=== PATIENT | female | born 1940 | race Caucasian/White ===

== ENCOUNTER → 2016-09-16 | Outpatient (CLI) | payer OTHER ==
[~2016-09-16] MED LIST: ASPCH81X PO; B-COTAB18 PO; CALC-478 PO; CHOL1TAB42 PO; FLUT0.15 NAE; MULT-506 PO; OMEGCAP2 PO; PRLSR20 PO; SIMV20TA2 PO
--- NOTE | 2016-10-20 08:59 | CODING QUERY NO DIAGNOSIS ---
TREATMENT RENDERED WITHOUT A DIAGNOSIS 40 To promote full compliance with coding requirements relating to patient care, physician participation is requested in all cases of milk sampler uncertainty. Please assist us with providing a diagnosis/symptom for the test(s) below: A diagnosis/symptom was not documented on your Order. A valid diagnosis/symptom is required to bill all insurances. Please remember that we are unable to code a diagnosis of rule out, probable, possible, questionable, or suspected. DOS 09/16/16 Tests that require a diagnosis: * LAB DIAGNOSIS: Provider Signature: Date: Thank you Daisy Hadley [employer] Information Management Once completed, please kindly fax back to [phone] For questions please call [phone]
== END | disposition home or self-care (01) ==
LOC: C.LAB 09:07
PROVIDERS: ATTEND Nutritionist
DX: R53.83 Other fatigue (principal)

== ENCOUNTER → 2016-09-19 | Outpatient (CLI) | payer OTHER | END | disposition home or self-care (01) | LOC: C.LAB1850 12:15 | PROVIDERS: ATTEND Internal Medicine Rheumatology | DX: R70.0 Elevated erythrocyte sedimentation rate (principal); M35.3 Polymyalgia rheumatica ==

== ENCOUNTER → 2016-10-18 | Outpatient (CLI) | payer OTHER ==
[2016-10-19 06:30] LABS: ESTIMATED AVERAGE GLUCOSE 111 mg/dl; HA1C FLAG Normal (Normal)
== END | disposition home or self-care (01) ==
LOC: C.LAB1850 16:25
PROVIDERS: ATTEND Internal Medicine Rheumatology
DX: R73.01 Impaired fasting glucose (principal); R70.0 Elevated erythrocyte sedimentation rate; M35.3 Polymyalgia rheumatica

== ENCOUNTER → 2016-10-28 | Outpatient (CLI) | payer OTHER | END | disposition home or self-care (01) | LOC: C.MAMM 08:17 | PROVIDERS: ATTEND Internal Medicine | DX: M35.3 Polymyalgia rheumatica (principal); R29.890 Loss of height; Z78.0 Asymptomatic menopausal state; Z79.52 Long term (current) use of systemic steroids ==

== ENCOUNTER → 2016-12-10 | Outpatient (CLI) | payer OTHER | END | disposition home or self-care (01) | LOC: C.LAB1850 12:18 | PROVIDERS: ATTEND Internal Medicine Rheumatology | DX: M35.3 Polymyalgia rheumatica (principal) ==

== ENCOUNTER → 2017-01-13 | Outpatient (CLI) | payer OTHER ==
[2017-01-13 13:08] LABS: BASO % 0.1 %; BASO ABS # 0.01 K/uL (0-0.2); COMPLETE YES; HEMATOCRIT 36.5 % (37-47); IG% 0.1 %; LYMPH % 10.3 %; LYMPH ABS # 0.98 K/uL (1.2-3.4); MEAN CELL VOLUME 91.3 fL (80-100); MEAN CORPUSCULAR HEMOGLOBIN 30.8 pg (25-34); MEAN CORPUSCULAR HGB CONC 33.7 g/dl (32-36); MEAN PLATELET VOLUME 9.3 fL (7.4-10.4); NEUT % 83.5 %; PLATELET COUNT 279 K/uL (130-400); WHITE BLOOD COUNT 9.52 K/uL (4.8-10.8)
[2017-01-13 14:17] LABS: ALB/GLOB RATIO 0.8 (0.9-2); ALKALINE PHOSPHATASE 65 U/L (45-117); ALT/SGPT 40 U/L (12-78); AST/SGOT 15 U/L (15-37); BLOOD UREA NITROGEN 11 mg/dl (7-18); BUN/CREATININE RATIO 17.3 (10-20); CALCIUM 8.8 mg/dl (8.5-10.1); CARBON DIOXIDE 28 mmol/L (21-32); CHLORIDE 100 mmol/L (98-107); CREATININE 0.66 mg/dl (0.60-1.20); GLUCOSE 115 mg/dl (70-99); HDL CHOLESTEROL 61 mg/dl; SODIUM 138 mmol/L (136-145)
[2017-01-13 14:25] LABS: CHOLESTEROL 125 mg/dl (0-200); LDL CHOLESTEROL CALCULATED 43 mg/dl; THYROID STIMULATING HORMONE 0.285 uIu/ml (0.300-4.500); TRIGLYCERIDES 106 mg/dl (0-150); VERY LOW DENSITY LIPOPROT CALC 21 mg/dl
== END | disposition home or self-care (01) ==
LOC: C.LAB1850 11:38
PROVIDERS: ATTEND Nurse Practitioner Adult Health
DX: M35.3 Polymyalgia rheumatica (principal); E78.00 Pure hypercholesterolemia, unspecified; R00.0 Tachycardia, unspecified

== ENCOUNTER → 2017-01-16 | Outpatient (CLI) | payer OTHER ==
[~2017-01-16] MED LIST changes: +OPTIRAY 320 IV PRN
--- NOTE | 2017-01-16 14:23 | DIAGNOSTIC IMAGING REPORT ---
CT ABD/PELVIS IV AND ORAL CONT CLINICAL HISTORY: Tachycardia, nausea, vomiting, diarrhea. COMPARISON STUDY: None. TECHNIQUE: Following the IV administration of 92 mL of Optiray-320, CT scan of the abdomen and pelvis was performed from the lung bases to the proximal femurs. Images are reviewed in the axial, sagittal, and coronal planes. IV contrast was administered without complication. CT DOSE: 729.33 mGy.cm FINDINGS: Lower chest: The heart is normal in size and configuration, without pericardial effusion. The lung bases and pleural spaces are clear. Liver: There is mild hepatic steatosis. There is a 16 mm left lobe hypodensity, likely representing a cyst. Gallbladder: Surgically absent Spleen: Normal in size and attenuation. Pancreas: No pancreatic masses are visualized. There is infiltration of the central mesenteric fat. There is a 24 mm hypodense lesion abutting the undersurface of the pancreas, Hospital representing a peripancreatic collection. Correlation with appropriate biochemical markers are recommended to help confirm or exclude the presence of pancreatitis. Adrenal glands: Unremarkable. Kidneys: There is symmetric renal cortical enhancement. The kidneys are normal in size without hydronephrosis. Bowel: There are no transition zones indicate bowel obstruction. There is no acute diverticulitis. By history the appendix is surgically absent. Peritoneum: There is no intraperitoneal free air or abdominal ascites. Vasculature: The abdominal aorta is normal in course and caliber. Adenopathy: None. Pelvic viscera: There is a calcified uterine fibroid. There is also a 9 mm exophytic left uterine fibroid. Skeletal structures: No destructive osseous lesions are seen. IMPRESSION: 1. Infiltration of the central mesenteric fat. Peripancreatic fluid collection along the undersurface of the pancreas and abutting the transverse duodenum. Although significant pancreatic edema is not currently visible, the findings are likely the sequela of pancreatitis with a peripancreatic fluid collection. Please correlate clinically as well as with appropriate biochemical markers. 2. No evidence of bowel obstruction. No evidence of free air 3. No evidence of acute diverticulitis 4. Uterine fibroids 5. 16 mm left lobe hepatic hypodensity likely representing a cyst Electronically signed by: Wojciech Estevez M.D. 01/16/2017 2:22 PM Dictated Date/Time: 01/16/2017 2:10 PM
== END | disposition home or self-care (01) ==
LOC: C.CTS 13:13
PROVIDERS: ATTEND Nurse Practitioner Adult Health
DX: R10.814 Left lower quadrant abdominal tenderness (principal); R10.12 Left upper quadrant pain; R19.7 Diarrhea, unspecified; R11.2 Nausea with vomiting, unspecified; R00.0 Tachycardia, unspecified; D25.9 Leiomyoma of uterus, unspecified; K76.9 Liver disease, unspecified

== ENCOUNTER → 2017-01-16 | Outpatient (CLI) | payer OTHER ==
[~2017-01-16] MED LIST changes: -OPTIRAY 320 IV PRN
--- NOTE | 2017-01-16 16:35 | ECHOCARDIOGRAM REPORT ---
*NOTICE TO RECEIVING DEMOCRAT AGENCY This information is strictly Confidential and protected under [place] law. [place] law prohibits you from making any further disclosure of this information unless further disclosure is expressly permitted by the written consent of the person to whom it pertains or is authorized by law. A general authorization for the release of medical or other information is not sufficient for this purpose. Hospital accepts no responsibility if the information is made available to any other person, INCLUDING THE PATIENT. Interpretation Summary * Name: NINFA DURAN Study Date: 01/16/2017 02:02 PM BP: 168/70 mmHg * Patient Location: [facility], [place] HR: 95 * : 1940 (M/d/yyyy) Gender: Female Height: 62 in * Age: 76 yrs Ethnicity: [place] Weight: 180 lb * Ordering Physician: Rose Zelaya * Referring Physician: Abdi Jeffrey * Performed By: Mansi Ryan RCS * * Reason For Study: RIGHT BUNDLE BRANCH BLOCK, TACHYCARDIA * BSA: 1.8 m2 * -- Conclusions -- * The study was technically limited. * There is mild concentric left ventricular hypertrophy. * Left ventricular systolic function is normal. * Grade I diastolic dysfunction, (abnormal relaxation pattern). * Injection of contrast documented no interatrial shunt. Procedure Details * The study was technically limited. Left Ventricle * The left ventricle is normal in size. * There is mild concentric left ventricular hypertrophy. * Left ventricular systolic function is normal. * Ejection Fraction = 60-65%. * Grade I diastolic dysfunction, (abnormal relaxation pattern). Right Ventricle * The right ventricle is normal in size and function. Atria * The left atrial size is normal. * Right atrial size is normal. * Injection of contrast documented no interatrial shunt. Mitral Valve * The mitral valve anatomy is normal. * Significant mitral regurgitation is absent. Tricuspid Valve * The tricuspid valve is not well visualized, but is grossly normal. * Significant tricuspid regurgitation is absent. Aortic Valve * The aortic valve is not well visualized. * No hemodynamically significant valvular aortic stenosis. * Trace aortic regurgitation. Great Vessels * The aortic root is normal size. Pericardium/Pleural * There is no pericardial effusion. Great Vessels * Normal inferior vena cava diameter and respiratory variation suggests normal central venous pressure. MMode 2D Measurements and Calculations IVSd 1.5 cm IVSs 1.6 cm LVIDd 3.3 cm LVIDs 2.2 cm LVPWd 1.3 cm LVPWs 1.8 cm IVS/LVPW 1.1 FS 33.8 % EDV(Teich) 44.5 ml ESV(Teich) 16.1 ml EF(Teich) 63.9 % EDV(cubed) 36.3 ml ESV(cubed) 10.5 ml EF(cubed) 71.0 % % IVS thick 7.8 % % LVPW thick 35.9 % LV mass(C)d 154.8 grams LV mass(C)dI 84.7 grams/m\S\2 LV mass(C)s 130.9 grams LV mass(C)sI 71.6 grams/m\S\2 CO(Teich) 2.7 l/min CI(Teich) 1.5 l/min/m\S\2 SV(Teich) 28.4 ml SI(Teich) 15.6 ml/m\S\2 CO(cubed) 2.4 l/min CI(cubed) 1.3 l/min/m\S\2 SV(cubed) 25.8 ml SI(cubed) 14.1 ml/m\S\2 Ao root diam 3.3 cm Ao root area 8.3 cm\S\2 ACS 1.3 cm LA dimension 3.8 cm asc Aorta Diam 1.9 cm LA/Ao 1.2 LVAd ap4 19.6 cm\S\2 LVLd ap4 7.2 cm EDV(MOD-sp4) 44.0 ml LVAs ap4 10.2 cm\S\2 LVLs ap4 5.8 cm ESV(MOD-sp4) 16.0 ml EF(MOD-sp4) 63.6 % LVAd ap2 18.6 cm\S\2 LVLd ap2 7.3 cm EDV(MOD-sp2) 40.0 ml LVAs ap2 10.0 cm\S\2 LVLs ap2 5.6 cm ESV(MOD-sp2) 15.0 ml EF(MOD-sp2) 62.5 % CO(MOD-sp4) 2.7 l/min CI(MOD-sp4) 1.5 l/min/m\S\2 SV(MOD-sp4) 28.0 ml SI(MOD-sp4) 15.3 ml/m\S\2 CO(MOD-sp2) 2.4 l/min CI(MOD-sp2) 1.3 l/min/m\S\2 SV(MOD-sp2) 25.0 ml SI(MOD-sp2) 13.7 ml/m\S\2 Doppler Measurements and Calculations MV E max kendall 65.9 cm/sec MV A max kendall 107.6 cm/sec MV E/A 0.61 MV P1/2t max kendall 69.5 cm/sec MV P1/2t 129.3 msec MVA(P1/2t) 1.7 cm\S\2 MV dec slope 157.5 cm/sec\S\2 MV dec time 0.18 sec Ao V2 max 138.8 cm/sec Ao max PG 7.7 mmHg Ao max PG (full) 2.3 mmHg AI max kendall 310.2 cm/sec AI max PG 38.7 mmHg AI dec slope 178.0 cm/sec\S\2 AI P1/2t 510.4 msec LV V1 max PG 5.4 mmHg LV V1 max 116.0 cm/sec PA V2 max 109.4 cm/sec PA max PG 4.8 mmHg
== END | disposition home or self-care (01) ==
LOC: C.CPL 13:12
PROVIDERS: ATTEND Nurse Practitioner Adult Health
DX: I45.10 Unspecified right bundle-branch block (principal); R00.0 Tachycardia, unspecified; R10.814 Left lower quadrant abdominal tenderness; R10.12 Left upper quadrant pain; R19.7 Diarrhea, unspecified; R11.2 Nausea with vomiting, unspecified; D25.9 Leiomyoma of uterus, unspecified; K76.9 Liver disease, unspecified

== ENCOUNTER → 2017-02-24 | Outpatient (CLI) | payer OTHER | END | disposition home or self-care (01) | LOC: C.LAB 10:09 | PROVIDERS: ATTEND Internal Medicine Rheumatology | DX: H57.10 Ocular pain, unspecified eye (principal); M35.3 Polymyalgia rheumatica ==

== ENCOUNTER → 2017-05-15 | Outpatient (CLI) | payer OTHER | END | disposition home or self-care (01) | LOC: C.LAB1850 14:02 | PROVIDERS: ATTEND Internal Medicine Rheumatology | DX: M35.3 Polymyalgia rheumatica (principal) ==

== ENCOUNTER → 2017-06-03 | Outpatient (CLI) | payer OTHER ==
--- NOTE | 2017-06-04 07:58 | MAMMOGRAPHY REPORT ---
BILATERAL DIGITAL SCREENING MAMMOGRAM TOMOSYNTHESIS WITH CAD: 06/03/2017 CLINICAL HISTORY: Routine screening. Patient has no complaints. TECHNIQUE: Breast tomosynthesis in addition to standard 2D mammography was performed. Current study was also evaluated with a Computer Aided Detection (CAD) system. COMPARISON: Comparison is made to exams dated: 05/31/2016 mammogram, 05/30/2015 mammogram, 04/14/2014 ma mmogram, 04/13/2013 mammogram, 04/02/2012 mammogram, and 06/12/2016 mammogram - [facility]. BREAST COMPOSITION: There are scattered areas of fibroglandular density in both breasts. FINDINGS: There is a stable ribbon-shaped biopsy marker clip in the lower inner quadrant of the right breast. Scattered and grouped punctate microcalcifications bilaterally. The breast parenchymal pat tern is similar to prior exams including stable asymmetry in the left breast. No new suspicious mass , architectural distortion or cluster of microcalcifications is seen. IMPRESSION: ACR BI-RADS CATEGORY 1: NEGATIVE There is no mammographic evidence of malignancy. A 1 year screening mammogram is recommended. The pa tient will receive written notification of the results. Approximately 10% of breast cancers are not detected with mammography. A negative mammographic report should not delay biopsy if a clinically suggestive mass is present. Melissa Felix M.D. ay/:06/03/2017 21:55:06 Process Excellence Manager: Dayanna CARRERA)(Leanne), [facility] letter sent: Normal 1/2 BI-RADS Code: ACR BI-RADS Category 1: Negative
== END | disposition home or self-care (01) ==
LOC: C.MAMM 14:17
PROVIDERS: ATTEND Internal Medicine
DX: Z12.31 Encounter for screening mammogram for malignant neoplasm of breast (principal)

== ENCOUNTER → 2017-07-07 | Outpatient (CLI) | payer OTHER | END | disposition home or self-care (01) | LOC: C.LAB 10:29 | PROVIDERS: ATTEND Internal Medicine Rheumatology | DX: M54.2 Cervicalgia (principal); M35.3 Polymyalgia rheumatica ==

== ENCOUNTER → 2017-07-14 | Outpatient (CLI) | payer OTHER ==
[2017-07-14 10:16] LABS: BLOOD UREA NITROGEN 17 mg/dl (7-18); BUN/CREATININE RATIO 22.4 (10-20); CALCIUM 9.7 mg/dl (8.5-10.1); CARBON DIOXIDE 31 mmol/L (21-32); CHLORIDE 103 mmol/L (98-107); CHOLESTEROL 180 mg/dl (0-200); CREATININE 0.74 mg/dl (0.60-1.20); GLUCOSE 94 mg/dl (70-99); POTASSIUM 4.1 mmol/L (3.5-5.1); SODIUM 139 mmol/L (136-145)
[2017-07-14 10:19] LABS: CHOLESTEROL/HDL RATIO 2.1; HDL CHOLESTEROL 85 mg/dl; LDL CHOLESTEROL CALCULATED 64 mg/dl; TRIGLYCERIDES 157 mg/dl (0-150); VERY LOW DENSITY LIPOPROT CALC 31 mg/dl
== END | disposition home or self-care (01) ==
LOC: C.LAB 08:31
PROVIDERS: ATTEND Nurse Practitioner Adult Health
DX: E78.00 Pure hypercholesterolemia, unspecified (principal); R73.01 Impaired fasting glucose

== ENCOUNTER → 2017-08-05 | Outpatient (CLI) | payer OTHER | END | disposition home or self-care (01) | LOC: C.LAB 13:51 | PROVIDERS: ATTEND Internal Medicine Rheumatology | DX: M54.2 Cervicalgia (principal); M35.3 Polymyalgia rheumatica ==

== ENCOUNTER → 2017-09-29 | Outpatient (CLI) | payer OTHER | END | disposition home or self-care (01) | LOC: C.LAB1850 11:16 | PROVIDERS: ATTEND Internal Medicine | DX: M35.3 Polymyalgia rheumatica (principal); M46.92 Unspecified inflammatory spondylopathy, cervical region ==

== ENCOUNTER → 2017-11-16 | Outpatient (CLI) | payer OTHER | END | disposition home or self-care (01) | LOC: C.LAB 13:56 | PROVIDERS: ATTEND Internal Medicine Rheumatology | DX: M35.3 Polymyalgia rheumatica (principal) ==

== ENCOUNTER → 2018-01-19 | Outpatient (CLI) | payer OTHER | END | disposition home or self-care (01) | LOC: C.LAB 11:08 | PROVIDERS: ATTEND Internal Medicine Rheumatology | DX: M35.3 Polymyalgia rheumatica (principal); Z79.899 Other long term (current) drug therapy; M25.511 Pain in right shoulder; M25.512 Pain in left shoulder ==

== ENCOUNTER 2023-04-21 05:59 | Inpatient (IN) ==
--- NOTE | 2023-04-17 13:44 | Anesthesiology Consultation ---
Date of Service April 17, 2023 Assessment & Plan (1) Encounter for pre-operative examination: Plan - echocardiogram 04/18/23. - will request most recent [facility] cardiology office note. - discharge summary 04/10/23 [facility]: "...resented with transient left vision loss concerning for TIA. MRI did not show any evidence of acute stroke. CT angiogram showed left internal carotid stenosis. She was started on Plavix and atorvastatin for possible TIA. Patient declined overnight observation and preferred discharge home. She has had a past echo this was not with a dedicated bubble study so PFO could not be definitively ruled out, patient was aware of this and would like to follow-up as outpatient. Her blood pressure was transiently high prior to her home and he is hypertensives being administered, was less than 180 following these administration. 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 Further blood pressure titration to be performed as outpatient. Cannot be ruled out that patient had a transient LRBAO leading to her symptoms, and she has an ipsilateral carotid stenosis. Due to this a follow-up appointment was made with vascular surgery. Case was briefly discussed with vascular during inpatient, and is okay for outpatient follow-up. Plavix has been continued as noted. She was not placed on DAPT as no CVA was appreciated on MRI. 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 Chart Review Chart Review: Pending: Refer to Additional Notes / Consult section and Patient NOT seen in Pre Admission Testing History Surgery Operation Date: 04/21/23 08:00 Proposed Procedures p Left Transcarotid Artery Revascularization - Twan Caldwell MD Height/Weight Height: 5 ft 2 in Weight: 79.379 kg Allergies Allergy/AdvReac Type Severity Reaction Status Date / Time Sulfa (Sulfonamide Allergy Intermediate RASH Verified 04/17/23 08:16 Antibiotics) Cantaloupe AdvReac Mild nauseated Uncoded 04/17/23 08:16 Medications Home Medications Medication Instructions Recorded Confirmed Last Taken vitamin B complex 1 tab PO QAM 08/29/18 04/17/23 04/10/23 fluticasone propionate 50 1 spray intranasal QAM PRN 10/18/22 04/17/23 11/17/22 22:00 mcg/actuation nasal Congestion spray,suspension carvedilol 3.125 mg tablet 3.125 mg PO BID 11/12/22 04/17/23 04/10/23 08:00 cholecalciferol (vitamin D3) 125 125 mcg PO QAM 11/12/22 04/17/23 04/10/23 mcg (5,000 unit) tablet (Vitamin D3) bimatoprost 0.01 % eye drops 1 drp ophthalmic (eye) DAILY 12/25/22 04/17/23 04/10/23 (Lumigan) brimonidine 0.2 %-timolol 0.5 % 1 drp ophthalmic (eye) DIRECTED 12/25/22 04/17/23 Unknown eye drops (Combigan) docusate sodium 100 mg capsule 100 mg PO HS PRN Constipation 12/25/22 04/17/23 Unknown (Colace) amlodipine 2.5 mg tablet 5 mg PO HS 30 days #60 tabs 04/10/23 04/17/23 04/09/23 coenzyme Q10 100 mg capsule 100 mg PO QAM 04/10/23 04/17/23 04/10/23 (CoQ-10) losartan 25 mg tablet 25 mg PO HS 04/10/23 04/17/23 04/09/23 omeprazole 40 mg capsule,delayed 40 mg PO QAM 04/10/23 04/17/23 04/09/23 release turmeric root extract 500 mg tablet 1,000 mg PO QAM 04/10/23 04/17/23 04/10/23 aspirin 81 mg tablet,delayed 81 mg PO QAM 04/17/23 04/17/23 Unknown release atorvastatin 40 mg tablet 40 mg PO HS 04/17/23 04/17/23 Unknown clopidogrel 75 mg tablet 75 mg PO QAM 04/17/23 04/17/23 Unknown Past Medical History Medical History Bifascicular block pt evaluated by anesthesia prior to breast biopsy 10/22/22 with documentation of bifascicular block, preserved EF on recent echo, procedure tolerated by pt per records. Ductal carcinoma in situ (DCIS) of right breast GERD (gastroesophageal reflux disease) History of COVID-26 March 2021 > not hospitalized History of polymyalgia rheumatica was on prednisone for this, per pt cleared it up Hx of breast cancer only surgery Hyperlipidemia Lichen sclerosus et atrophicus Right bundle branch block Sleep apnea mild>no device TIA (transient ischemic attack) hospitalized last at [place] [facility]>blurred vision/dizziness>all resolved (s tarted on plavix and aspirin) Past Family History Family History Mother , Age 60 Stroke Sister Cancer of kidney Pulmonary embolism Father , Lived to be 102; Pacemaker Brother Coronary heart disease S/P CABG x 5 Skin cancer (melanoma) Other Family history non-contributory No family history of adverse response to anesthesia Denies family history of Ovarian cancer Breast cancer Colorectal cancer Past Surgical History Surgical History H/O right breast biopsy (11/05/22) Right Breast Biopsy with Wire Localization(Right) - Adam Mcnamara MD, FACS LMA#4. History of appendectomy History of benign breast biopsy History of bilateral cataract extraction History of cholecystectomy History of colonoscopy with polypectomy History of esophagogastroduodenoscopy (EGD) History of hand surgery left hand History of tonsillectomy History of wisdom tooth extraction Nausea and vomiting after administration of anesthetic agent S/P lumpectomy, right breast Re-excision of margins 11/18/22 Social History Smoking Status: Former smoker tobacco type: cigarettes Do You Dip or Chew Tobacco: No Smoking End Date: 1999 Hx Alcohol Use: Yes Alcohol type: wine alcohol intake frequency: a few times a week substance use type: does not use Lab Results Anesthesia Preop Results Results Anesthesia Widget: WBC 6.26 K/ul (4.8-10.8) 04/10/23 Hgb 12.5 g/dl (12.0-16.0) 04/10/23 Hct 36.3 % (37.0-47.0) L 04/10/23 Plt 238 K/uL (130-400) 04/10/23 Na 137 mmol/L (136-145) 04/10/23 K 4.3 mmol/L (3.5-5.1) 04/10/23 Cl 102 mmol/L (98-107) 04/10/23 CO2 28 mmol/L (21-32) 04/10/23 BUN 26 mg/dl (6-23) H 04/10/23 Creat 0.93 mg/dl (0.6-1.2) 04/10/23 Glucose Level 123 mg/dl (70-99(Fasting)) H 04/10/23 POC Glucose 123 mg/dl (70-99) H 04/10/23 PT 10.3 Seconds (9.0-12.0) 04/10/23 PTT 25.3 Seconds (21.0-31.0) 04/10/23 INR 0.9 (0.9-1.1) 04/10/23 Testing Electrocardiogram Date: 04/10/23 NSR, rate 95 bpm Possible LA enlargement RBBB Left anterior fascicular block bifascicular block Minimal voltage criteria for LVH, may be normal variant Chest X-Ray Date: 04/10/23 *1view* No acute cardiopulmonary findings Echocardiogram Date: 10/24/22 EF 60% No regional wall motion abnormalities Grade I diastolic dysfunction Mild mitral regurgitation Mild tricuspid regurgitation Other Testing Brain MRI 04/10/23 No acute intracranial abnormality. Neck CTA 04/10/23 The examination was reviewed with Dr. Caldwell on 04/16/2023. There is greater than 50% focal stenosis of the proximal left internal carotid artery seen on axial image #[id number]. Head CTA 04/10/23 No central vessel occlusion. No intracranial aneurysm. Head CT 04/10/23 No acute intracranial abnormality identified.
[2023-04-21] MEDS ORDERED: CEFAZOLIN 2,000 MG/15 ML SYR IV SCH (06:00)
[2023-04-21] MEDS ORDERED: SODIUM CHLORIDE 0.9% 1000ML 1,000 ML IV SCH (06:00)
[2023-04-21 06:51] LABS: BUN Creatinine Ratio 16.7 (10-20); Calcium 9.7 mg/dl (8.6-10.3); Creatinine Clr Calc Pharmacy 54.7 ml/min; Est GFR (African American) 82.1 ml/min; Est GFR (Non-African American) 70.8 ml/min; Potassium 3.7 mmol/L (3.5-5.1)
[2023-04-21] MEDS ORDERED: fentaNYL citrate PF 100 MCG/2 ML VIAL IV PRN (07:03)
[2023-04-21] MEDS ORDERED: LIDOCAINE 2% 2 ML VIAL/AMP(20MG/ML) INFIL ONE (07:03)
[2023-04-21] MEDS ORDERED: PROPOFOL IV EMULSION 10 MG/ML 20 ML VIAL IV ONE (07:03)
[2023-04-21] MEDS ORDERED: ATROPINE SULFATE 0.1 MG/ML 10ML SYR IV PRN (07:03)
[2023-04-21] MEDS ORDERED: ePHEDrine sulfate 50 MG/ML AMP IV PRN (07:03)
[2023-04-21] MEDS ORDERED: HYDROmorphone INJ 2 MG/ML SYR/VIAL IV PRN (07:03)
[2023-04-21] MEDS ORDERED: GLYCOPYRROLATE 0.2 MG/ML VIAL ONE ×2 (07:03→08:43)
[2023-04-21] MEDS ORDERED: PHENYLEPHRINE HCL 10 MG/ML VIAL ONE (07:03)
[2023-04-21] MEDS ORDERED: ROCURONIUM BROMIDE 10 MG/ML 5 ML VIAL IV ONE (07:03)
[2023-04-21] MEDS ORDERED: ONDANSETRON INJ 2 MG/ML 2 ML VIAL ONE (07:03)
[2023-04-21] MEDS ORDERED: fentaNYL citrate PF 100 MCG/2 ML VIAL ONE (07:03)
[2023-04-21] MEDS ORDERED: ONDANSETRON INJ 2 MG/ML 2 ML VIAL IV PRN ×2 (07:03→12:18)
[2023-04-21] MEDS ORDERED: HEPARIN SOD (PORCINE) 1000 UNIT/ML ONE ×2 (07:03→09:02)
[2023-04-21] MEDS ORDERED: ceFAZolin 330 MG/ML 1 GM VIAL ONE (07:14)
[2023-04-21] MEDS ORDERED: GELATIN SPONGE SZ 100 ONE (07:14)
[2023-04-21] MEDS ORDERED: THROMBIN FOR SOLN 20000 UNIT KIT ONE (07:14)
[2023-04-21] MEDS ORDERED: BUPIVACAINE/EPINEPHRINE 0.5% MPF 1:200,000 30 ML VIAL ONE (07:14)
[2023-04-21] MEDS ORDERED: MIDAZOLAM HCL 1 MG/ML 2ML VIAL ONE (07:28)
--- NOTE | 2023-04-21 07:46 | History & Physical Report ---
Date of Service April 21, 2023 History of Present Illness Primary Care Provider: MICAELA Cordoba Name: NINFA DURAN Patient Number: [id number] : 1940 Date of Service: 04/16/2023 Chief Complaint: _New patient consultation for symptomatic left ICA stenosis HPI: _Ms. Duran is an elderly female who presents to Dr. Caldwell vascular surgery clinic today as a new patient in consultation for symptomatic left ICA stenosis. She states that she was driving through town last week, and had an episode of dizziness and fuzziness in her head, as well as a loss of a significant portion of her left eye vision. Patient states that she pulled over into a parking lot until it resolved, but is unsure of how long it lasted, ranging anywhere from 10 to 30 minutes. She states she has not had similar episodes since then, but did have a similar episode about a year ago. She did go to the emergency department, and she was kept for overnight and sent home. CTA done at the hospital demonstrated 80% stenosis of her left ICA. She was started on Plavix in addition to her chronic atorvastatin. She has no history of CVA in the past. She denies any palpitations, difficulty speaking or swallowing, facial droop, sudden onset confusion, difficulty moving her arms or legs. Patient denies headache, fever, chest pain, shortness of breath, Sarkis pain, nausea, vomiting, rest pain, claudication, nonhealing wounds or ulcers, other complaints. Review of systems: Total 14 systems were reviewed and are negative aside from what is related in her HPI. Imaging: CTA of her neck demonstrated a left ICA stenosis of over 80%. Current Home Meds: (Last Updated 04/16 11:01) amLODIPine (amLODIPine 5 mg oral tablet) 5 mg PO Daily aspirin (aspirin 81 mg oral delayed release tablet) 81 mg PO Daily atorvastatin (atorvastatin 40 mg oral tablet) 40 mg PO Daily TAKE 1 TABLET BY MOUTH EVERY DAY bimatoprost ophthalmic (Lumigan 0.01% ophthalmic solution) brimonidine-timolol ophthalmic (Combigan 0.2%-0.5% ophthalmic solution) 1 drop both eyes Daily carvedilol (carvedilol 3.125 mg oral tablet) TAKE 1 TABLET BY MOUTH TWO TIMES DAILY cholecalciferol (Vitamin D3 5000 intl units oral capsule) 1 cap PO Daily clobetasol topical (clobetasol 0.05% topical ointment) APPLY A THIN FILM TO VULVA TWO TIMES DAILY FOR 14 DAYS clopidogrel (clopidogrel 75 mg oral tablet) 75 mg PO Daily cyanocobalamin (Vitamin B12) docusate (Colace 100 mg oral capsule) 100 mg PO Daily fluticasone nasal (fluticasone 50 mcg/inh nasal spray) USE 1 SPRAY IN EACH NOSTRIL DAILY losartan (losartan 25 mg oral tablet) 25 mg PO Daily multivitamin with minerals (PreserVision AREDS) omeprazole (omeprazole 40 mg oral delayed release capsule) TAKE 1 CAPSULE DAILY unlisted medication (Tumeric) 1 cap PO Daily Allergies and Sensitivities: lisinopril(cough) Augmentin(abdominal pain) Allergy Not found in Search(Nausea) sulfa drugs(Itching) sulfa drugs(Rash) Past Medical History: Problems: Symptomatic stenosis of left carotid artery Hypertension Essential tremor Acute upper respiratory infection Blackhead Milia Thumb pain History of basal cell carcinoma (BCC) Seborrheic keratoses Labial melanotic macule Gingival hypertrophy Actinic keratoses Female stress incontinence Chronic rhinitis Meade's cyst of knee Osteoarthritis, generalized GERD (gastroesophageal reflux disease) Lichen sclerosus Epidermal cyst Family history of melanoma BCC (basal cell carcinoma) Skin cyst Skin lesion SK (seborrheic keratosis) Knee pain PERSONAL HISTORY OF OTHER MALIGNANT NEOPLASM OF SKIN FAMILY HISTORY OF OTHER SPECIFIED MALIGNANT NEOPLASM Elevated cholesterol Seasonal allergies Reflux Surgical history: Positive for tonsillectomy, cholecystectomy, appendectomy, breast biopsy Family history: Positive for cancer, and stroke in her mother. Social history: Patient has a past history of tobacco use, having smoked 1 pack a day for 40 years and quit in the year 1999. She has 2-3 alcoholic beverages per week. OBJECTIVE Vitals: Last Updated 04/16/23 10:29 Date Temp BP Location Pulse RR SpO2 Pain 04/16/23 0 04/16/23 130/62 Right Arm 04/16/23 134/70 Left Arm 95 98 Vital Signs are the last 3 documented. No Orthostatic Data Available Height and Weight: Last Updated 04/15/23 10:48 Date BMI Wt(kg) Wt(lb) Method Ht(cm) (ft-in) Method 04/15/23 32.54 80.2 176 Standing Scale 157.0 5-2 Standing 02/21/23 79 174 Standing Scale 01/22/23 81.8 180 Standing Scale Heights and Weights are the last 3 documented. Physical Exam Constitutional: In general patient is an overweight but healthy-appearing well- nourished well-developed elderly female in no distress. She is alert and oriented without any focal deficits. Her head is normocephalic and atraumatic. Her carotids are nontender to bruit. Her heart is regular, her lungs are decreased but clear. Her abdomen is soft nontender with normoactive bowel sounds in all 4 quadrants. Brachial and radial pulses are +3. Femoral pulses are +3. Lower extremity distal pulses are +2. She has brisk capillary fill and no sign of distal ischemia. There is no edema. ASSESSMENT: _ PLAN: _ 1 ) _symptomatic left ICA stenosis Patient symptoms are consistent with a left hemispheric TIA in the form of amaurosis. Her CTA demonstrates a severe stenosis of her left ICA, which is a likely source of embolism. Patient was also seen by Dr. Caldwell today. He recommends the patient consider undergoing surgical intervention. The options of carotid endarterectomy versus transfemoral stenting versus transcarotid artery revascularization procedure were discussed at length with the patient. She elects to proceed with TCAR. In addition to her Plavix and atorvastatin, we have added aspirin. She will need to remain on all 3 medications for minimum of 1 year postoperatively. She is aware of this and agreeable. We would like to schedule her procedure next week due to her being symptomatic. Procedure risks benefits and alternatives were discussed with the patient by Dr. Caldwell. Patient expresses understanding and agreement to proceed. She was advised to call with any other questions. Thank you for letting us participate in the care of this patient. Signature Line Electronic Signature on File CC: MICAELA Guadalupe [address] [facility] [address] [place] [address] CC: MICAELA Lira [address] [facility] [address] [place] [address] Electronically Reviewed/Signed by: Svetlana Smith PA-C Author Signature Dt/Tm:04/16/2023 12:23 PM [facility] [address], [facility] [address] [id number] LM Result Type: HVI Outpt Note Date of Service: April 16, 2023 12:13 EDT Authorization Status: Final Author or Import Date: GABRIELLE Smith Lynn on April 16, 2023 12:23 EDT Verified By: GABRIELLE Smith Lynn on April 16, 2023 12:23 EDT Encounter info: [id number], [facility], Clinic, 04/16/2023 - 04/16/2023 Allergies Allergy/AdvReac Type Severity Reaction Status Date / Time Sulfa (Sulfonamide Allergy Intermediate RASH Verified 04/17/23 08:16 Antibiotics) Cantaloupe AdvReac Mild nauseated Uncoded 04/17/23 08:16 Home Medications Medication Instructions Recorded Confirmed Type vitamin B complex 1 tab PO QAM 08/29/18 04/21/23 History fluticasone propionate 50 1 spray intranasal QAM PRN 10/18/22 04/21/23 History mcg/actuation nasal Congestion spray,suspension carvedilol 3.125 mg tablet 3.125 mg PO BID 11/12/22 04/21/23 History cholecalciferol (vitamin D3) 125 125 mcg PO QAM 11/12/22 04/21/23 History mcg (5,000 unit) tablet (Vitamin D3) bimatoprost 0.01 % eye drops 1 drp ophthalmic (eye) DAILY 12/25/22 04/21/23 History (Lumigan) brimonidine 0.2 %-timolol 0.5 % 1 drp ophthalmic (eye) DIRECTED 12/25/22 04/21/23 History eye drops (Combigan) docusate sodium 100 mg capsule 100 mg PO HS PRN Constipation 12/25/22 04/21/23 History (Colace) amlodipine 2.5 mg tablet 5 mg PO HS 30 days #60 tabs 04/10/23 04/21/23 Rx coenzyme Q10 100 mg capsule 100 mg PO QAM 04/10/23 04/21/23 History (CoQ-10) losartan 25 mg tablet 25 mg PO HS 04/10/23 04/21/23 History omeprazole 40 mg capsule,delayed 40 mg PO QAM 04/10/23 04/21/23 History release turmeric root extract 500 mg tablet 1,000 mg PO QAM 04/10/23 04/21/23 History aspirin 81 mg tablet,delayed 81 mg PO QAM 04/17/23 04/21/23 History release atorvastatin 40 mg tablet 40 mg PO HS 04/17/23 04/21/23 History clopidogrel 75 mg tablet 75 mg PO QAM 04/17/23 04/21/23 History Past Med/Surg History Medical History Bifascicular block pt evaluated by anesthesia prior to breast biopsy 10/22/22 with documentation of bifascicular block, preserved EF on recent echo, procedure tolerated by pt per records. Ductal carcinoma in situ (DCIS) of right breast GERD (gastroesophageal reflux disease) History of COVID-26 March 2021 > not hospitalized History of polymyalgia rheumatica was on prednisone for this, per pt cleared it up Hx of breast cancer only surgery Hyperlipidemia Lichen sclerosus et atrophicus Right bundle branch block Sleep apnea mild>no device TIA (transient ischemic attack) hospitalized last at [facility]>blurred vision/dizziness>all resolved (started on plavix and aspirin) Surgical History H/O right breast biopsy (11/05/22) Right Breast Biopsy with Wire Localization(Right) - Adam Mcnamara MD, FACS LMA#4. History of appendectomy History of benign breast biopsy History of bilateral cataract extraction History of cholecystectomy History of colonoscopy with polypectomy History of esophagogastroduodenoscopy (EGD) History of hand surgery left hand History of tonsillectomy History of wisdom tooth extraction Nausea and vomiting after administration of anesthetic agent S/P lumpectomy, right breast Re-excision of margins 11/18/22 Family History Mother , Age 60 Stroke Sister Cancer of kidney Pulmonary embolism Father , Lived to be 102; Pacemaker Brother Coronary heart disease S/P CABG x 5 Skin cancer (melanoma) Other Family history non-contributory No family history of adverse response to anesthesia Denies family history of Ovarian cancer Breast cancer Colorectal cancer Social History Smoking Status: Former smoker Tobacco Type: Cigarettes Age Started Using Tobacco: 19; Age Quit Using Tobacco: 60; packs per day: 1; Smoking End Date: 1999; Second Hand Exposure: No; Do You Dip or Chew Tobacco: No; Hx Alcohol Use: Yes Alcohol type: wine Alcohol Intake Frequency: 2-3 x/Week Preferred Language: Telugu Communication Ability: Effective Supervisor Clam Bed Required: No Beliefs That Will Affect Care: None marital status: Current Living Situation: Spouse current occupational status: retired Feels Safe at Home: Yes Safety Concerns: Feels Safe At This Time Assistive Devices: Glasses Results & Data Vital Signs (Past 12 Hours) Vital Signs Temp Pulse Resp BP Pulse Ox O2 Del Method 04/21/23 06:21 36.7 C 96 H 18 169/94 H 100 Room Air
--- NOTE | 2023-04-21 07:46 | History & Physical Bridge Note ---
Date of Service April 21, 2023 History & Physical Bridge Note I have examined the patient, reviewed the History & Physical and in the interval since the performance of the History & Physical I have noted the following changes of clinical significance: no changes noted
[2023-04-21] MEDS ORDERED: ePHEDrine sulfate 50 MG/ML SYR ONE (08:36)
[2023-04-21] MEDS ORDERED: SUGAMMADEX SODIUM 200 MG/2 ML VIAL IV ONE (08:56)
[2023-04-21] MEDS ORDERED: SURGICEL ABSORB HEMOSTAT 2IN X 14IN TOP ONE (09:01)
[2023-04-21] MEDS ORDERED: VISIPAQUE IV PRN (09:01)
[2023-04-21] MEDS ORDERED: ePHEDrine sulfate 50 MG/ML AMP ONE (09:16)
[2023-04-21] MEDS ORDERED: PROTAMINE SULFATE 10 MG/ML 5 ML VIAL IV ONE (09:19)
--- NOTE | 2023-04-21 09:40 | Anesthesia Procedure Note ---
Anesthesia Procedure Note Arterial Line Note Patient medical history, medications, allergies and vitals reviewed. Date of procedure: 04/21/23 Consent: Risk / Benefits Reviewed With: PT / POA / Parent / Guardian, Accepts Plan, Informed Consent Obtained and All Questions Answered Monitors attached: Blood Pressure, CO2, EKG and Pulse Oximetry Oxygen delivery method: Mask Time out completed: Yes Premedication: Midazolam (mg) Laterality: Left Location: Radial Hand hygeine: Soap and water and Alcohol based hand rub Equipment/Supplies: Cap, Mask and Sterile gloves Skin prep: 70% alcohol Local medication: 1% Lidocaine (ml) Ultrasound used: Yes US equipment and supplies: Sterile Gel and Sterile Probe Cover Attempts: 1 Procedure Summary: 20 gauge angiocath advanced until return of bright red blood. Catheter threaded using seldinger technique with return of pulsatile, bright red blood. Catheter secured with tape and covered with occlusive dressing. Waveform consistent with correct arterial placement. After placement, normal perfusion was observed distal to the site of catheter placement. Post-Procedure: Pt hemodynamically stable, Pt tolerates well and No complication Anesthesia Charges Arterial Line A Line Charges: 87943 Insert Art line Samp/Mon/Daigle
--- NOTE | 2023-04-21 09:44 | Procedure Note ---
Angiogram Post Procedure Fluoroscopy Time (minutes): 3.2 Radiation (mGy): 36 Contrast: 15 Post Operative Report Pre & Post Diagnosis Operation Date: 04/21/23 08:00 Pre-Op Diagnosis: Left Internal Carotid Artery Stenosis Post-Op Diagnosis: Left Internal Carotid Artery Stenosis I identified the patient and participated in the time-out.: Yes Procedure Operation Date: 04/21/23 08:00 Actual Procedures p Left Transcarotid Artery Revascularization(Left), Ultrasound localization of right common femoral vein - Twan Caldwell MD Surgeon Twan Caldwell MD Threat Analyst John,PAC Estimated Blood Loss 10 Findings Consistent with Post-Op Diagnosis Specimens none Anesthesia Type General Complications none Disposition Accompanied Patient To Recovery: No Disposition: Recovery Room Indications This is an 82-year-old female who was found to have amaurosis fugax of the left eye. CT angio showed a 80% narrowing of her left internal carotid artery on axial views. Endarterectomy versus TCAR were discussed with the patient. She elected to go ahead with a TCAR. She was a TCAR candidate. I have discussed the risks options and benefits of the procedure with the patient. The patient understands the risks options and benefits and agrees to the procedure. Description of Procedure The patient was taken to the operating room and placed in supine position. After general anesthesia was accomplished the groins and left side of the neck and chest were prepped and draped in a sterile manner. Timeout was performed and the patient was identified. A transverse incision was made just above the clavicle between the heads of the sternocleidomastoid. This is carried down to where the common carotid artery was identified. It was isolated. It was slung with umbilical tape and Tasha tourniquet. Next the U stitch was placed in the common carotid artery with a 5-0 Prolene suture. Patient was given 8000 heparin at that time. Ultrasound was then used to localize the left common femoral vein. The vein was patent and compressed easily. Under ultrasound guidance the right common femoral vein was punctured and the venous sheath was inserted. This was aspirated and flushed with heparinized saline. ACT at that time was 269. Using micropuncture technique the common carotid artery was punctured. The micro sheath was inserted to 2.5 cm. Injection was then done showing the bifurcation. There was a significant lesion seen at the origin of the internal carotid artery on the left side. We then inserted the J-wire left and short of the lesion. The micro sheath was removed and the TCAR sheath was inserted. Once it was in place and held against the artery it was sutured to the chest wall and the incision edge. We then flushed the tubing appropriately. The venous return to was clamped onto the TCAR sheath. It was flushed through and then attached to the venous inflow sheath in the left groin. Sheath was checked for flow. The saline cleared nicely. The common carotid artery was then clamped using a Tasha tourniquet. Flow reversal was instituted. We inserted a 4.5 x 35 balloon backloaded on the wire. The wire was passed through the lesion into the petrous portion of the internal carotid. The 4.5 balloon was then advanced to the lesion. Lesion was then predilated with a 4.5 mm balloon. Balloon was removed. We then inserted the 8 x 40 stent. This was deployed across the lesion without difficulty. The catheter was removed. The carotid was allowed to go 2 minutes with flow reversal. Completion angiogram was done at that time which showed a waist still present in the carotid stent. We then inserted a 5 x 35 balloon and postdilated this area. This was dilated to 14 dain of pressure and 5.3 mm in size. It was allowed to undergo flow reversal for the 2 minutes. After this time we did another angiogram which showed the stent to be widely patent with good flow and minimal residual narrowing of the lesion. At that point the common carotid artery was unclamped. The venous return tubing was clamped and removed from the TCAR sheath. The blood was allowed to flow back into the venous system. Once this was completed the sheath was pulled from the groin and pressure was applied. The TCAR sheath was then removed and the 5- 0 Prolene suture securely tied. Hemostasis was noted of the puncture site. Wound was irrigated with Ancef solution. Adequate hemostasis was obtained of the wound. Once this was noted the wound was closed in usual fashion using a 3- 0 Vicryl suture for the subcutaneous layer and a 4-0 subcuticular Vicryl suture for the skin edges. Dermabond was used for dressing.The patient left the operation room in satisfactory condition and tolerated the procedure well. All needle and sponge counts were correct at the end of the procedure. Svetlana Smith Pac assisted due to lack of resident availability and was necessary for positioning, draping, retraction, wound closure deep layers, subcutaneous tissue, and skin closure and was necessary for assisting with the case. I attest to the content of the Intraoperative Record and any orders documented therein. Any exceptions are noted below.
[2023-04-21] MEDS ORDERED: LABETALOL HCL IV 5 MG/ML 20ML IV ONE (09:45)
--- NOTE | 2023-04-21 12:08 | Anesthesiology Progress Note ---
Date of Service April 21, 2023 Anesthesia Post Procedure Vital Signs Vital Signs: Temp Pulse Pulse Resp BP BP Pulse Ox 04/21/23 11:45 85 15 108/54 L 116/60 95 04/21/23 11:30 79 12 115/50 L 123/59 L 95 04/21/23 11:15 80 17 115/51 L 123/59 L 95 04/21/23 11:00 85 17 115/54 L 123/60 95 04/21/23 10:45 82 18 116/50 L 126/62 96 04/21/23 10:35 36.4 C L 85 22 113/58 L 116/58 L 95 04/21/23 10:25 82 17 127/53 L 129/66 95 04/21/23 10:10 84 17 111/61 134/67 98 04/21/23 10:15 82 16 93/52 L 137/67 98 04/21/23 10:05 83 19 149/69 H 99 04/21/23 09:58 35.9 C L 86 12 149/79 H 98 04/21/23 06:21 36.7 C 96 H 18 169/94 H 100 O2 Del Method O2 Flow Rate 04/21/23 11:45 Nasal Cannula 2 04/21/23 11:30 Nasal Cannula 2 04/21/23 11:15 Nasal Cannula 2 04/21/23 11:00 Nasal Cannula 2 04/21/23 10:45 Nasal Cannula 2 04/21/23 10:35 Nasal Cannula 2 04/21/23 10:25 Nasal Cannula 2 04/21/23 10:10 Oxymask 8 04/21/23 10:15 Oxymask 8 04/21/23 10:05 Oxymask 8 04/21/23 09:58 Oxymask 8 04/21/23 06:21 Room Air Pain Intensity Right Groin: Pain Intensity: 2 Transfer of Care Handoff Completed per policy Notes Mental Status: alert / awake / arousable and participated in evaluation Patient Amnestic to Procedure: Yes Nausea / Vomiting: adequately controlled Pain: adequately controlled Airway Patency, RR, SpO2: stable & adequate BP & HR: stable & adequate Hydration State: stable & adequate Anesthetic Complications: no major complications apparent and Pt Satisfied with anesthetic care
[2023-04-21] MEDS ORDERED: FLUTICASONE PROPIONATE NA SPR 16 GM BTL PRN (12:18)
[2023-04-21] MEDS ORDERED: DOCUSATE SODIUM 100 MG CAP PO PRN (12:18)
[2023-04-21] MEDS: LACTATED RINGER'S 1,000 ML IV SCH ×2 (12:58→20:36)
--- NOTE | 2023-04-21 14:54 | Critical Care Consultation ---
Date of Consultation April 21, 2023 Assessment & Plan (1) Carotid artery stenosis: Patient is an 82-year-old female postop day 0 from a left transcarotid artery revascularization. - Continue Norvasc 5 mg for hypertension -Continue Lipitor 40 mg, aspirin 81 mg, Coreg 3.125 mg, Plavix 75 mg Analgesia per vascular surgery. (2) Hypercholesterolemia: History of Present Illness Reason for Consultation: Postop TCAR Attending Physician: Twan Caldwell MD Allergies Allergy/AdvReac Type Severity Reaction Status Date / Time Sulfa (Sulfonamide Allergy Intermediate RASH Verified 04/17/23 08:16 Antibiotics) melon AdvReac Mild Nausea Verified 04/21/23 13:27 cantaloupe AdvReac Nausea Verified 04/21/23 13:26 Cantaloupe Allergy Mild nauseated Uncoded 04/21/23 13:27 Home Medications Medication Instructions Recorded Confirmed Type vitamin B complex 1 tab PO QAM 08/29/18 04/21/23 History fluticasone propionate 50 1 spray intranasal QAM PRN 10/18/22 04/21/23 History mcg/actuation nasal Congestion spray,suspension carvedilol 3.125 mg tablet 3.125 mg PO BID 11/12/22 04/21/23 History cholecalciferol (vitamin D3) 125 125 mcg PO QAM 11/12/22 04/21/23 History mcg (5,000 unit) tablet (Vitamin D3) bimatoprost 0.01 % eye drops 1 drp ophthalmic (eye) DAILY 12/25/22 04/21/23 History (Lumigan) brimonidine 0.2 %-timolol 0.5 % 1 drp ophthalmic (eye) DIRECTED 12/25/22 04/21/23 History eye drops (Combigan) docusate sodium 100 mg capsule 100 mg PO HS PRN Constipation 12/25/22 04/21/23 History (Colace) amlodipine 2.5 mg tablet 5 mg PO HS 30 days #60 tabs 04/10/23 04/21/23 Rx coenzyme Q10 100 mg capsule 100 mg PO QAM 04/10/23 04/21/23 History (CoQ-10) losartan 25 mg tablet 25 mg PO HS 04/10/23 04/21/23 History omeprazole 40 mg capsule,delayed 40 mg PO QAM 04/10/23 04/21/23 History release turmeric root extract 500 mg tablet 1,000 mg PO QAM 04/10/23 04/21/23 History aspirin 81 mg tablet,delayed 81 mg PO QAM 04/17/23 04/21/23 History release atorvastatin 40 mg tablet 40 mg PO HS 04/17/23 04/21/23 History clopidogrel 75 mg tablet 75 mg PO QAM 04/17/23 04/21/23 History Patient History Medical History Bifascicular block pt evaluated by anesthesia prior to breast biopsy 10/22/22 with documentation of bifascicular block, preserved EF on recent echo, procedure tolerated by pt per records. Ductal carcinoma in situ (DCIS) of right breast GERD (gastroesophageal reflux disease) History of COVID-26 March 2021 > not hospitalized History of polymyalgia rheumatica was on prednisone for this, per pt cleared it up Hx of breast cancer only surgery Hyperlipidemia Lichen sclerosus et atrophicus Right bundle branch block Sleep apnea mild>no device TIA (transient ischemic attack) hospitalized last at [facility]>blurred vision/dizziness>all resolved (started on plavix and aspirin) Surgical History H/O right breast biopsy (11/05/22) Right Breast Biopsy with Wire Localization(Right) - Adam Mcnamara MD, FACS LMA#4. History of appendectomy History of benign breast biopsy History of bilateral cataract extraction History of cholecystectomy History of colonoscopy with polypectomy History of esophagogastroduodenoscopy (EGD) History of hand surgery left hand History of tonsillectomy History of wisdom tooth extraction Nausea and vomiting after administration of anesthetic agent S/P lumpectomy, right breast Re-excision of margins 11/18/22 Family History Mother , Age 60 Stroke Sister Cancer of kidney Pulmonary embolism Father , Lived to be 102; Pacemaker Brother Coronary heart disease S/P CABG x 5 Skin cancer (melanoma) Other Family history non-contributory No family history of adverse response to anesthesia Denies family history of Ovarian cancer Breast cancer Colorectal cancer Social History Smoking Status: Former smoker Tobacco Type: Cigarettes Age Started Using Tobacco: 19; Age Quit Using Tobacco: 60; packs per day: 1; Smoking End Date: 1999; Second Hand Exposure: No; Do You Dip or Chew Tobacco: No; Hx Alcohol Use: Yes Alcohol type: wine Alcohol Intake Frequency: 2-3 x/Week Preferred Language: Slovak Communication Ability: Effective Scrap Preparer Required: No Beliefs That Will Affect Care: None marital status: Current Living Situation: Spouse current occupational status: retired Feels Safe at Home: Yes Safety Concerns: Feels Safe At This Time Assistive Devices: Glasses Review of Systems Review of Systems: Mild irritation with moving head to the left. No headache no shortness of breath. Physical Exam Physical Exam: General: Alert. nontoxic. Skin: Warm, dry, Head: Bilateral ecchymoses over eyelids, reports this was from surgical tape Neck: Incision clean dry and intact mild swelling around the supraclavicular incision site Ears, nose, mouth and throat: airway patent Cardiovascular: Normal peripheral perfusion Respiratory: no respiratory distress Gastrointestinal: Non distended Musculoskeletal: No deformity Results & Data Results & Data Vital Signs (Past 12 Hours) Vital Signs Temp Pulse Pulse Pulse Resp BP BP 04/21/23 14:15 91 H 20 04/21/23 14:15 115/65 04/21/23 14:00 97 H 27 H 121/69 04/21/23 13:45 89 18 114/61 04/21/23 13:30 88 19 118/61 04/21/23 13:15 124/64 04/21/23 13:15 85 18 04/21/23 13:00 90 23 04/21/23 13:00 123/67 04/21/23 13:18 87 20 04/21/23 12:45 86 25 H 116/58 L 04/21/23 12:30 82 16 111/57 L 04/21/23 12:00 04/21/23 12:15 87 22 110/58 L 04/21/23 12:06 88 18 103/73 04/21/23 12:06 36.5 C 04/21/23 11:45 85 15 108/54 L 04/21/23 11:30 79 12 115/50 L 04/21/23 11:15 80 17 115/51 L 04/21/23 11:00 85 17 115/54 L 04/21/23 10:45 82 18 116/50 L 04/21/23 10:35 36.4 C L 85 22 113/58 L 04/21/23 10:25 82 17 127/53 L 04/21/23 10:10 84 17 111/61 04/21/23 10:15 82 16 93/52 L 04/21/23 10:05 83 19 04/21/23 09:58 35.9 C L 86 12 04/21/23 06:21 36.7 C 96 H 18 BP Pulse Ox O2 Del Method O2 Flow Rate 04/21/23 14:15 93 04/21/23 14:15 04/21/23 14:00 94 Room Air 04/21/23 13:45 94 Room Air 04/21/23 13:30 93 Room Air 04/21/23 13:15 04/21/23 13:15 98 Nasal Cannula 2 04/21/23 13:00 97 04/21/23 13:00 04/21/23 13:18 118/61 93 Nasal Cannula 2 04/21/23 12:45 98 Nasal Cannula 2 04/21/23 12:30 99 Nasal Cannula 2 04/21/23 12:00 Nasal Cannula 4 04/21/23 12:15 96 Nasal Cannula 4 04/21/23 12:06 94 Nasal Cannula 4 04/21/23 12:06 04/21/23 11:45 116/60 95 Nasal Cannula 2 04/21/23 11:30 123/59 L 95 Nasal Cannula 2 04/21/23 11:15 123/59 L 95 Nasal Cannula 2 04/21/23 11:00 123/60 95 Nasal Cannula 2 04/21/23 10:45 126/62 96 Nasal Cannula 2 04/21/23 10:35 116/58 L 95 Nasal Cannula 2 04/21/23 10:25 129/66 95 Nasal Cannula 2 04/21/23 10:10 134/67 98 Oxymask 8 04/21/23 10:15 137/67 98 Oxymask 8 04/21/23 10:05 149/69 H 99 Oxymask 8 04/21/23 09:58 149/79 H 98 Oxymask 8 04/21/23 06:21 169/94 H 100 Room Air Critical Care Results & Data Vital Signs (Past 12 Hours) Vital Signs Temp Pulse Pulse Pulse Resp BP BP 04/21/23 14:15 91 H 20 04/21/23 14:15 115/65 04/21/23 14:00 97 H 27 H 121/69 04/21/23 13:45 89 18 114/61 04/21/23 13:30 88 19 118/61 04/21/23 13:15 124/64 04/21/23 13:15 85 18 04/21/23 13:00 90 23 04/21/23 13:00 123/67 04/21/23 13:18 87 20 04/21/23 12:45 86 25 H 116/58 L 04/21/23 12:30 82 16 111/57 L 04/21/23 12:00 04/21/23 12:15 87 22 110/58 L 04/21/23 12:06 88 18 103/73 04/21/23 12:06 36.5 C 04/21/23 11:45 85 15 108/54 L 04/21/23 11:30 79 12 115/50 L 04/21/23 11:15 80 17 115/51 L 04/21/23 11:00 85 17 115/54 L 04/21/23 10:45 82 18 116/50 L 04/21/23 10:35 36.4 C L 85 22 113/58 L 04/21/23 10:25 82 17 127/53 L 04/21/23 10:10 84 17 111/61 04/21/23 10:15 82 16 93/52 L 04/21/23 10:05 83 19 04/21/23 09:58 35.9 C L 86 12 04/21/23 06:21 36.7 C 96 H 18 BP Pulse Ox O2 Del Method O2 Flow Rate 04/21/23 14:15 93 04/21/23 14:15 04/21/23 14:00 94 Room Air 04/21/23 13:45 94 Room Air 04/21/23 13:30 93 Room Air 04/21/23 13:15 04/21/23 13:15 98 Nasal Cannula 2 04/21/23 13:00 97 04/21/23 13:00 04/21/23 13:18 118/61 93 Nasal Cannula 2 04/21/23 12:45 98 Nasal Cannula 2 04/21/23 12:30 99 Nasal Cannula 2 04/21/23 12:00 Nasal Cannula 4 04/21/23 12:15 96 Nasal Cannula 4 04/21/23 12:06 94 Nasal Cannula 4 04/21/23 12:06 04/21/23 11:45 116/60 95 Nasal Cannula 2 04/21/23 11:30 123/59 L 95 Nasal Cannula 2 04/21/23 11:15 123/59 L 95 Nasal Cannula 2 04/21/23 11:00 123/60 95 Nasal Cannula 2 04/21/23 10:45 126/62 96 Nasal Cannula 2 04/21/23 10:35 116/58 L 95 Nasal Cannula 2 04/21/23 10:25 129/66 95 Nasal Cannula 2 04/21/23 10:10 134/67 98 Oxymask 8 04/21/23 10:15 137/67 98 Oxymask 8 04/21/23 10:05 149/69 H 99 Oxymask 8 04/21/23 09:58 149/79 H 98 Oxymask 8 04/21/23 06:21 169/94 H 100 Room Air Lab & Micro Results (Past 24 Hours) No Data to Display Na 138 mmol/L (136-145) 04/21/23 K 3.7 mmol/L (3.5-5.1) 04/21/23 Cl 101 mmol/L (98-107) 04/21/23 CO2 31 mmol/L (21-32) 04/21/23 Anion Gap 6 (3-11) 04/21/23 BUN 13 mg/dl (6-23) 04/21/23 Creatinine 0.78 mg/dl (0.6-1.2) 04/21/23 Estimated GFR ( Amer) 82.1 ml/min 04/21/23 Estimated GFR (Non-Af Amer) 70.8 ml/min 04/21/23 BUN/Creatinine Ratio 16.7 (10-20) 04/21/23 Glu 98 mg/dl (70-99(Fasting)) 04/21/23 Ca 9.7 mg/dl (8.6-10.3) 04/21/23 Calcium Level 9.7 mg/dl (8.6-10.3) 04/21/23 06:13 I & O Totals 24 Hours 04/20/23 04/21/23 04/22/23 06:59 06:59 06:59 Intake Total 1100 / 1100 Output Total 10 10 Balance 1090 / 1090 Cumulative 04/16/23 11:44 thru 04/21/23 12:00 Intake Total 1100 Output Total 10 Balance 1090 RT Ventilator Mngmt (Last Documented) Ventilator Ordered Settings Respiratory Rate 20 04/21/23 14:15 Ventilator - PT Measurements Respiratory Rate 20 Coding Level of Care Code 44972 IN/OBS CONSULT LVL 2,35M Diagnoses Carotid artery stenosis I65.29 Hypercholesterolemia E78.00
[2023-04-21] MEDS: ceFAZolin 2000MG 2,000 MG/15 ML SYR IV SCH ×2 (16:23→23:42)
[2023-04-21] MEDS: carvediloL 3.125 MG TAB PO SCH (20:36)
[2023-04-21] MEDS ORDERED: ATORVASTATIN 40 MG TAB PO SCH (21:00)
[2023-04-21] MEDS ORDERED: LOSARTAN POTASSIUM 25 MG TAB PO SCH (21:00)
[2023-04-21] MEDS ORDERED: amLODIPine BESYLATE 5 MG TAB PO SCH (21:00)
[2023-04-21] MEDS: oxyCODONE/ACETAMINOPHEN 5mg/325mg TAB PO PRN (22:08)
[2023-04-22] MEDS: LACTATED RINGER'S 1,000 ML IV SCH (06:37)
[2023-04-22] MEDS: oxyCODONE/ACETAMINOPHEN 5mg/325mg TAB PO PRN (07:26)
[2023-04-22] MEDS: carvediloL 3.125 MG TAB PO SCH ×2 (08:32→08:44)
[2023-04-22] MEDS ORDERED: BIMATOPROST 0.01% OP SOLN 2.5 ML BTL OP SCH (09:00)
[2023-04-22] MEDS ORDERED: VITAMIN B COMPLEX TAB PO SCH (09:00)
[2023-04-22] MEDS ORDERED: CHOLECALCIFEROL 5,000 UNITS 125 MCG TAB PO SCH (09:00)
[2023-04-22] MEDS ORDERED: CLOPIDOGREL BISULFATE 75 MG TAB PO SCH (09:00)
[2023-04-22] MEDS ORDERED: NON-FORMULARY MEDICATION (Turmeric Root Extract 500 mg Tablet) PO SCH (09:00)
[2023-04-22] MEDS ORDERED: NON-FORMULARY MEDICATION (Coenzyme Q10 [Coq-10] 100 mg Capsule) PO SCH (09:00)
[2023-04-22] MEDS ORDERED: ASPIRIN 81 MG ECTAB PO SCH (09:00)
[2023-04-22] MEDS ORDERED: PANTOprazole 40 MG TAB PO SCH (09:00)
--- NOTE | 2023-04-22 13:35 | Surgery Progress Note ---
Date of Service April 22, 2023 Assessment & Plan (1) Internal carotid artery stent present: Plan: Pt now POD #1 after uncomplicated L TCAR. Doing well post op. Did have some mild hypotension earlier this morning, but this is resolved. Discussed with Dr Caldwell, eusebia d/c home today. Admission and Anticipated Discharge Date Admission Date: April 21, 2023 Subjective 82 yo f POD #1 after L TCAR procedure, seen in f/u today. Pt admits some pain in L neck incision, and some fatigue and hoarseness. States she felt a little "fuzzy" or dizzy earlier, but not presently. Denies any other new complaints. Review of Systems Review of Systems: All systems reviewed & are unremarkable except as noted in HPI & below Physical Exam Constitutional: WD/WN, vitals as above cooperative; not in distress Neck: trachea midline Respiratory: normal respiratory effort, lungs clear to auscultation Auscultation: + diminished lung sounds Cardiovascular: Rate/Rhythm: regular rate and regular rhythm Vessels: femoral pulses present, posterior tibial pulses present, dorsalis pedis pulses present and radial pulses present Extremities: normal capillary refill Gastrointestinal (Abdomen): Inspection/Auscultation: abdomen normal to inspection and normal bowel sounds Percussion/Palpation: abdomen soft; abdomen nontender Musculoskeletal: no cyanosis or clubbing, extremities motor strength 5/5 Skin: no rashes, warm and dry + incision (L supraclavicular C/D/I, local ecchymosis/tenderness/mild swelling) Neurologic: moves all extremities and awake; no focal motor deficits and not confused Psychiatric: A+Ox3, euthymic affect Results & Data Vital Signs (Past 12 Hours) Vital Signs Temp Pulse Pulse Resp BP BP Pulse Ox 04/22/23 12:14 94 H 19 133/64 96 04/22/23 12:15 36.4 C L 04/22/23 13:00 36.4 C L 106 H 20 133/64 95 04/22/23 10:59 89 13 112/59 L 92 04/22/23 10:00 93 H 17 113/56 L 90 04/22/23 07:00 36.6 C 04/22/23 09:05 99 H 23 118/72 91 04/22/23 08:09 102 H 18 112/61 93 04/22/23 08:00 102 H 15 95/58 L 92 04/22/23 07:00 95 H 18 120/63 91 04/22/23 06:52 95 H 20 131/81 93 04/22/23 06:30 93 H 22 91 04/22/23 06:00 91 H 21 92 04/22/23 05:30 102 H 16 93 04/22/23 05:00 82 13 92 04/22/23 05:00 112/78 04/22/23 04:30 92 H 16 92 04/22/23 04:00 96 H 15 91 04/22/23 04:00 126/75 04/22/23 03:30 91 H 9 L 89 L 04/22/23 03:00 93 H 13 92 04/22/23 03:00 93/64 L 04/22/23 02:30 90 10 L 89 L 04/22/23 02:00 95 H 17 93 04/22/23 02:00 117/59 L O2 Del Method 04/22/23 12:14 Room Air 04/22/23 12:15 04/22/23 13:00 04/22/23 10:59 Room Air 04/22/23 10:00 Room Air 04/22/23 07:00 04/22/23 09:05 Room Air 04/22/23 08:09 Room Air 04/22/23 08:00 Room Air 04/22/23 07:00 Room Air 04/22/23 06:52 Room Air 04/22/23 06:30 04/22/23 06:00 04/22/23 05:30 04/22/23 05:00 04/22/23 05:00 04/22/23 04:30 04/22/23 04:00 04/22/23 04:00 04/22/23 03:30 04/22/23 03:00 04/22/23 03:00 04/22/23 02:30 04/22/23 02:00 04/22/23 02:00
--- NOTE | 2023-04-22 13:36 | Discharge Summary ---
Date of Service April 22, 2023 Admission HPI Per Admitting Provider Name: NINFA DURAN Patient Number: [id number] : 1940 Date of Service: 04/16/2023 Chief Complaint: _New patient consultation for symptomatic left ICA stenosis HPI: _Ms. Duran is an elderly female who presents to Dr. Jones vascular surgery clinic today as a new patient in consultation for symptomatic left ICA stenosis. She states that she was driving through town last week, and had an episode of dizziness and fuzziness in her head, as well as a loss of a significant portion of her left eye vision. Patient states that she pulled over into a parking lot until it resolved, but is unsure of how long it lasted, ranging anywhere from 10 to 30 minutes. She states she has not had similar episodes since then, but did have a similar episode about a year ago. She did go to the emergency department, and she was kept for overnight and sent home. CTA done at the hospital demonstrated 80% stenosis of her left ICA. She was started on Plavix in addition to her chronic atorvastatin. She has no history of CVA in the past. She denies any palpitations, difficulty speaking or swallowing, facial droop, sudden onset confusion, difficulty moving her arms or legs. Patient denies headache, fever, chest pain, shortness of breath, Sarkis pain, nausea, vomiting, rest pain, claudication, nonhealing wounds or ulcers, other complaints. Review of systems: Total 14 systems were reviewed and are negative aside from what is related in her HPI. Imaging: CTA of her neck demonstrated a left ICA stenosis of over 80%. Current Home Meds: (Last Updated 04/16 11:01) amLODIPine (amLODIPine 5 mg oral tablet) 5 mg PO Daily aspirin (aspirin 81 mg oral delayed release tablet) 81 mg PO Daily atorvastatin (atorvastatin 40 mg oral tablet) 40 mg PO Daily TAKE 1 TABLET BY MOUTH EVERY DAY bimatoprost ophthalmic (Lumigan 0.01% ophthalmic solution) brimonidine-timolol ophthalmic (Combigan 0.2%-0.5% ophthalmic solution) 1 drop both eyes Daily carvedilol (carvedilol 3.125 mg oral tablet) TAKE 1 TABLET BY MOUTH TWO TIMES DAILY cholecalciferol (Vitamin D3 5000 intl units oral capsule) 1 cap PO Daily clobetasol topical (clobetasol 0.05% topical ointment) APPLY A THIN FILM TO VULVA TWO TIMES DAILY FOR 14 DAYS clopidogrel (clopidogrel 75 mg oral tablet) 75 mg PO Daily cyanocobalamin (Vitamin B12) docusate (Colace 100 mg oral capsule) 100 mg PO Daily fluticasone nasal (fluticasone 50 mcg/inh nasal spray) USE 1 SPRAY IN EACH NOSTRIL DAILY losartan (losartan 25 mg oral tablet) 25 mg PO Daily multivitamin with minerals (PreserVision AREDS) omeprazole (omeprazole 40 mg oral delayed release capsule) TAKE 1 CAPSULE DAILY unlisted medication (Tumeric) 1 cap PO Daily Allergies and Sensitivities: lisinopril(cough) Augmentin(abdominal pain) Allergy Not found in Search(Nausea) sulfa drugs(Itching) sulfa drugs(Rash) Past Medical History: Problems: Symptomatic stenosis of left carotid artery Hypertension Essential tremor Acute upper respiratory infection Blackhead Milia Thumb pain History of basal cell carcinoma (BCC) Seborrheic keratoses Labial melanotic macule Gingival hypertrophy Actinic keratoses Female stress incontinence Chronic rhinitis Meade's cyst of knee Osteoarthritis, generalized GERD (gastroesophageal reflux disease) Lichen sclerosus Epidermal cyst Family history of melanoma BCC (basal cell carcinoma) Skin cyst Skin lesion SK (seborrheic keratosis) Knee pain PERSONAL HISTORY OF OTHER MALIGNANT NEOPLASM OF SKIN FAMILY HISTORY OF OTHER SPECIFIED MALIGNANT NEOPLASM Elevated cholesterol Seasonal allergies Reflux Surgical history: Positive for tonsillectomy, cholecystectomy, appendectomy, breast biopsy Family history: Positive for cancer, and stroke in her mother. Social history: Patient has a past history of tobacco use, having smoked 1 pack a day for 40 years and quit in the year 1999. She has 2-3 alcoholic beverages per week. OBJECTIVE Vitals: Last Updated 04/16/23 10:29 Date Temp BP Location Pulse RR SpO2 Pain 04/16/23 0 04/16/23 130/62 Right Arm 04/16/23 134/70 Left Arm 95 98 Vital Signs are the last 3 documented. No Orthostatic Data Available Height and Weight: Last Updated 04/15/23 10:48 Date BMI Wt(kg) Wt(lb) Method Ht(cm) (ft-in) Method 04/15/23 32.54 80.2 176 Standing Scale 157.0 5-2 Standing 02/21/23 79 174 Standing Scale 05/17/23 81.8 180 Standing Scale Heights and Weights are the last 3 documented. Physical Exam Constitutional: In general patient is an overweight but healthy-appearing well- nourished well-developed elderly female in no distress. She is alert and oriented without any focal deficits. Her head is normocephalic and atraumatic. Her carotids are nontender to bruit. Her heart is regular, her lungs are decreased but clear. Her abdomen is soft nontender with normoactive bowel sounds in all 4 quadrants. Brachial and radial pulses are +3. Femoral pulses are +3. Lower extremity distal pulses are +2. She has brisk capillary fill and no sign of distal ischemia. There is no edema. ASSESSMENT: _ PLAN: _ 1 ) _symptomatic left ICA stenosis Patient symptoms are consistent with a left hemispheric TIA in the form of amaurosis. Her CTA demonstrates a severe stenosis of her left ICA, which is a likely source of embolism. Patient was also seen by Dr. Jones today. He recommends the patient consider undergoing surgical intervention. The options of carotid endarterectomy versus transfemoral stenting versus transcarotid artery revascularization procedure were discussed at length with the patient. She elects to proceed with TCAR. In addition to her Plavix and atorvastatin, we have added aspirin. She will need to remain on all 3 medications for minimum of 1 year postoperatively. She is aware of this and agreeable. We would like to schedule her procedure next week due to her being symptomatic. Procedure risks benefits and alternatives were discussed with the patient by Dr. Jones. Patient expresses understanding and agreement to proceed. She was advised to call with any other questions. Thank you for letting us participate in the care of this patient. Signature Line Electronic Signature on File CC: MICAELA Guadalpue [address] [address] CC: MICAELA Lira [address] [facility] [address] [facility] [id number] Electronically Reviewed/Signed by: Svetlana Smith PA-C Author Signature Dt/Tm:04/16/2023 12:23 PM [facility] [address] [place], [place]. [id number] LM Result Type: HVI Outpt Note Date of Service: April 16, 2023 12:13 EDT Authorization Status: Final Author or Import Date: GABRIELLE SmithRandeen on April 16, 2023 12:23 EDT Verified By: GABRIELLE SmithRandeen on April 16, 2023 12:23 EDT Encounter info: [id number], PATIENCE [facility]BLE, Clinic, 04/16/2023 - 04/16/2023 Admission Exam Per Admitting Provider Constitutional: In general patient is an overweight but healthy-appearing well- nourished well-developed elderly female in no distress. She is alert and oriented without any focal deficits. Her head is normocephalic and atraumatic. Her carotids are nontender to bruit. Her heart is regular, her lungs are decreased but clear. Her abdomen is soft nontender with normoactive bowel sounds in all 4 quadrants. Brachial and radial pulses are +3. Femoral pulses are +3. Lower extremity distal pulses are +2. She has brisk capillary fill and no sign of distal ischemia. There is no edema. Principal Diagnosis 1. s/p L TCAR 2. Symptomatic L ICA stenosis Discharge Exam Constitutional WD/WN, vitals as above cooperative; not in distress Neck trachea midline Respiratory normal respiratory effort, lungs clear to auscultation Auscultation: + diminished lung sounds Cardiovascular Rate/Rhythm: regular rate and regular rhythm Vessels: femoral pulses present, posterior tibial pulses present, dorsalis pedis pulses present and radial pulses present Extremities: normal capillary refill Gastrointestinal (Abdomen) Inspection/Auscultation: abdomen normal to inspection and normal bowel sounds Percussion/Palpation: abdomen soft; abdomen nontender Musculoskeletal no cyanosis or clubbing, extremities motor strength 5/5 Skin no rashes, warm and dry + incision (L supraclavicular C/D/I, local ecchymosis/tenderness/mild swelling) Neurologic moves all extremities and awake; no focal motor deficits and not confused Psychiatric A+Ox3, euthymic affect Discharge Data Allergies Allergy/AdvReac Type Severity Reaction Status Date / Time Sulfa (Sulfonamide Allergy Intermediate RASH Verified 04/17/23 08:16 Antibiotics) melon AdvReac Mild Nausea Verified 04/21/23 13:27 cantaloupe AdvReac Nausea Verified 04/21/23 13:26 Cantaloupe Allergy Mild nauseated Uncoded 04/21/23 13:27 Consultations 04/21/23 12:18 Consult Sorting Machine Operator Routine Procedures Performed Operation Date: 04/21/23 08:00 Actual Procedures p Left Transcarotid Artery Revascularization, Ultrasound localization of femoral Artery(Left) - Twan Jones MD Ordered Studies 04/21/23 07:13 EV angio carotid cerv LT Routine US EV guide vascular access Routine Hospital Course (1) Internal carotid artery stent present: Pt now POD #1 after uncomplicated L TCAR. Doing well post op. Did have some mild hypotension earlier this morning, but this is resolved. Discussed with Dr Jones, eusebia d/c home today. Total Time Total Time Spent Total Time Spent (In Minutes): 0 Discharge Plan Discharge Items Patient Disposition: Home - Self-Care Reason For Visit: Left Internal Carotid Artery Stenosis Discharge Diagnosis: 1. s/p L TCAR 2. LICAS Activity: Per Instructions section Non-emergency contact: Primary Care Provider and Surgeon Call non-emergency contact if: you have any medication questions, your symptoms worsen, your pain is not controlled, your pain is concerning for you, you have a fever, your wound has increased redness and your wound has increased drainage Follow-up/Referrals: Starr Salazar CRNP [Primary Care Provider] - 05/09/23 2:05 pm (Keep appointment that is already scheduled on 05/09/23 @ 2:05pm.) Twan Jones MD [Physician] - 05/08/23 1:15 pm (Follow up scheduled on 05/08/23 @ 1:15pm ) Diet: Heart Healthy Addtl Attending Provider Instructions: SPECIAL CARE INSTRUCTIONS: Medications: * Continue to take Aspirin, Clopidogrel, and Atorvastatin as directed. DO NOT STOP THESE MEDICATIONS WITHOUT SPEAKING TO DR JONES'S OFFICE. Incision Care: * You may shower, but do not rub incision. You may let the warm soapy water run over it. Be sure to dry the incision well after bathing. * Do not shave directly over the incision until it is healed. * DO NOT IMMERSE THE INCISION IN A TUB/POOL/etc. UNTIL HEALED. Restrictions: * Do not drive for at least one week or if you are still taking any narcotic pain medication. * Do not lift anything heavier than a gallon of milk for one week after going home. Possible Complications: * Numbness - It is normal to have some numbness around the incision. Numbness can extend beyond the incision to areas of the neck, ear and face. The numbness is due to bruising of nerves during the surgery and will gradually improve over a period of months. * Hoarseness/Difficulty Speaking and Swallowing - The bruising of nerves in the neck can also cause a hoarse voice, difficulty speaking or swallowing. This may improve over time, HOWEVER, if it continues for more than a few days please contact our office ([phone]). * Excessive Swelling - There will be some swelling immediately after surgery which usually resolves within one week. If you notice that the swelling is getting worse, notify your surgeon ([phone]). * Drainage/Bleeding - If there is any drainage or bleeding, it should be a very small amount (less than a teaspoon per day). If you have excessive bleeding or drainage from the incision, call your surgeon ([phone]) right away. ACTIVATION OF EMERGENCY MEDICAL SYSTEM: Call 911, immediately, if you experience any of the following: Warning Signs and Symptoms of Stroke: * Sudden numbness or weakness of the face, arm or leg, especially on one side of the body * Sudden confusion, trouble speaking or understanding * Sudden trouble seeing in one or both eyes * Sudden trouble walking, dizziness, loss of balance or coordination * Sudden severe headache with no cause Do not delay calling 911 if you experience any warning signs or symptoms of a stroke. Delay in seeking medical attention may affect what treatments can be given to you. Risk Factors for Stroke: You can reduce your chances of stroke by working with your medical provider to adopt a healthy lifestyle. Some specific ways to lower your chance of stroke are: * If you are a smoker, now is the time to stop smoking cigarettes * If you are diabetic, improve the control of your blood sugars * Avoid excessive amounts of alcohol * Control high blood pressure * Lose weight if you are overweight * Be sure to lead an active lifestyle * Eat a healthy diet low in salt, cholesterol and fat You should know about other risk factors for stroke that you are unable to control. These include: * Age 55 years or older * Male gender * Certain racial groups: , or / * Family History of Stroke, Mini stroke or Heart Attack * Sickle Cell Disease You will be receiving a call from the Vascular Surgery Nurse after you are discharged. FOLLOW UP VISIT: It is important for you to keep your follow up appointments with your medical provider. Keep any scheduled doctor appointments. Pending Studies at Discharge: No Stand-Alone Forms: [facility], Smoking Cessation Medications and DC Order Prescriptions: New oxycodone-acetaminophen [Percocet] 5-325 mg Tablet 1 - 2 tab PO Q6H PRN (Reason: pain) Qty: 20 0RF Continued Lumigan 0.01 % drops 1 drp ophthalmic (eye) DAILY brimonidine-timolol [Combigan] 0.2-0.5 % drops 1 drp ophthalmic (eye) DIRECTED Rx Instructions: PER PT "NOT EVERY DAY". vitamin B complex Tablet 1 tab PO QAM docusate sodium [Colace] 100 mg capsule 100 mg PO HS PRN (Reason: Constipation) carvedilol 3.125 mg tablet 3.125 mg PO BID cholecalciferol (vitamin D3) [Vitamin D3] 125 mcg (5,000 unit) Tablet 125 mcg PO QAM fluticasone propionate 50 mcg/actuation spray,suspension 1 spray Intranasal QAM PRN (Reason: Congestion) omeprazole 40 mg capsule,delayed release(DR/EC) 40 mg PO QAM losartan 25 mg tablet 25 mg PO HS coenzyme Q10 [CoQ-10] 100 mg Capsule 100 mg PO QAM turmeric root extract 500 mg Tablet 1,000 mg PO QAM amlodipine 2.5 mg tablet 5 mg PO HS 30 Days Qty: 60 0RF atorvastatin 40 mg tablet 40 mg PO HS clopidogrel 75 mg tablet 75 mg PO QAM aspirin 81 mg Tablet,Delayed Release (Dr/Ec) 81 mg PO QAM Discharge Orders: Discharge Order (Routine); Ordered 04/22/23 Ordered By: Svetlana Smith Admission Data Admit Date/Time: 04/21/23 07:46 Attending Provider: Twan Jones Admit Provider: Twan Jones Primary Care Provider: Starr Salazar Other Providers: Hans Gonzales ; Justice Wu ; Mason Gonzalez ; Tommy Pierre ; Jose Weinberg ; Go Lakhani ; Maribell Chavez ; Russ Alex ; Kaylie Thorpe ; Katarina Corley ; Deng Curry Other Interventions: Discharge Summary Assessment (RN) Last Done: 04/22/23 13:00
[2023-04-23] MEDS ORDERED: TIMOLOL MALEATE 0.5% OP SOLN 5 ML BTL OPB SCH (09:00)
[2023-04-23] MEDS ORDERED: BRIMONIDINE TARTRATE 0.2% 5ML OPB SCH (09:00)
== END 2023-04-22 14:03 | disposition home or self-care (01) | DRG 36 ==
LOC: ASU 05:59 → 1E 07:46
PROC: EV.TCAR (2023-04-21 08:00)

== ENCOUNTER 2024-04-09 09:50 | Observation (INO) ==
--- NOTE | 2024-02-25 11:13 | PAT Medication Instructions ---
Medication Instructions Date of Service February 25, 2024 Home Medications Medication Instructions Recorded amlodipine 2.5 mg tablet 5 mg (2 x 2.5 mg) PO HS 30 days 04/10/23 #60 tabs vitamin B complex 1 tab PO QAM fluticasone propionate 50 mcg/actuation nasal spray,suspension 1 spray intranasal QAM PRN carvedilol 3.125 mg tablet 3.125 mg PO BID cholecalciferol (vitamin D3) 125 mcg (5,000 unit) tablet (Vitamin D3) 125 mcg PO QAM bimatoprost 0.01 % eye drops (Lumigan) 1 drp ophthalmic (eye) DAILY docusate sodium 100 mg capsule (Colace) 100 mg PO HS PRN amlodipine 2.5 mg tablet 5 mg (2 x 2.5 mg) PO HS coenzyme Q10 100 mg capsule (CoQ-10) 100 mg PO QAM losartan 25 mg tablet 50 mg PO HS omeprazole 40 mg capsule,delayed release 40 mg PO QAM turmeric root extract 500 mg tablet 1,000 mg PO QAM aspirin 81 mg tablet,delayed release 81 mg PO QAM atorvastatin 40 mg tablet 40 mg PO HS clopidogrel 75 mg tablet 75 mg PO QAM aspirin,buffered(calcium tqih-eubmhcahg-ouxwpbfv hydrx) 325 mg tablet 650 tab PO BID PRN melatonin 3 mg tablet 3 mg PO HS PRN vitamins A,C,J-rpro-fcaycc 2,148 mcg-113 mg-45 mg-17.4 mg tablet (PreserVision AREDS) 2 tab PO BID Continue as directed fluticasone propionate 50 mcg/actuation nasal spray,suspension 1 spray intranasal QAM PRN(if needed) bimatoprost 0.01 % eye drops (Lumigan) 1 drp ophthalmic (eye) DAILY ASK your prescriber and surgeon aspirin 81 mg tablet,delayed release 81 mg PO QAM aspirin,buffered(calcium tthf-wgqmrxpca-prulijug hydrx) 325 mg tablet 650 tab PO BID PRN clopidogrel 75 mg tablet 75 mg PO QAM(in order for spinal or epidural anesthesia, clopidogrel needs to be stopped 7 days before surgery. Please check if okay with doctor that prescribes this to you) STOP taking 2 weeks before surgery (or as soon as possible if surgery is within 2 weeks) coenzyme Q10 100 mg capsule (CoQ-10) 100 mg PO QAM turmeric root extract 500 mg tablet 1,000 mg PO QAM vitamins A,C,P-pger-kyjgug 2,148 mcg-113 mg-45 mg-17.4 mg tablet (PreserVision AREDS) 2 tab PO BID DO NOT take the morning of surgery vitamin B complex 1 tab PO QAM cholecalciferol (vitamin D3) 125 mcg (5,000 unit) tablet (Vitamin D3) 125 mcg PO QAM Take morning of surgery With a small sip of water, OTHERWISE NOTHING TO EAT OR DRINK AFTER MIDNIGHT: carvedilol 3.125 mg tablet 3.125 mg PO BID omeprazole 40 mg capsule,delayed release 40 mg PO QAM Take evening before surgery carvedilol 3.125 mg tablet 3.125 mg PO BID docusate sodium 100 mg capsule (Colace) 100 mg PO HS PRN(if needed) amlodipine 2.5 mg tablet 5 mg (2 x 2.5 mg) PO HS losartan 25 mg tablet 50 mg PO HS atorvastatin 40 mg tablet 40 mg PO HS melatonin 3 mg tablet 3 mg PO HS PRN(if needed) Other Notes If you have any questions please call us at [phone] or [phone] or [phone] or [phone]
--- NOTE | 2024-03-02 10:48 | Anesthesiology Consultation ---
Date of Service March 02, 2024 Assessment & Plan (1) Encounter for pre-operative examination: - Infectious disease screening: Per assessment on 03/02/24: No known recent infectious disease contacts or current infectious disease symptoms. - Outpatient joint assessment: Pt currently scheduled for inpatient pathway. If surgeon requests review for outpatient joint pathway, patient is not recommended candidate for outpatient joint program from anesthesia standpoint based on available information. - Left TCAR (04/21/23): Grade 2 view, MAC#3, ETT 7.0 at [facility] - ASA/plavix instructions: patient made aware that for neuraxial anesthesia, Plavix needs to be held 7 days prior to surgery- okay to hold per vascular. - Vascular visit (01/12/24): "Her carotid ultrasound performed prior to today's appointment demonstrates a widely patent left carotid stent without evidence of restenosis, less than 50% stenosis of the right ICA.. Patient is overall doing well since being seen here 6 months ago. She is now about 8 months status post TCAR. She has been continuing to take her aspirin Plavix and statin medications as directed. We would like her to return here in 6 more months for reevaluation with a new carotid ultrasound prior to that office visit. She would like to schedule her total knee arthroplasty for sometime in April if possible, and she was reassured that stopping her Plavix for that procedure should be okay at that point, as long as she restarts it postprocedure." - Cardiology visit (12/23/23): "Her ankles have been a little swollen since coming back from a recent trip to [place] but is getting better.. Ms. Garrison's blood pressure was a little elevated at home over the last few weeks but is controlled today in the office. She will send me a list of her blood pressures in a couple of weeks and we can decide if she needs adjustments to her antihypertensive regimen.. She is planning on knee surgery in April. She is about a year out from her stress echo which did not show ischemia. Unless she has a change in symptoms ie chest pain, sob or significant edema, she will not need further cardiac testing prior to her surgery and would be a moderate risk for cardiac complication." - PCP visit (02/13/24): "Stopped her Lasix, she was not feeling well on it. Making her too dizzy and queasy.. Taking her BP at home. She restarted her amlodipine, though she was taken off it D/T leg swelling which had resolved her swelling. No CP.. Has been getting SOB and PHAN for some time, she notes Lasix was not helping for this. Having knee pain which she reports seeing Dr. Hong and surgery on 04/09/24.. BP 120/82.. Hypertension.. Problem is chronic- clinically stable though not at goal.. improved, though home readings are still elevated.. discussed possibility of increasing losartan or amlodipine.. That is weird though given Hx of swelling would hesitate to adjust amlodipine dosing. Best for her to reach out to cardiology who monitors her BP. Pt agreeable. If she is unable to see them then We will let us know for dose adjustment. Cannot use HCTZ D/T allergies.. Knee pain.. Plans for potential surgery in April." - Patient seen at [facility] 03/02/24. She states that since recent PCP visit, she spoke with cardiology office via phone and was told to not adjust BP meds at this time based on recent readings and to continue to monitor. Patient tells me that her home readings have been in the 110s-140s/70s typically. BP at PAT visit today 146/83. Euvolemic and no LE edema at visit. PHAN stable from most recent cardiology visit 12/2023- patient remains at baseline from last visit. Chart Review Chart Review: Acceptable Risk for Surgery (pending evaluation DOS) and Patient seen in Pre Admission Testing Teaching & Discussion Pre-Anesthesia Teaching/Discussion Notes: Instructed NPO after midnight before surgery,except medications with 15 cc of water. Medication instructions provided according to the [facility] guidelines. History Surgery Operation Date: 04/09/24 08:00 Proposed Procedures p Right Total Knee Arthroplasty - Justice Hong DO Height/Weight Height: 5 ft 1 in Weight: 79.379 kg Allergies Allergy/AdvReac Type Severity Reaction Status Date / Time Sulfa (Sulfonamide Allergy Intermediate Rash Verified 02/26/24 15:31 Antibiotics) melon AdvReac Mild Nausea Verified 02/19/24 13:07 lisinopril AdvReac Unknown Cough Verified 02/19/24 13:07 cantaloupe AdvReac Nausea Verified 02/19/24 13:07 Medications Home Medications Medication Instructions Recorded Confirmed Last Taken vitamin B complex 1 tab PO QAM 08/29/18 02/19/24 04/20/23 08:00 fluticasone propionate 50 1 spray intranasal QAM PRN 10/18/22 02/19/24 04/21/23 05:30 mcg/actuation nasal Congestion spray,suspension carvedilol 3.125 mg tablet 3.125 mg PO BID 11/12/22 02/19/24 04/21/23 05:30 cholecalciferol (vitamin D3) 125 125 mcg PO QAM 11/12/22 02/19/24 04/20/23 mcg (5,000 unit) tablet (Vitamin D3) bimatoprost 0.01 % eye drops 1 drp ophthalmic (eye) DAILY 12/25/22 02/19/24 04/19/23 (Lumigan) docusate sodium 100 mg capsule 100 mg PO HS PRN Constipation 12/25/22 02/19/24 Unknown (Colace) coenzyme Q10 100 mg capsule 100 mg PO QAM 04/10/23 02/19/24 04/20/23 (CoQ-10) losartan 25 mg tablet 50 mg PO DAILY 04/10/23 03/02/24 04/21/23 05:30 omeprazole 40 mg capsule,delayed 40 mg PO QAM 04/10/23 02/19/24 04/20/23 08:00 release turmeric root extract 500 mg tablet 1,000 mg PO QAM 04/10/23 02/19/24 04/20/23 08:00 aspirin 81 mg tablet,delayed 81 mg PO QAM 04/17/23 02/19/24 04/21/23 05:30 release atorvastatin 40 mg tablet 40 mg PO HS 04/17/23 02/19/24 04/21/23 05:30 clopidogrel 75 mg tablet 75 mg PO QAM 04/17/23 02/19/24 04/21/23 05:30 melatonin 3 mg tablet 3 mg PO HS PRN Sleep 02/18/24 02/19/24 Unknown vitamins A,C,Q-qlbm-fvefwa 2,148 2 tab PO BID 02/18/24 02/19/24 Unknown mcg-113 mg-45 mg-17.4 mg tablet (PreserVision AREDS) amlodipine 2.5 mg tablet 5 mg PO DAILY 06/25/24 06/25/24 Unknown diclofenac sodium 1 % topical gel topical DAILY PRN Pain 03/02/24 Unknown Past Medical History Medical History Bifascicular block Dating back to at least 10/17/22 ECG, Echo 10/24/22 Degenerative arthritis 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) GERD (gastroesophageal reflux disease) History of colon polyps Per records History of COVID-19 03/2021, symptoms resolved History of polymyalgia rheumatica HTN (hypertension) Hyperlipidemia Internal carotid artery stent present (04/2023) Left TCAR Sleep apnea "Mild" No device TIA (transient ischemic attack) (04/2023) 04/2023 > Left TCAR 04/21/23 Tremor of both hands "Mild" Exercise / Class Metabolic Activity III < 4 Walking/Shop/Light housework (one FS: No CP, stable SOB) Past Family History Family History Mother , Age 60 Stroke Sister Cancer of kidney Pulmonary embolism Father , Lived to be 102; Pacemaker Brother Coronary heart disease S/P CABG x 5 Skin cancer (melanoma) Other Family history non-contributory No family history of adverse response to anesthesia Denies family history of Ovarian cancer Breast cancer Colorectal cancer Past Surgical History Surgical History H/O right breast biopsy (11/05/22) Right Breast Biopsy with Wire Localization, LMA#4 History of appendectomy History of benign breast biopsy History of bilateral cataract extraction History of cholecystectomy History of colonoscopy with polypectomy History of esophagogastroduodenoscopy (EGD) History of hand surgery left hand History of tonsillectomy History of transcarotid artery revascularization (TCAR) (04/21/23) Left TCAR: Grade 2 view, MAC#3, ETT 7.0 at [facility] History of wisdom tooth extraction Nausea and vomiting after administration of anesthetic agent S/P lumpectomy, right breast Re-excision of margins 11/18/22 Past Anesthesia History No Hx of Anesthesia Complications and No Family Hx of Anesthesia Complications History of PONV History of PONV (with Remote surgeries) and Hx of Motion Sickness (Remote) Social History Smoking Status: Former smoker tobacco type: cigarettes Do You Dip or Chew Tobacco: No Smoking End Date: Quit 25 years ago Hx Alcohol Use: Yes Alcohol type: wine alcohol intake frequency: a few times a week Hx Substance Use: No substance use type: does not use Review of Systems Patient denies chest pain, shortness of breath, dyspnea on exertion, fever, chills, cough, wheezing. Physical Exam Vital Signs BP 146/83 P 86 TEMP 97.9 SP02 98%RA RESP 16 Physical Full cervical extension range of motion. Full TMJ range of motion. TMD 3 finger breaths Mallampati Score 1 Dentition: intact, + several caps Lungs: clear throughout to auscultation Cardiac: regular rate and rhythm, I/ systolic murmur Spine: normal Carotid arteries: negative bruit Extremities: no LE edema Lab Results Anesthesia Preop Results Results Anesthesia Widget: WBC 7.95 K/ul (4.8-10.8) 03/02/24 Hgb 12.6 g/dl (12.0-16.0) 03/02/24 Hct 38.1 % (37.0-47.0) 03/02/24 Plt 239 K/uL (130-400) 03/02/24 Na 138 mmol/L (136-145) 03/02/24 K 4.5 mmol/L (3.5-5.1) 03/02/24 Cl 102 mmol/L (98-107) 03/02/24 CO2 29 mmol/L (21-32) 03/02/24 BUN 17 mg/dl (6-23) 03/02/24 Creat 0.74 mg/dl (0.6-1.2) 03/02/24 Glucose Level 99 mg/dl (70-99(Fasting)) 03/02/24 PT 10.3 Seconds (9.0-12.0) 03/02/24 PTT 24 Seconds (21-31) 03/02/24 INR 0.9 (0.9-1.1) 03/02/24 Blood Type A Negative 03/02/24 Antibody Screen NEGATIVE 03/02/24 Testing Electrocardiogram Date: 09/03/23 Normal sinus rhythm at 91 bpm. Minimal voltage criteria for LVH, may be normal variant. RBBB. LAFB. *Bifascicular block* No significant change compared to 04/10/2023. Bifascicular block dating back to at least 10/17/2022 ECG scanned into chart. Echo performed 10/24/2022. Chest X-Ray Date: 04/10/23 No acute cardiopulmonary findings Echocardiogram Date: 10/24/22 EF 60% No regional wall motion abnormalities Grade I diastolic dysfunction Mild mitral regurgitation Mild tricuspid regurgitation Stress Test Date: 10/30/22 Negative exercise stress echo and EKG for ischemia at 105% MPHR. While above average exercise tolerance for age and gender. 6 METS. LVEF 60%. Mild cLVH. Other Testing Brain MRI Date: 04/10/23 No acute intracranial abnormality. Head CTA Date: 04/10/23 No central vessel occlusion. No intracranial aneurysm. Head CT Date: 04/10/23 No acute intracranial abnormality identified. Carotid doppler Date: 01/12/24 No hemodynamically significant R ICA stenosis. Patent left carotid bulb/PICA stent with no evidence of restenosis. No hemodynamically significant stenosis in the bilateral external arteries. Normal, antegrade flow in the bilateral vertebral arteries.
--- NOTE | 2024-04-08 11:45 | History & Physical Report ---
Date of Service April 08, 2024 Assessment & Plan (1) Right knee DJD: We will proceed with a right total knee arthroplasty. Postoperatively she will be started on aspirin and Plavix for DVT prophylaxis and kept overnight in the hospital for postop medical management. She plans to use [facility] for therapy upon discharge. History of Present Illness Chief Complaint: Osteoarthritis of the right knee. Primary Care Provider: MICAELA Cordoba Myriam is a pleasant 83-year-old female who has been dealing with severe lateral compartmental arthritis of her right knee. She had a carotid stent placed a little over a year ago. She had to be on the Plavix for a year. It is now safe for her to come off her Plavix. After failing conservative treatment, she has elected to proceed with a right total knee arthroplasty. Allergies Allergy/AdvReac Type Severity Reaction Status Date / Time Sulfa (Sulfonamide Allergy Intermediate Rash Verified 02/26/24 15:31 Antibiotics) melon AdvReac Mild Nausea Verified 02/19/24 13:07 lisinopril AdvReac Unknown Cough Verified 02/19/24 13:07 cantaloupe AdvReac Nausea Verified 02/19/24 13:07 Home Medications Medication Instructions Recorded Confirmed Type vitamin B complex 1 tab PO QAM 08/29/18 02/19/24 History fluticasone propionate 50 1 spray intranasal QAM PRN 10/18/22 02/19/24 History mcg/actuation nasal Congestion spray,suspension carvedilol 3.125 mg tablet 3.125 mg PO BID 11/12/22 02/19/24 History cholecalciferol (vitamin D3) 125 125 mcg PO QAM 11/12/22 02/19/24 History mcg (5,000 unit) tablet (Vitamin D3) bimatoprost 0.01 % eye drops 1 drp ophthalmic (eye) DAILY 12/25/22 02/19/24 History (Lumigan) docusate sodium 100 mg capsule 100 mg PO HS PRN Constipation 12/25/22 02/19/24 History (Colace) coenzyme Q10 100 mg capsule 100 mg PO QAM 04/10/23 02/19/24 History (CoQ-10) losartan 25 mg tablet 50 mg PO DAILY 04/10/23 03/02/24 History omeprazole 40 mg capsule,delayed 40 mg PO QAM 04/10/23 02/19/24 History release turmeric root extract 500 mg tablet 1,000 mg PO QAM 04/10/23 02/19/24 History aspirin 81 mg tablet,delayed 81 mg PO QAM 04/17/23 02/19/24 History release atorvastatin 40 mg tablet 40 mg PO HS 04/17/23 02/19/24 History clopidogrel 75 mg tablet 75 mg PO QAM 04/17/23 02/19/24 History melatonin 3 mg tablet 3 mg PO HS PRN Sleep 02/18/24 02/19/24 History vitamins A,C,F-bjrt-ncbnqn 2,148 2 tab PO BID 02/18/24 02/19/24 History mcg-113 mg-45 mg-17.4 mg tablet (PreserVision AREDS) amlodipine 2.5 mg tablet 5 mg PO DAILY 03/02/24 03/02/24 History diclofenac sodium 1 % topical gel topical DAILY PRN Pain 03/02/24 History Past Med/Surg History Problem List Plantar fasciitis Acid reflux Right knee DJD Lichen sclerosus et atrophicus Medical History 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) History of colon polyps Per records Degenerative arthritis Internal carotid artery stent present (04/2023) Left TCAR Tremor of both hands "Mild" HTN (hypertension) TIA (transient ischemic attack) (04/2023) 04/2023 > Left TCAR 04/21/23 Sleep apnea "Mild" No device Bifascicular block Dating back to at least 10/17/22 ECG, Echo 10/24/22 History of COVID-19 03/2021, symptoms resolved GERD (gastroesophageal reflux disease) History of polymyalgia rheumatica Hyperlipidemia Surgical History S/P lumpectomy, right breast Re-excision of margins 11/18/22 History of transcarotid artery revascularization (TCAR) (04/21/23) Left TCAR: Grade 2 view, MAC#3, ETT 7.0 at [facility] H/O right breast biopsy (11/05/22) Right Breast Biopsy with Wire Localization, LMA#4 Nausea and vomiting after administration of anesthetic agent History of benign breast biopsy History of hand surgery left hand History of colonoscopy with polypectomy History of appendectomy History of cholecystectomy History of wisdom tooth extraction History of tonsillectomy History of esophagogastroduodenoscopy (EGD) History of bilateral cataract extraction Family History Mother , Age 60 Stroke Sister Cancer of kidney Pulmonary embolism Father , Lived to be 102; Pacemaker Brother Coronary heart disease S/P CABG x 5 Skin cancer (melanoma) Other Family history non-contributory No family history of adverse response to anesthesia Denies family history of Ovarian cancer Breast cancer Colorectal cancer Social History Smoking Status: Never smoker Tobacco Type: Cigarettes Age Started Using Tobacco: 19; Age Quit Using Tobacco: 60; packs per day: 1; Smoking End Date: Quit 25 years ago; Second Hand Exposure: No; Do You Dip or Chew Tobacco: No; Tobacco Cessation Education Requested by Patient: No Hx Alcohol Use: Yes Alcohol type: wine Alcohol Intake Frequency: 2-3 x/Week Preferred Language: Maltese Communication Ability: Effective Clinical Statistics Manager Required: No Beliefs That Will Affect Care: None marital status: Current Living Situation: Spouse current occupational status: retired Other Information That Helps Us Care for You: No Feels Safe at Home: Yes Safety Concerns: Feels Safe At This Time Assistive Devices: None Review of Systems All systems reviewed & are unremarkable except as noted in HPI & below. Physical Exam On physical examination of the right knee, she has a slight valgus deformity. She has tenderness palpation of the distal lateral femoral condyle and over the lateral joint line.. Constitutional WD/WN, vitals as above Eyes PERRL, conjunctivae normal, anicteric sclerae ENMT external ear and nose normal, oropharynx normal Neck trachea midline, no thyromegaly Respiratory normal respiratory effort Cardiovascular RRR, no murmur, no edema Gastrointestinal (Abdomen) normal bowel sounds, soft, nontender, no hepatosplenomegaly Psychiatric A+Ox3, euthymic affect Results & Data Results & Data Laboratory Results . Diagnostic Findings X-rays of the right knee show advanced osteoarthritis with joint space narrowing, osteophyte formation, and [id number] tubulation. PG Care Time/CCT Total # of Minutes Spent Total Time Spent with Patient: Total time spent is greater than 50% in coordination of care (as documented) at patient's floor/unit and/or counseling patient: Coding Level of Care Code None Diagnoses Right knee DJD M17.11
[~2024-04-09 09:50] MED LIST changes: -ASPCH81X PO; -B-COTAB18 PO; +BUPIVACAINE 0.5 % 5 MG/1 ML PF 10ML VIAL ONE; -CALC-478 PO; -CHOL1TAB42 PO; -FLUT0.15 NAE; -MULT-506 PO; -OMEGCAP2 PO; -PRLSR20 PO; +ROPIVACAINE 0.5% 5 MG/ML 30 ML VIAL ONE; -SIMV20TA2 PO; +[UNRECOGNIZED DRUG - REMARK] SCH
[2024-04-09] MEDS: LR 60ML/HR IV SCH (10:18)
[2024-04-09] MEDS: FAMOTIDINE 20 MG TAB PO SCH (10:59)
[2024-04-09] MEDS: dexAMETHasone**PF** 10 MG/ML VIAL IV SCH (10:59)
[2024-04-09] MEDS: GABAPENTIN 300 MG CAP PO SCH (10:59)
[2024-04-09] MEDS: ACETAMINOPHEN 500 MG TAB PO SCH ×2 (10:59→16:31)
[2024-04-09] MEDS ORDERED: fentaNYL citrate PF 100 MCG/2 ML VIAL ONE (11:06)
[2024-04-09] MEDS ORDERED: MIDAZOLAM HCL 1 MG/ML 2ML VIAL ONE (11:06)
[2024-04-09] MEDS ORDERED: PROPOFOL IV EMULSION 10 MG/ML 20 ML VIAL IV ONE ×2 (11:06→13:16)
--- NOTE | 2024-04-09 11:09 | History & Physical Bridge Note ---
Date of Service April 09, 2024 History & Physical Bridge Note I have examined the patient, reviewed the History & Physical and in the interval since the performance of the History & Physical I have noted the following changes of clinical significance: no changes noted
[2024-04-09] MEDS: LR 500ML BOLUS, THEN 15ML/HR IV SCH (11:16)
[2024-04-09] MEDS ORDERED: fentaNYL citrate PF 100 MCG/2 ML VIAL IV PRN (11:41)
[2024-04-09] MEDS ORDERED: ePHEDrine sulfate 50 MG/ML AMP IV PRN (11:41)
[2024-04-09] MEDS ORDERED: ATROPINE SULFATE 0.1 MG/ML 10ML SYR IV PRN (11:41)
[2024-04-09] MEDS ORDERED: ONDANSETRON INJ 2 MG/ML 2 ML VIAL IV PRN ×2 (11:41→14:46)
[2024-04-09] MEDS: TRANEXAMIC ACID 1,000 MG **IV Pre-op IV SCH (11:50)
[2024-04-09] MEDS: ceFAZolin 2000MG 2,000 MG/15 ML SYR IV SCH ×2 (12:10→21:05)
[2024-04-09] MEDS ORDERED: GLYCOPYRROLATE 0.2 MG/ML VIAL ONE (12:33)
[2024-04-09] MEDS: ORTHO JOINT ANESTHETIC ONE (12:52)
[2024-04-09] MEDS: TRANEXAMIC ACID 1,000 MG **IV Intra-op IV SCH (13:15)
[2024-04-09] MEDS: ROPIV 0.5% 246mg, Ketorolac 30mg, EPINEPHrine 0.5mg in NSS INFIL SCH (13:15)
--- NOTE | 2024-04-09 13:34 | Operative Report ---
PG Post Operative Report Pre & Post Diagnosis Operation Date: 04/09/24 12:00 Pre-Op Diagnosis: Osteoarthrisits Right Knee Post-Op Diagnosis: Osteoarthrisits Right Knee I identified the patient and participated in the time-out.: Yes Procedure Operation Date: 04/09/24 12:00 Actual Procedures p Right Total Knee Arthroplasty(Right) - Justice Hong DO Surgeon Justice Hong DO Geophysics Professor Justice Patel PA-C Estimated Blood Loss 30 Findings Consistent with Post-Op Diagnosis Specimens Right femoral and tibial bone Description of Procedure Implants used: I used a Dexter Persona total knee arthroplasty system with a size 7 narrow femur, D tibia, 28 oval patella, and a size 11 medial congruent polyethylene bearing. All components were cemented in place with Biomet cement. Myriam arrived [facility] for the above procedure. She was seen in the preoperative holding area and the operative extremity was identified and signed. She was given a preoperative antibiotic, TXA, a spinal anesthetic and an adductor nerve block. She was taken back to the operating room and laid on the table in supine position. She was given basic sedation. The operative knee was then prepped and draped in sterile fashion. A timeout was done, and the patient and the operative extremity was properly identified. A midline incision was made directly over the patella. Dissection was taken down to the extensor mechanism. A subvastus arthrotomy was used. The medial retinaculum was released and the fat pad was mostly excised. The knee was flexed and the ACL, PCL, and meniscus were removed. A drill was sent down the center of the femoral canal followed by an intramedullary hui. Off that hui a distal femoral cutting block was placed. 9 mm was resected off the distal femur at 5 of valgus. A posterior referencing AP sizing guide was then placed on the distal femur. The femur measured to be a size 7. 2 drill holes were placed in 3 of external rotation. A 4-in-1 cutting block was then impacted into place. Anterior, posterior, and chamfer cuts were then made. The proximal tibia was then exposed. An external tibial alignment guide was placed. A tibial cut guide was then anchored in place and the proximal tibia was then resected. The posterior aspect of the knee was then opened up and any additional meniscus fragments and osteophytes were removed. The tibia measured to be a size D. The tibial plate was then placed in the appropriate rotation and the tibia was drilled and punched. Trial components were then placed. I used a size 11 medial congruent polyethylene insert. The knee was brought through a full range of motion and felt to be stable. The peg holes for the femoral component were then drilled. The patella was then everted and 9 mm was resected off the posterior aspect of the patella. The patella measured to be a size 28 oval. 3 peg holes were then drilled. A trial patella was placed. The knee was once again brought through a full range of motion and felt to be stable. Trial components were then removed. The surrounding soft tissues were injected with 100 cc of an orthopedic pain control cocktail. All components were then cemented into place with Biomet cement. The final polyethylene insert was then snapped into place. Once cement was dry the tourniquet was deflated. Hemostasis was obtained. A dilute betadyne lavage was then done for 3 minutes. The joint was then irrigated with normal saline solution. The subvastus arthrotomy was then closed with #1 Vicryl suture. The skin was closed with 2-0 Vicryl, 3-0V lock suture, and shabbir. A soft compressive dressing was placed. She was then transferred to a hospital bed and taken to the postanesthesia care unit in stable condition. She tolerated the procedure well. Justice Patel PA-C, was present for the entire procedure. He was critical for patient positioning, prepping, draping, retraction exposure, wound closure and application of sterile dressing. I attest to the content of the Intraoperative Record and any orders documented therein. Any exceptions are noted below.
--- NOTE | 2024-04-09 14:03 | Anesthesiology Progress Note ---
Date of Service April 09, 2024 Anesthesia Post Procedure Vital Signs Vital Signs: Temp Pulse Pulse Resp BP Pulse Ox O2 Del Method 04/09/24 13:55 87 14 124/60 94 Room Air 04/09/24 13:45 88 20 120/57 L 98 Oxymask 04/09/24 13:35 36.5 C 90 20 118/56 L 98 Oxymask 04/09/24 10:41 Room Air 04/09/24 10:41 36.9 C 89 18 181/83 H 97 Room Air O2 Flow Rate 04/09/24 13:55 04/09/24 13:45 9 04/09/24 13:35 9 04/09/24 10:41 04/09/24 10:41 Pain Intensity Right Knee: Pain Intensity: 0 Transfer of Care Handoff Completed per policy Notes Mental Status: alert / awake / arousable and participated in evaluation Patient Amnestic to Procedure: Yes Nausea / Vomiting: adequately controlled Pain: adequately controlled Airway Patency, RR, SpO2: stable & adequate BP & HR: stable & adequate Hydration State: stable & adequate Anesthetic Complications: no major complications apparent and Pt Satisfied with anesthetic care
--- NOTE | 2024-04-09 14:12 | XRay Report ---
RIGHT KNEE 2 VIEWS History: Right total knee arthroplasty. Degenerative arthritis. Postop. FINDINGS: The patient is status post a right total knee arthroplasty. The hardware is intact. No frac ture or dislocation. Skin shabbir are in place. IMPRESSION: Right total knee arthroplasty. No evidence for hardware complication. ACT 112: Negative or not required by law. Electronically signed by: Abdirizak Delatorre M.D. 04/09/2024 2:11 PM
[2024-04-09] MEDS ORDERED: METOCLOPRAMIDE HCL INJ 5 MG/ML 2 ML VIAL IV PRN (14:46)
[2024-04-09] MEDS ORDERED: MELATONIN 3 MG TAB PO PRN (14:46)
[2024-04-09] MEDS ORDERED: HYDROmorphone INJ 0.5 MG/0.5 ML SYR IV PRN (14:46)
[2024-04-09] MEDS ORDERED: NALOXONE HCL 0.4 MG/1 ML VIAL/CARP IV PRN (14:46)
[2024-04-09] MEDS ORDERED: oxyCODONE HCL IR 5 MG TAB (IMMEDIATE RELEASE) PO PRN (14:46)
[2024-04-09] MEDS ORDERED: bisacodyL 10 MG SUPP PR PRN (14:46)
[2024-04-09] MEDS ORDERED: FLUTICASONE PROPIONATE NA SPR 16 GM BTL PRN (14:46)
[2024-04-09] MEDS ORDERED: MAGNESIUM HYDROXIDE SUSP 30 ML UDC PO PRN (14:46)
[2024-04-09] MEDS: SODIUM CHLORIDE 0.9% 1,000 ML IV SCH (15:38)
[2024-04-09] MEDS: KETOROLAC TROMETHAMINE 15 MG/ML VIAL IV SCH (16:32)
[2024-04-09] MEDS: ATORVASTATIN 40 MG TAB PO SCH (21:04)
[2024-04-09] MEDS: SENNA 8.6 MG TAB PO SCH (21:04)
[2024-04-09] MEDS: DOCUSATE SODIUM 100 MG CAP PO SCH (21:05)
[2024-04-09] MEDS: ASPIRIN 81 MG ECTAB PO SCH (21:05)
[2024-04-09] MEDS: carvediloL 3.125 MG TAB PO SCH (21:05)
[2024-04-10] MEDS: CLOPIDOGREL BISULFATE 75 MG TAB PO SCH (08:20)
[2024-04-10] MEDS: LOSARTAN POTASSIUM 50 MG TAB PO SCH (08:21)
[2024-04-10] MEDS: MULTIVITAMIN TAB PO SCH (08:22)
[2024-04-10] MEDS: dexAMETHasone 4 MG TAB PO SCH (08:23)
[2024-04-10] MEDS: amLODIPine BESYLATE 5 MG TAB PO SCH (08:23)
[2024-04-10] MEDS: BIMATOPROST 0.01% OP SOLN 2.5 ML BTL OP SCH (08:24)
--- NOTE | 2024-04-10 08:26 | Orthopedic Progress Note ---
Date of Service April 10, 2024 Assessment & Plan (1) Status post right knee replacement: Overall she is doing very well. She is not having much pain in the right knee. She will be seen by physical therapy today for ambulation and range of motion exercises. She can be discharged home later today. She is on aspirin and Plavix for DVT prophylaxis. She will follow-up with orthopedics in 2 weeks. Amie Miguel was seen and examined at bedside this morning. Overall she is doing very well. She is not having much pain in the right knee. She has been up and ambulating to the bathroom. She has no complaints.. Review of Systems All systems reviewed & are unremarkable except as noted in HPI & below. Physical Exam On physical examination of the right knee, the dressing is clean and dry. Her leg is out full extension. She has active dorsiflexion plantarflexion of her right ankle.. Results & Data Results & Data Laboratory Results . Diagnostic Findings Postoperative x-rays of the right knee show the prosthesis to be in anatomic alignment without any evidence of fracture complication, or loosening.. PG Care Time/CCT Total # of Minutes Spent Total Time Spent with Patient: Total time spent is greater than 50% in coordination of care (as documented) at patient's floor/unit and/or counseling patient: Coding Level of Care Code 35584 Post Operative Follow-Up Diagnoses Status post right knee replacement Z96.651
--- NOTE | 2024-04-10 08:27 | Discharge Summary ---
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 She had a carotid stent placed a little over a year ago. She had to be on the Plavix for a year. It is now safe for her to come off her Plavix. After failing conservative treatment, she has elected to proceed with a right total knee arthroplasty. Admission Exam (Per Admitting) On physical examination of the right knee, she has a slight valgus deformity. She has tenderness palpation of the distal lateral femoral condyle and over the lateral joint line.. Principal Diagnosis Same as "Discharge Diagnosis" noted below under Discharge Instructions. Discharge Exam On physical examination of the right knee, the dressing is clean and dry. Her leg is out full extension. She has active dorsiflexion plantarflexion of her right ankle.. Discharge Data Procedures Performed Operation Date: 04/09/24 12:00 Actual Procedures p Right Total Knee Arthroplasty(Right) - Justice Hong DO Ordered Studies 04/09/24 05:00 US - OR guided needle placemen Routine Hospital Course (1) Status post right knee replacement: April 09, 2024 Myriam arrived at [facility] and underwent a right knee replacement without complication. She had a spinal anesthetic. Postoperatively she was started on aspirin and Plavix for DVT prophylaxis and transferred to the general orthopedic floors. Her hospital course was uneventful. On postop day #1, her vital signs were stable and her pain was well-controlled. She was able to participate well with physical therapy doing ambulation and range of motion exercises. She was then discharged home. She will follow-up orthopedics in 2 weeks. PG Care Time/CCT Total # of Minutes Spent Total Time Spent with Patient: Total time spent is greater than 50% in coordination of care (as documented) at patient's floor/unit and/or counseling patient: Discharge Plan Discharge Items Patient Disposition: Home - Self-Care Reason For Visit: Degenerative Joint Disease Right Knee Discharge Diagnosis: Right knee replacement Activity: Per Instructions section Non-emergency contact: Surgeon Call non-emergency contact if: your wound has increased redness and your wound has increased drainage Follow-up/Referrals: Starr Salazar CRNP [Primary Care Provider] - Diet: Regular Addtl Attending Provider Instructions: Activity and Therapy Recommendations: * If you are using [facility] then therapy will be provided at your home until they feel you have accomplished all of your goals. * If you are using [facility] then Physical Therapy will be provided until they feel you are ready to start Outpatient Physical Therapy. * If you are not using home therapy then Outpatient Physical Therapy should start about 3-5 days from your day of surgery. Therapy will last about 6-10 weeks * It is important not to put a pillow under your knee when you are relaxing or sleeping. It is just as important to make sure you are getting your knee perfectly straight as it is to regain your knee bend. * You were shown a series of exercises in the hospital. Do these exercises three times each day including the exercises you were shown in physical therapy. * Get up and walk several times each day. For the first four weeks, try not to stand or walk for more than one hour at a time. If you do stand or walk for more than one hour, you will not hurt anything, but your leg will likely swell. * As you feel comfortable, you may change from the walker or crutches to a cane and then to independent walking. Medications: * Narcotic You will likely be sent home from the hospital with a prescription for the narcotic pain medication that worked best throughout your stay. * Cefadroxil -take the antibiotic twice a day for 10 days to help prevent infection. * Aspirin - take aspirin 81 mg twice a day for 6 weeks after surgery. You may continue taking your Plavix as previously prescribed. * Other medications may be prescribed for specific circumstances. If you have any questions, please call the office at . * Resume previous home medications unless otherwise instructed TEDs/Elastic Stockings: The white elastic stockings help limit swelling and prevent blood clots from forming in your legs.~ The more you wear them, the more they work. Wear them for six weeks. Dressing Care: The dressing can be changed after physical therapy on postop day #1. Daily dry dressing changes for a few days, especially if the incision is still draining some. If the incision is not draining then you may leave the shabbir open to air. If there is a little bit of drainage or if the shabbir are getting stuck on your clothing then cover the incision with a dry dressing. The shabbir will be removed at your 2 week follow-up appointment. Showering: You may shower 5 days from the day of surgery as long as the incision is no longer draining. You may shower with the shabbir exposed. Let soapy water run over the shabbir and pat them dry. Do not scrub or soak the incision. Things To Watch For: * Drainage from the incision site that occurs more than one week after your surgery. * Increased redness at the incision site. * Fever above 102 degrees Fahrenheit. * Unusual chest pain or shortness of breath. * Call [facility] at with any of the above problems Follow-Up Visit: Follow-up with Dr. Hong's PA (Justice Patel) 2-3 weeks after your day of surgery. He will remove your shabbir and answer any questions. If you have any additional questions or concerns, Dr Hong is usually in the office at the same time and will be available An appointment was probably scheduled when you signed-up for surgery in the office. If you have any questions call Office Instructions: More detailed instructions as well as Frequently Asked Questions were provided in a folder by our office when you signed-up for surgery. Please review these instructions when you get home. If you have any further questions or concerns, please feel free to call the office at [phone] Pending Studies at Discharge: No Stand-Alone Forms: My [facility] Medications and DC Order Prescriptions: New oxycodone 5 mg Tablet 5 mg PO Q4H PRN (Reason: pain) Qty: 30 0RF cefadroxil 500 mg capsule 500 mg PO BID 10 Days Qty: 20 0RF Continued Lumigan 0.01 % drops 1 drp ophthalmic (eye) DAILY vitamin B complex Tablet 1 tab PO QAM docusate sodium [Colace] 100 mg capsule 100 mg PO HS PRN (Reason: Constipation) carvedilol 3.125 mg tablet 3.125 mg PO BID cholecalciferol (vitamin D3) [Vitamin D3] 125 mcg (5,000 unit) Tablet 125 mcg PO QAM fluticasone propionate 50 mcg/actuation spray,suspension 1 spray Intranasal QAM PRN (Reason: Congestion) omeprazole 40 mg capsule,delayed release(DR/EC) 40 mg PO QAM losartan 25 mg tablet 50 mg PO DAILY coenzyme Q10 [CoQ-10] 100 mg Capsule 100 mg PO QAM turmeric root extract 500 mg Tablet 1,000 mg PO QAM atorvastatin 40 mg tablet 40 mg PO HS clopidogrel 75 mg tablet 75 mg PO QAM melatonin 3 mg Tablet 3 mg PO HS PRN (Reason: Sleep) PreserVision AREDS 2,148 mcg-113 mg-45 mg-17.4mg Tablet 2 tab PO BID Rx Instructions: administer with AM and PM meals amlodipine 2.5 mg tablet 5 mg PO DAILY diclofenac sodium [Voltaren] 1 % Gel TOPICAL DAILY PRN (Reason: Pain) Changed aspirin 81 mg Tablet,Delayed Release (Dr/Ec) 81 mg PO BID 42 Days Qty: 0 0RF Discharge Orders: Discharge Order (Routine); Ordered 04/10/24 Ordered By: Justice Hong Admission Data Admit Date/Time: 04/09/24 13:38 Attending Provider: Justice Hong Admit Provider: Justice Hong Primary Care Provider: Starr Salazar
[2024-04-10] MEDS ORDERED: NON-FORMULARY MEDICATION (Coenzyme Q10 [Coq-10] 100 mg Capsule) PO SCH (09:00)
== END 2024-04-10 11:45 | disposition home or self-care (01) ==
LOC: ASU 09:50 → 3E 09:50

== ENCOUNTER 2024-12-22 07:16 | Observation (INO) ==
--- NOTE | 2024-12-22 07:34 | Emergency Department Note ---
Impression & Plan TIA (transient ischemic attack), Dizziness ED Provider Note NAME: NINFA DURAN AGE: 83 SEX: F : 1940 ARRIVES VIA: Walk-In INFORMANT: Patient, ED PROVIDER(S): Rodolfo Hubbard DO CHIEF COMPLAINT: dizzy HPI: Patient is an 83-year-old female with a past medical history of a CVA who presents to the ER for dizziness and lightheadedness. Symptoms started yesterday in the morning. She notes when this occurred she saw some black dots in her visual ruano. This resolved after 5 minutes. She notes that she just feels unbalanced and feels like she is moving and lightheaded. When she lays still it is a little better. Denies any change or loss of vision currently. No chest pain or shortness of breath. No nausea, vomiting, or diarrhea. No dysuria, urgency, or frequency. No focal weakness in the arms or legs. No other exacerbating or remitting factors. ADDITIONAL HISTORY OBTAINED: Per HPI Chronic Medical/Social Conditions Affecting Care: Per HPI PAST MEDICAL HISTORY:See Below PAST SURGICAL HISTORY:See Below FAMILY HISTORY:See Below SOCIAL HISTORY:See Below HOME MEDICATIONS:See Below ALLERGIES:See Below VITALS:See Below PHYSICAL EXAMINATION: GENERAL: Sitting up in bed, alert, well appearing, well nourished, no distress, non-toxic EYE EXAM: normal conjunctiva. PERRL and EOM's intact. OROPHARYNX: no exudate, no erythema, lips, buccal mucosa, and tongue normal and mucous membranes are moist NECK: supple, no nuchal rigidity, no adenopathy, non-tender LUNGS: Clear to auscultation. Normal chest wall mechanics HEART: no murmurs, S1 normal and S2 normal ABDOMEN: abdomen soft, non-tender, normo-active bowel sounds, no masses, no rebound or guarding. UPPER EXTREMITIES: upper extremities are grossly normal. LOWER EXTREMITIES: No pitting edema. NEURO EXAM: Normal sensorium, cranial nerves II-XII intact, normal speech, no weakness of arms, no weakness of legs. No drift. Finger to nose intact. Gross sensation intact. Ambulates without difficulty MEDICAL DECISION MAKING: Patient is an 83-year-old female who presents to the ER with above-stated complaint. IV was established and blood work was obtained. Labs show no significant leukocytosis or anemia. BMP with LFTs bilirubin was unremarkable. Troponin was negative. Lipase normal. CTA of the with her she neurology who evaluated the patient. They recommended admission for complete workup. Discussed case with Dr. Lopez for further evaluation management treatment. Dr. De Leon from telestroke neurology did evaluate the patient. Patient is not a TNK candidate. Consults/Care Managements Discussions: Per [facility] Triage Nursing notes reviewed. Limited review of prior medical records performed Vital Signs: reviewed and remarkable for HTN Differential diagnosis: Differential diagnosis includes etiologies such as benign positional vertigo, dehydration, hypovolemia, anemia, tumor, infection, hypoglycemia, electrolyte abnormalities, cardiac sources, intracerebral event, toxicologic, neurological, as well as others were entertained. ER treatment provided: See below Diagnostics interpreted by me include EKG and cardiac monitoring as listed below: -Cardiac Monitoring: An order was placed for continuous cardiac monitoring. The monitor shows a rate of 90 with sinus rhythm. -ECG: Sinus rhythm rate 92 Normal axis Right bundle codey block QTc 445 -Laboratory studies:Interpreted by me as stated above in MDM and shown below. Imaging studies: Xrays: As interpreted by me: Portable AP upright 1 view of the chest shows no focal infiltrate CTs show: CT angios of the head and neck were negative Procedures:none Critical Care: None Past Med/Surg History Problem List (Updated 12/22/24 @ 13:03 by Rodolfo Hubbard DO) Dizziness (Acute) Mild dehydration HTN (hypertension) TIA (transient ischemic attack) (Acute 04/2023) 04/2023 > Left TCAR 04/21/23 Status post right knee replacement (~04/2024) Plantar fasciitis Acid reflux Right knee DJD Lichen sclerosus et atrophicus Medical History Ductal carcinoma in situ (DCIS) of right breast History of colon polyps Degenerative arthritis Internal carotid artery stent present (04/2023) Tremor of both hands HTN (hypertension) TIA (transient ischemic attack) (04/2023) Sleep apnea Bifascicular block History of COVID-19 GERD (gastroesophageal reflux disease) History of polymyalgia rheumatica Hyperlipidemia Surgical History S/P lumpectomy, right breast History of transcarotid artery revascularization (TCAR) (04/21/23) H/O right breast biopsy (11/05/22) Nausea and vomiting after administration of anesthetic agent History of benign breast biopsy History of hand surgery History of colonoscopy with polypectomy History of appendectomy History of cholecystectomy History of wisdom tooth extraction History of tonsillectomy History of esophagogastroduodenoscopy (EGD) History of bilateral cataract extraction Family History Mother Stroke Sister Cancer of kidney Pulmonary embolism Father Pacemaker Brother Coronary heart disease S/P CABG x 5 Skin cancer (melanoma) Other Family history non-contributory No family history of adverse response to anesthesia Denies family history of Ovarian cancer Breast cancer Colorectal cancer Social History Smoking Status: Former smoker Tobacco Type: Cigarettes Age Started Using Tobacco: 19; Age Quit Using Tobacco: 60; packs per day: 1; Second Hand Exposure: No; Do You Dip or Chew Tobacco: No; Hx Alcohol Use: Yes Alcohol type: wine Alcohol Intake Frequency: 2-3 x/Week Preferred Language: Divehi Communication Ability: Effective Cashier Host/Hostess Required: No Beliefs That Will Affect Care: None marital status: Current Living Situation: Spouse current occupational status: retired Feels Safe at Home: Yes Assistive Devices: Walker Allergies Allergies Allergy/AdvReac Type Severity Reaction Status Date / Time Sulfa (Sulfonamide Allergy Intermediate Rash Verified 12/22/24 08:52 Antibiotics) melon AdvReac Mild Nausea Verified 12/22/24 08:52 lisinopril AdvReac Unknown Cough Verified 12/22/24 08:52 cantaloupe AdvReac Nausea Verified 12/22/24 08:52 Home Meds Home Medications Medication Instructions Recorded Confirmed vitamin B complex 1 tab PO QAM 08/29/18 12/22/24 carvedilol 3.125 mg tablet 3.125 mg PO BID 11/12/22 12/22/24 cholecalciferol (vitamin D3) 125 125 mcg PO QAM 11/12/22 12/22/24 mcg (5,000 unit) tablet (Vitamin D3) bimatoprost 0.01 % eye drops 1 drp ophthalmic (eye) DIRECTED 12/25/22 12/22/24 (Bettie) turmeric root extract 500 mg tablet 1,000 mg PO QAM 04/10/23 12/22/24 atorvastatin 40 mg tablet 40 mg PO HS 04/17/23 12/22/24 clopidogrel 75 mg tablet 75 mg PO QAM 04/17/23 12/22/24 vitamins A,C,R-lpbp-vzftkm 2,148 2 tab PO BID 02/18/24 12/22/24 mcg-113 mg-45 mg-17.4 mg tablet (PreserVision AREDS) Eye Ointment 1 applic OPB DIRECTED 12/22/24 12/22/24 amlodipine 5 mg tablet 5 mg PO DAILY 12/22/24 12/22/24 aspirin 81 mg tablet,delayed 81 mg PO DAILY 12/22/24 12/22/24 release clobetasol 0.05 % shampoo 1 applic topical HS 12/22/24 12/22/24 fluocinonide 0.05 % topical cream 1 applic topical BID PRN Red Spots 12/22/24 12/22/24 ketoconazole 2 % shampoo 1 applic topical 3XWK 12/22/24 12/22/24 losartan 50 mg tablet 50 mg PO DAILY 12/22/24 12/22/24 magnesium 250 mg tablet 250 mg PO DAILY 12/22/24 12/22/24 omega 2-hpg-gsn-fish oil 900 1 cap PO DAILY 12/22/24 12/22/24 mg-1,400 mg capsule,delayed release omeprazole 20 mg capsule,delayed 20 mg PO DAILY 12/22/24 12/22/24 release triamcinolone acetonide 0.1 % 1 applic topical BID PRN Red Rash 12/22/24 12/22/24 topical cream Results & Data (ED) Vital Signs Vital Signs - 24 hr 12/22/24 07:18 12/22/24 07:30 12/22/24 08:00 Temperature 36.8 C Temperature Source Temporal Artery Scan Pulse Rate 90 80 Pulse Rate [Apical] Pulse Rate from SpO2 Sensor 81 Pulse Rhythm Regular Pulse Rhythm [Apical] Pulse Strength Normal Pulse Strength [Apical] Respiratory Rate 20 24 Respiratory Effort / Characteristics Non-Labored Respiratory Depth Normal Respiratory Pattern Regular Blood Pressure 169/70 H 148/50 H Blood Pressure [Right Arm] Blood Pressure Mean 103 82 Blood Pressure Mean [Right Arm] Blood Pressure Position Sitting Blood Pressure Position [Right Arm] Pulse Oximetry 98 99 Oxygen Delivery Method Room Air Room Air Sepsis Recent Fever Within 48 Hours No Sepsis New/Unexplained Change in Mental Status N/A Sepsis Action Taken by Nursing No Action Required 12/22/24 08:17 12/22/24 09:29 12/22/24 10:00 Temperature Temperature Source Pulse Rate 79 94 H Pulse Rate [Apical] Pulse Rate from SpO2 Sensor 94 H Pulse Rhythm Pulse Rhythm [Apical] Pulse Strength Pulse Strength [Apical] Respiratory Rate 21 Respiratory Effort / Characteristics Respiratory Depth Respiratory Pattern Blood Pressure 187/88 H 172/100 H Blood Pressure [Right Arm] Blood Pressure Mean 125 124 Blood Pressure Mean [Right Arm] Blood Pressure Position Blood Pressure Position [Right Arm] Pulse Oximetry 97 Oxygen Delivery Method Room Air Sepsis Recent Fever Within 48 Hours Sepsis New/Unexplained Change in Mental Status Sepsis Action Taken by Nursing 12/22/24 10:30 12/22/24 11:14 12/22/24 12:05 Temperature Temperature Source Pulse Rate 89 Pulse Rate [Apical] 99 H Pulse Rate from SpO2 Sensor Pulse Rhythm Pulse Rhythm [Apical] Regular Pulse Strength Pulse Strength [Apical] Normal Respiratory Rate 20 Respiratory Effort / Characteristics Non-Labored Respiratory Depth Normal Respiratory Pattern Regular Blood Pressure 132/77 Blood Pressure [Right Arm] 134/69 Blood Pressure Mean 86 Blood Pressure Mean [Right Arm] 90 Blood Pressure Position Blood Pressure Position [Right Arm] Lying Pulse Oximetry 98 Oxygen Delivery Method Room Air Sepsis Recent Fever Within 48 Hours Sepsis New/Unexplained Change in Mental Status Sepsis Action Taken by Nursing 12/22/24 12:30 Temperature Temperature Source Pulse Rate Pulse Rate [Apical] 97 H Pulse Rate from SpO2 Sensor Pulse Rhythm Pulse Rhythm [Apical] Pulse Strength Pulse Strength [Apical] Respiratory Rate 18 Respiratory Effort / Characteristics Non-Labored Spontaneous Respiratory Depth Normal Respiratory Pattern Blood Pressure Blood Pressure [Right Arm] 163/72 H Blood Pressure Mean Blood Pressure Mean [Right Arm] 102 Blood Pressure Position Blood Pressure Position [Right Arm] Sitting Pulse Oximetry 97 Oxygen Delivery Method Room Air Sepsis Recent Fever Within 48 Hours Sepsis New/Unexplained Change in Mental Status Sepsis Action Taken by Nursing Laboratory Data 12/22/24 07:30 12/22/24 07:30 Lab Results 12/22/24 Range/Units 07:30 WBC 5.81 (4.8-10.8) K/ul RBC 4.31 (4.20-5.40) M/uL Hgb 13.4 (12.0-16.0) g/dl Hct 39.5 (37.0-47.0) % MCV 91.6 (80.0-100.0) fL MCH 31.1 (25.0-34.0) pg MCHC 33.9 (32.0-36.0) g/dL RDW Std Deviation 41.8 (36.4-46.3) fL RDW Coeff of Izzy 12.5 (11.5-14.5) % Plt Count 246 (130-400) K/uL MPV 8.9 L (9.4-12.4) fL Immature Gran % (Auto) 0.2 % Neut % (Auto) 65.4 % Lymph % (Auto) 22.7 % Bryan % (Auto) 8.8 % Eos % (Auto) 1.9 % Baso % (Auto) 1.0 % Neut # (Auto) 3.80 (1.40-6.50) K/uL Lymph # (Auto) 1.32 (1.20-3.40) K/uL Bryan # (Auto) 0.51 (0.11-0.59) K/uL Eos # (Auto) 0.11 (0.00-0.50) K/uL Baso # (Auto) 0.06 (0.00-0.20) K/uL Immature Gran # (Auto) 0.01 (0.01-0.20) K/uL Sodium 136 (136-145) mmol/L Potassium 4.2 (3.5-5.1) mmol/L Chloride 102 (98-107) mmol/L Carbon Dioxide 30 (21-32) mmol/L Anion Gap 4 (3-11) BUN 18 (6-23) mg/dl Creatinine 0.73 (0.6-1.2) mg/dl Est Cr Clr Drug Dosing 54.0 ml/min eGFR 81.55 BUN/Creatinine Ratio 24.7 H (10-20) Glucose 105 H (70-99(Fasting)) mg/dl Calcium 9.7 (8.6-10.3) mg/dl Total Bilirubin 1.1 H (0.2-1.0) mg/dl AST 20 (13-39) U/L ALT 21 (7-52) U/L Alkaline Phosphatase 76 (34-104) U/L Troponin I High Sens 6.1 (0-14) pg/ml Total Protein 7.1 (6.0-8.3) gm/dl Albumin 4.3 (3.4-5.0) gm/dl Globulin 2.8 (2.5-4.0) gm/dl Albumin/Globulin Ratio 1.5 (0.9-2) Lipase 197 H (11-82) U/L Administered Medications Discontinued Medications Sodium Chloride (Nss) 1,000 mls @ 999 mls/hr IV .Q1H1M ONE Stop: 12/22/24 08:31 Last Infusion: 12/22/24 08:57 Dose: Infused Documented By: Admin: 12/22/24 07:45 Dose: 999 mls/hr Documented By: EKATERINA Ioversol (Optiray 320 125ml) 120 ml IV ONCE ONE Stop: 12/22/24 08:35 Last Admin: 12/22/24 08:34 Dose: 120 ml Documented By: TOMASA Meclizine HCl (Meclizine Hcl 25 Mg Tab) 25 mg PO NOW STA Stop: 12/22/24 07:32 Last Admin: 12/22/24 07:41 Dose: 25 mg Documented By: EKATERINA Imaging Data Radiologist's Impression: Chest X-Ray 12/22/24 07:30 XR chest 1V portable CLINICAL HISTORY: Chest pain, nonspecific COMPARISON STUDY: 05/07/2023 FINDINGS: There is stable mild cardiomegaly without pulmonary vascular congestion. No effusion, consolidation, or pneumothorax. IMPRESSION: No acute findings. ACT 112: Negative or not required by law. Electronically signed by: Deng Valladares M.D. 12/22/2024 8:11 AM Head CTA 12/22/24 07:30 CT angio head wo/w CLINICAL HISTORY: 83 years-old Female with dizzy feels like previous cva. Acute dizziness with stroke like symptoms COMPARISON STUDY: CTA neck of same day TECHNIQUE: Unenhanced axial CT scan of the brain is performed. Subsequently, following the IV administration of cc of Optiray, CT angiogram of the brain was performed from the skull base to the vertex. Images are reviewed in the axial, sagittal, and coronal planes. 3-D MIPS images are created and assessed. IV contrast was administered without complication. All measurements were obtained according to NASCET criteria. A dose lowering technique was utilized adhering to the principles of ALARA. FINDINGS: CT BRAIN: There is no acute intracranial hemorrhage, midline shift, hydrocephalus, intracranial mass, territorial ischemia or abnormal extra-axial collections. No abnormal intra-axial or extra-axial enhancement. Involutional changes with patchy white matter hypodensities suggestive of chronic microvascular ischemic disease. Mastoid air cells and middle ear cavities are clear. No calvarial fracture. Paranasal sinuses are clear. Numerous small cutaneous lesions of the scalp. CT ANGIOGRAM OF THE BRAIN: The imaged bilateral internal carotid arteries are patent. The bilateral anterior and middle cerebral arteries are also patent. origin of the right posterior cerebral artery. There is mild to moderate luminal narrowing noted throughout the posterior cerebral arteries. No aneurysm, dissection, high-grade stenosis or arterial occlusion identified. Dural sinuses appear patent. IMPRESSION: 1. No acute intracranial abnormality. 2. CTA of the head demonstrates no aneurysm, dissection, high-grade stenosis or arterial occlusion. ACT 112: Negative or not required by law. The above report was generated using voice recognition software. It may contain grammatical, syntax or spelling errors. Electronically signed by: Zhang Garibay M.D. 12/22/2024 8:54 AM Neck CTA 12/22/24 07:30 CT angio neck with con CLINICAL HISTORY: dizzy feels like previous cva. COMPARISON STUDY: 04/10/2023 TECHNIQUE: Following the IV administration of 120 of Optiray, CT angiogram of the neck was performed from the aortic arch to the skull base. Images are reviewed in the axial, sagittal, and coronal planes. 3-D MIPS images are created and assessed. IV contrast was administered without complication. All measurements were calculated based on NASCET criteria. A dose lowering technique was utilized adhering to the principles of ALARA. CT DOSE: 1004.05 mGy.cm FINDINGS: There are carotid bulb calcifications. The stent extending from the distal left common carotid artery to the proximal left internal carotid artery is widely patent. Bilateral common and internal carotid arteries show no significant narrowing or occlusion. The right vertebral artery is diminutive beyond PICA, anatomic variant. There is mild narrowing at the origin of the left vertebral artery. No significant narrowing or occlusion seen at the vertebral arteries bilaterally. There are a few small bilateral thyroid nodules, grossly stable. There are mild degenerative changes at the cervical spine. IMPRESSION: No significant arterial narrowing or occlusion seen at the neck. ACT 112: Negative or not required by law. The above report was generated using voice recognition software. It may contain grammatical, syntax or spelling errors. Electronically signed by: Deng Valladares M.D. 12/22/2024 8:49 AM Discharge Plan Visit Data Chief Complaint: Vertigo Stated Complaint: dizzy ED Provider: Rodolfo Hubbard Discharge Problem: TIA (transient ischemic attack), Dizziness Forms Stand Alone Forms: My [facility] Prescriptions Prescriptions: No Action Lumigan 0.01 % drops 1 drp ophthalmic (eye) DIRECTED Rx Instructions: Every other night, alternating with eye ointment. vitamin B complex Tablet 1 tab PO QAM carvedilol 3.125 mg tablet 3.125 mg PO BID cholecalciferol (vitamin D3) [Vitamin D3] 125 mcg (5,000 unit) Tablet 125 mcg PO QAM turmeric root extract 500 mg Tablet 1,000 mg PO QAM atorvastatin 40 mg tablet 40 mg PO HS clopidogrel 75 mg tablet 75 mg PO QAM PreserVision AREDS 2,148 mcg-113 mg-45 mg-17.4mg Tablet 2 tab PO BID Rx Instructions: administer with AM and PM meals losartan 50 mg tablet 50 mg PO DAILY ketoconazole 2 % shampoo 1 applic TOPICAL 3XWK amlodipine 5 mg tablet 5 mg PO DAILY triamcinolone acetonide 0.1 % cream 1 applic topical BID PRN (Reason: Red Rash) omeprazole 20 mg capsule,delayed release(DR/EC) 20 mg PO DAILY magnesium 250 mg Tablet 250 mg PO DAILY fluocinonide 0.05 % cream 1 applic topical BID PRN (Reason: Red Spots) clobetasol 0.05 % shampoo 1 applic TOPICAL HS Rx Instructions: Apply to scalp [place] 3 Fish Oil 900-1,400 mg Capsule,Delayed Release(Dr/Ec) 1 cap PO DAILY Eye Ointment 1 applic OPB DIRECTED Rx Instructions: Apply every other night alternating with Lumigan eye drops. Pt unsure of name/strength, gets it directly from flotation tender helper. aspirin 81 mg tablet,delayed release (DR/EC) 81 mg PO DAILY Referrals Referrals: PCP,NO [Physician] -
[2024-12-22] MEDS: MECLIZINE HCL 25 MG TAB PO STA (07:41)
[2024-12-22] MEDS: SODIUM CHLORIDE 0.9% 1,000 ML IV ONE (07:45)
[2024-12-22 07:50] LABS: Basophils # (auto) 0.06 K/uL (0.00-0.20); Eosinophils # (auto) 0.11 K/uL (0.00-0.50); Eosinophils % (auto) 1.9 %; Hematocrit (blood only) 39.5 % (37.0-47.0); Hemoglobin 13.4 g/dl (12.0-16.0); Immature Granulocytes # (auto) 0.01 K/uL (0.01-0.20); Immature Granulocytes % (auto) 0.2 %; Lymphocytes # (auto) 1.32 K/uL (1.20-3.40); Lymphocytes % (auto) 22.7 %; Mean Corpuscular Hemoglobin 31.1 pg (25.0-34.0); Mean Corpuscular Hgb Conc 33.9 g/dL (32.0-36.0); Mean Corpuscular Volume 91.6 fL (80.0-100.0); Mean Platelet Volume 8.9 fL (9.4-12.4); Monocytes # (auto) 0.51 K/uL (0.11-0.59); Monocytes % (auto) 8.8 %; Neutrophils % (auto) 65.4 %; Platelet Count 246 K/uL (130-400); RDW Coefficient of Variation 12.5 % (11.5-14.5); RDW Standard Deviation 41.8 fL (36.4-46.3); Red Blood Count 4.31 M/uL (4.20-5.40); White Blood Count 5.81 K/ul (4.8-10.8)
[2024-12-22 08:12] LABS: Albumin Level 4.3 gm/dl (3.4-5.0); Bilirubin,Total 1.1 mg/dl (0.2-1.0); Calcium 9.7 mg/dl (8.6-10.3); Potassium 4.2 mmol/L (3.5-5.1)
--- NOTE | 2024-12-22 08:12 | XRay Report ---
XR chest 1V portable CLINICAL HISTORY: Chest pain, nonspecific COMPARISON STUDY: 05/07/2023 FINDINGS: There is stable mild cardiomegaly without pulmonary vascular congestion. No effusion, conso lidation, or pneumothorax. IMPRESSION: No acute findings. ACT 112: Negative or not required by law. Electronically signed by: Deng Valladares M.D. 12/22/2024 8:11 AM
[2024-12-22 08:17] LABS: Troponin I High Sensitivity 6.1 pg/ml (0-14)
[2024-12-22 08:18] LABS: Albumin Globulin Ratio 1.5 (0.9-2); BUN Creatinine Ratio 24.7 (10-20); Globulin 2.8 gm/dl (2.5-4.0); Total Protein 7.1 gm/dl (6.0-8.3)
[2024-12-22] MEDS: OPTIRAY 320 125ml IV ONE (08:34)
--- NOTE | 2024-12-22 08:50 | CT Scan Report ---
CT angio neck with con CLINICAL HISTORY: dizzy feels like previous cva. COMPARISON STUDY: 04/10/2023 TECHNIQUE: Following the IV administration of 120 of Optiray, CT angiogram of the neck was performed from the aortic arch to the skull base. Images are reviewed in the axial, sagittal, and coronal plane s. 3-D MIPS images are created and assessed. IV contrast was administered without complication. All m easurements were calculated based on NASCET criteria. A dose lowering technique was utilized adherin g to the principles of ALARA. CT DOSE: 1004.05 mGy.cm FINDINGS: There are carotid bulb calcifications. The stent extending from the distal left common almeida tid artery to the proximal left internal carotid artery is widely patent. Bilateral common and chemist intern al carotid arteries show no significant narrowing or occlusion. The right vertebral artery is diminut maria m beyond PICA, anatomic variant. There is mild narrowing at the origin of the left vertebral artery . No significant narrowing or occlusion seen at the vertebral arteries bilaterally. There are a few s mall bilateral thyroid nodules, grossly stable. There are mild degenerative changes at the cervical s pine. IMPRESSION: No significant arterial narrowing or occlusion seen at the neck. ACT 112: Negative or not required by law. The above report was generated using voice recognition software. It may contain grammatical, syntax o r spelling errors. Electronically signed by: Deng Valladares M.D. 12/22/2024 8:49 AM
--- NOTE | 2024-12-22 08:56 | CT Scan Report ---
CT angio head wo/w CLINICAL HISTORY: 83 years-old Female with dizzy feels like previous cva. Acute dizziness with str khadar like symptoms COMPARISON STUDY: CTA neck of same day TECHNIQUE: Unenhanced axial CT scan of the brain is performed. Subsequently, following the IV adminis tration of cc of Optiray, CT angiogram of the brain was performed from the skull base to the vertex. Images are reviewed in the axial, sagittal, and coronal planes. 3-D MIPS images are created and asses sed. IV contrast was administered without complication. All measurements were obtained according to N ASCET criteria. A dose lowering technique was utilized adhering to the principles of ALARA. FINDINGS: CT BRAIN: There is no acute intracranial hemorrhage, midline shift, hydrocephalus, intracranial mass, territori al ischemia or abnormal extra-axial collections. No abnormal intra-axial or extra-axial enhancement. Involutional changes with patchy white matter hypodensities suggestive of chronic microvascular ische tommy disease. Mastoid air cells and middle ear cavities are clear. No calvarial fracture. Paranasal si nuses are clear. Numerous small cutaneous lesions of the scalp. CT ANGIOGRAM OF THE BRAIN: The imaged bilateral internal carotid arteries are patent. The bilateral anterior and middle cerebral arteries are also patent. origin of the right posterior cerebral artery. There is mild to mode rate luminal narrowing noted throughout the posterior cerebral arteries. No aneurysm, dissection, hig h-grade stenosis or arterial occlusion identified. Dural sinuses appear patent. IMPRESSION: 1. No acute intracranial abnormality. 2. CTA of the head demonstrates no aneurysm, dissection, high-grade stenosis or arterial occlusion. ACT 112: Negative or not required by law. The above report was generated using voice recognition software. It may contain grammatical, syntax o r spelling errors. Electronically signed by: Zhang Garibay M.D. 12/22/2024 8:54 AM
--- OUTSIDE RECORDS SUMMARY | 2024-12-22 09:22 | External Medical Summary | Continuity of Care Document ---
Author Name Unknown Organization [place] [id number] [facility] Address [address], [place] [id number] Care Team Providers Care Thaw Shed Heater Tender Name Role Phone Shanon Perry Primary Care Physician [phone] [facility]counter [facility] [id number] Date(s): 12/02/24 - 12/02/24 [facility] [address], [address] [place] [address] [phone] Discharge Disposition: Home or Self Care Attending Physician: MICAELA Fields Sarah A Referring Physician: MICAELA Fields Sarah A Encounter Type: Clinic Allergies, Adverse Reactions, Alerts Substance Criticality Severity Reaction Reaction Severity Status lisinopril cough Active Allergy Not found in Search 1 Nausea Active sulfa drugs Itching Rash Active Augmentin abdominal pain Activ e 1cantalope Immunizations Given and Recorded Vaccine Date Status Refusal Reason RSV vaccine preF3, recombinant 09/17/24 Recorded SARS COVID Vaccine Unspecified 06/14/24 Recorded influenza virus vaccine, inactivated 05/26/24 Paul rded influenza virus vaccine, inactivated 06/20/23 Give n influenza virus vaccine, inactivated 1 06/10/22 Re corded influenza virus vaccine, inactivated 2 06/15/21 Re corded influenza virus vaccine, inactivated 3 06/22/19 Re corded pneumococcal 20-valent conjugate vaccine 08/12/23 Given SARS-CoV-2 (COVID-19) mRNA-vacc - [id number] 06/29/23 Recorded SARS-CoV-2 mRNA (Pfizer 12+) bivalent 4 09/18/22 R ecorded SARS-CoV-2 mRNA-1273 (6y+ bivalent) 09/10/22 Recor ded SARS-CoV-2 (COVID-19) mRNA-1273 vaccine 07/14/21 R ecorded SARS-CoV-2 (COVID-19) mRNA-1273 vaccine 5 11/08/20 Recorded SARS-CoV-2 (COVID-19) mRNA-1273 vaccine 6 10/11/20 Recorded SARS-CoV-2 (COVID-19) mRNA-1273 vaccine 10/08/20 R ecorded zoster vaccine, inactivated 02/08/19 Given zoster vaccine, inactivated 11/19/18 Given pneumococcal 13-valent vaccine 7 09/26/16 Recorded Zoster Vaccine Unspecified 05/02/09 Recorded tetanus toxoids-diphtheria, Td (Adult) 8 03/30/09 Recorded pneumococcal 23-valent vaccine 9 07/09/07 Recorded pneumococcal 23-valent vaccine 10 07/13/98 Recorde d 1Result Comment: [facility] 2Result Comment: per [facility] 3Location History: [facility] 4Result Comment: 2022-11-08: Historical information-source unspecified 5Result Comment: 2021-07-16: Historical information-source unspecified 6Result Comment: 2021-07-16: Historical information-source unspecified 7Result Comment: 2019-03-23: Historical information-source unspecified 8Result Comment: 2019-03-23: Historical information-source unspecified 9Result Comment: 2019-03-23: Historical information-source unspecified 10Result Comment: 2019-03-23: Historical information-source unspecified Medications amLODIPine 5 mg oral tablet Start: 01/12/24 4:38:00 PM EDT, 1 tab, PO, Daily, Disp# 90 tab, Refills: 3, Pharmacy: [id number] Start Date: 01/12/24 Status: Ordered Quantity: 90.0 Unit: tab Repeat number: 4 aspirin 81 mg oral delayed release tablet Start: 04/16/23 11:00:00 AM EDT, 1 tab, PO, Daily, Disp# 90 tab, Refills: 3, Pharmacy: [id number] Start Date: 04/16/23 Status: Ordered Quantity: 90.0 Unit: tab Repeat number: 4 Indication: Occlusion and stenosis of left carotid artery atorvastatin 40 mg oral tablet Start: 07/01/24 10:52:00 AM EDT, 1 tab, PO, Daily, Disp# 90 tab, Refills: 3, Pharmacy: [id number] Start Date: 07/01/24 Status: Ordered Quantity: 90.0 Unit: tab Repeat number: 1 carvedilol 3.125 mg oral tablet Start: 05/11/24 1:51:00 PM EDT, See Instructions, Disp# 180 tab, Refills: 3, TAKE 1 TABLET BY MOUTH TWO TIMES DAILY, Pharmacy: [id number] Start Date: 05/11/24 Status: Ordered Quantity: 180.0 Unit: tab Repeat number: 1 clobetasol 0.05% topical ointment Start: 01/20/23 11:12:00 AM EDT, See Instructions, Disp# 15 g, Refills: 2, APPLY A THIN FILM TO VULVA TWO TIMES DAILY FOR 14 DAYS, Pharmacy: [id number] Start Date: 01/20/23 Status: Ordered Quantity: 15.0 Unit: g Repeat number: 1 clopidogrel 75 mg oral tablet Start: 05/24/24 3:20:00 PM EDT, 1 tab, PO, Daily, Disp# 90 tab, Refills: 3, Pharmacy: [facility] Start Date: 05/24/24 Status: Ordered Quantity: 90.0 Unit: tab Repeat number: 1 Co-Q10 100 mg oral capsule Start: 05/09/23 2:06:00 PM EDT, 1 cap, PO, Daily Start Date: 05/09/23 Status: Ordered Repeat number: 1 Colace 100 mg oral capsule Start: 09/27/19 9:50:00 AM EST, 1 cap, PO, Daily, PRN Start Date: 09/27/19 Status: Ordered Repeat number: 1 fluticasone 50 mcg/inh nasal spray Start: 05/29/23 11:23:00 AM EDT, See Instructions, Disp# 16 g, Refills: 5, USE 1 SPRAY IN EACH NOSTRIL DAILY, Pharmacy: [id number] Start Date: 05/29/23 Status: Ordered Quantity: 16.0 Unit: g Repeat number: 6 ketoconazole 2% topical cream Start: 04/08/24 1:44:00 PM EDT, 1 appl, topical, bid, Disp# 30 g, Refills: 2, To red scaly facial areas BID, Pharmacy: [id number] Start Date: 04/08/24 Status: Ordered Quantity: 30.0 Unit: g Repeat number: 3 ketoconazole 2% topical shampoo Start: 11/03/24 10:55:00 AM EST, See Instructions, Disp# 120 mL, Refills: 11, Shampoo at least 3 times per week., Pharmacy: [id number] Start Date: 11/03/24 Status: Ordered Quantity: 120.0 Unit: mL Repeat number: 12 losartan 50 mg oral tablet Start: 01/12/24 4:38:00 PM EDT, 1 tab, PO, Daily, Disp# 90 tab, Refills: 3, Pharmacy: [id number] Start Date: 01/12/24 Status: Ordered Quantity: 90.0 Unit: tab Repeat number: 4 Lumigan 0.01% ophthalmic solution Start: 05/16/20 4:19:00 PM EDT Start Date: 05/16/20 Status: Ordered Repeat number: 1 omeprazole 20 mg oral delayed release capsule Start: 08/02/24 12:54:00 PM EST, 1 cap, PO, Daily, Disp# 90 cap, Refills: 3, Pharmacy: [id number] Start Date: 08/02/24 Status: Ordered Quantity: 90.0 Unit: cap Repeat number: 4 PreserVision AREDS Start: 02/26/22 2:13:00 PM EDT Start Date: 02/26/22 Status: Ordered Repeat number: 1 triamcinolone 0.1% topical cream Start: 11/03/24 11:00:00 AM EST, 1 appl, topical, bid, Disp# 30 g, Refills: 2, To red rash BID PRN, Pharmacy: [id number] Start Date: 11/03/24 Status: Ordered Quantity: 30.0 Unit: g Repeat number: 3 Tumeric Start: 10/19/18 3:56:00 PM EST, Tumeric, 1 cap, PO, Daily Start Date: 10/19/18 Status: Ordered Repeat number: 1 Tylenol 8 HR Arthritis Pain 650 mg oral tablet, extended release Start: 12/23/23 1:27:00 PM EDT Start Date: 12/23/23 Status: Ordered Repeat number: 1 Vitamin B12 Start: 01/22/23 10:22:00 AM EDT Start Date: 01/22/23 Status: Ordered Repeat number: 1 Vitamin D3 5000 intl units oral capsule Start: 02/08/13 8:39:00 AM EDT, See Instructions, 1 cap PO Daily Start Date: 02/08/13 Status: Ordered Repeat number: 1 Z-Sleep Start: 08/22/23 2:17:00 PM EST Start Date: 08/22/23 Status: Ordered Repeat number: 1 Problem List Condition Confirmation Course Effective Dates Status Health Status Informant Acute upper respiratory infection Confirmed Active BCC (basal cell carcinoma) Confirmed Active Bilateral carotid artery stenosis Confirmed Active Chronic rhinitis Confirmed Active Blackhead Confirmed Active Skin cyst Confirmed Active Osteoarthritis, generalized Confirmed Active Elevated cholesterol Confirmed Active Epidermal cyst Confirmed Active Essential tremor Confirmed Active Family history of melanoma Confirmed Active FAMILY HISTORY OF OTHER SPECIFIED MALIGNANT NEOPLASM 1 Confirmed Active Female stress incontinence Confirmed Active GERD (gastroesophageal reflux disease) Confirmed Active Gingival hypertrophy Confirmed Active History of transcarotid artery revascularization (TCAR) Confirmed Active History of basal cell carcinoma (BCC) Confirmed Active PERSONAL HISTORY OF OTHER MALIGNANT NEOPLASM OF SKIN Confirmed Active Elevated cholesterol Confirmed Active Hyperlipidemia Confirmed Active Hyperlipidemia Confirmed Active Hypertension Confirmed Active Gingival hypertrophy Confirmed Active Inflamed seborrheic keratosis Confirmed Active Dermatitis Confirmed Active Knee pain 2 Confirmed Active Laugier-Hunziker syndrome Confirmed Active Symptomatic stenosis of left carotid artery Confirmed Active Lichen sclerosus Confirmed Active Lichen sclerosus Confirmed Active BCC (basal cell carcinoma) Confirmed Active Labial melanotic macule Confirmed Active Milia Confirmed Active Actinic keratoses Confirmed Active Body mass index [BMI] 32.0-32.9, adult Confirmed Active Thumb pain Confirmed Active Knee pain Confirmed Active PERSONAL HISTORY OF OTHER MALIGNANT NEOPLASM OF SKIN 3 Confirmed Active Pityriasis amiantacea Confirmed Active Reflux Confirmed Active RBBB plus LA hemiblock Confirmed Active Seasonal allergies Confirmed Active Seasonal allergies Confirmed Active Seborrhea Confirmed Active Seborrheic keratoses Confirmed Active SK (seborrheic keratosis) Confirmed Active Skin lesion Confirmed Active Presence of internal carotid stent Confirmed Active Meade's cyst of knee Confirmed Active 1sister has melanoma 2right 3bcc left leg, right cheek area Procedures Procedure Date Related Diagnosis Body Site Status Shave biopsy 1 11/23/24 Completed Removal - procedure 2 08/11/23 Com pleted left TCAR 04/21/23 Completed MRI 02/2023 Completed Mammogram 3 01/13/23 Completed Biopsy 4 11/05/22 Completed Biopsy 5 11/05/22 Completed Ultrasonography guided biops y of right breast 6, 7 08/14/22 Completed Diagnostic mammogram 8 07/26/22 Co mpleted Diagnostic mammogram 9 07/25/21 Co mpleted Colonoscopy 10 10/13/20 Completed Bone density scan 11 07/25/20 Comp leted Diagnostic mammogram 12 07/24/20 C ompleted Punch biopsy 13 11/08/19 Completed Mammogram 14 07/19/19 Completed Shave biopsy of skin 15 08/06/18 C ompleted Biopsy 07/14/18 Completed Shave biopsy 16 04/22/16 Completed Appendectomy Completed Cholecystectomy Completed Hand surgery, left 17 Com pleted History of knee surgery C ompleted Mohs micrographic surgery Completed Tonsillectomy Completed 11. right post upper arm ---H&E and DIF 2.left sup clavicle ---- H$E and DIF 2toenail, with Podiatry [address] [place] [address] [facility], [address] [place] [address], [address] [place], [address] Mammography Report Patient: NINFA DURAN Date: 01/13/23 MR#: [id number] 157 QUARRY Acct ID:[id number]: Date: 1940[facility] Zip: [place] [address] Age: 82Location: MAMMO Sex: FRoom/Bed: Att Phy: Naty Monterroso MDDiagnosis: RIGHT BREAST CALCS Karuna Phy: Starr Salazar CRNPService Date: 01/13/23 Fam Phy: Naty Monterroso MDInterpreting Phy: Melissa Felix MD Admit Phy: Ordering Phy: Naty Monterroso MD DICTATED BY: Melissa Felix MD cc: Naty Monterroso MD; Starr Salazar CRNP~ TOMOSYNTHESIS BIOPSY RIGHT BREAST: 01/13/2023 CLINICAL HISTORY: 82-year-old woman with 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 COMPARISON: Comparison is made to exams dated: 11/05/2022 mammogram, 08/14/2022 ultrasound biopsy, 08/14/2022 mammogram, 07/26/2022 ultrasound, 07/26/2022 mammogram, and 07/25/2021 mammogram - [facility]. PATIENT CONSENT: After explaining the risks, benefits and alternatives of the procedure to the patient, informed consent was obtained both verbally and in writing. Specific risks include: Bleeding, infection, puncture of adjacent structure, pain, nontarget biopsy, sampling error, metal allergy and medication reaction. PROCEDURE DESCRIPTION: A time-out was performed and the right breast was confirmed as the site of biopsy. The patient was positioned on the Affirm prone tomosynthesis/stereotactic biopsy table and the right breast was placed in CC from below compression. A tomosynthesis die polisher view was obtained which demonstrates the 10 mm grouping of faint punctate microcalcifications within the biopsy targeting window, therefore the calcifications were targeted utilizing the coordinates obtained by the computer. The skin was prepped with Betadine. 1% Lidocaine with and without epinipherine was administered as local anesthesia. A small skin incision was made. Through the incision, the needle was inserted to the depth determined by the computer. 8 samples were obtained using a [employer] 4U 9-gauge vacuum-assisted biopsy device. The specimen radiograph demonstrated several clearance representative microcalcifications, therefore, an hourglass shaped metallic marker was placed at the biopsy site. There was no immediate complication. Hemostasis was achieved after several minutes of manual compression. The samples were sent to pathology in an appropriately labeled container. On a separate upright [facility] tomosynthesis mammography unit, post procedure right CC and ML tomosynthesis images were obtained. There is a new hourglass shaped biopsy marker in the 6:00 posterior right breast. 2.0 x 4.0 cm hematoma along the tract of the biopsy needle in the 6:00 posterior and inferior right breast. Stable postoperative architectural distortion in the 9:00 right breast. Stable ribbon-shaped biopsy marker in the medial right breast. IMPRESSION: TOMOSYNTHESIS GUIDED BIOPSY Status post right breast stereotactic/tomosynthesis guided biopsy of a 10 mm grouping of faint punctate microcalcifications in the 6:00 posterior right breast, with hourglass shaped biopsy marker placed at the site. The patient will receive notification of the biopsy results once available. A contrast-enhanced bilateral breast MRI was also scheduled prior to leaving the department. Melissa Felix M.D. ay/:01/13/2023 15:05:52 4Right breast biopsy with wire localization. 5Needle localization left breast biopsy. 6[facility] Impression: 1 Biopsy of a new 7.0 x 7.5 mm mass in the right 9:00 breast with heart-shaped metallic biopsy marker placed at the site 7Pathology: Sclerotic epithelial lesion with atypical ductal hyperplasia 8[facility] Impression: ACR BI-RADS CATEGORY 4: SUSPICIOUS, ULTRASOUND ACR BI-RADS CATEGORY 4; SUSPICIOUS 1. New round hypoechoic 8 mm mass in the right 9:00 breast. The mass is indeterminate and ultraosound-guided core needle biopsy is recommended for further evaluation 2. Grouped punctate benign-appearing calcifications in the right 6:00 posterior breast are stable compared to multiple prior exams and are considered benign given the morphology and stability 3. No mammographic evidence of malignancy in the left breast 9[facility] Impression: ACR BI-RADS CATEGORY 3: PROBABLY BENIGN 1. Stable mammographic apperance of the left breast including postbiopsy change and other nonbiopsied groupings of benign-appearing microcalcifications that are stable on spot magnification views dating back to at least 2018, there fore considered benign given long-term stability. Overall, no evidence of malignancy 2. Stable mammographic appearance of the right breast including postbiopsy changes in the lower inner quadrant and a stable 10 mm grouping of punctate microcalcifications in the 6:00 posterior breast. Another 12 month diagnostic mammogram is recommended. 102 4-6mm polyps in transverse colon; non-bleeding hemorrhoids 11[facility] Impression: 1. AP Spine L1-L4 T-score: -1.3 2. Femur neck left T-score: -0.5 3. Femur neck right T-score: -0.4 4. Femur total left T-score: 0.4 5. Femur total right T-score: 0.2 6. Z-score: 0.5 BMD within normal limits relative to age 12[facility] Impression: ACR BI-RADS CATEGORY 3: PROBABLY BENIGN 1. Stable bilateral mammograms including postbiopsy changes in both breasts and stable groupings ofmicrocalcifications bilaterally. Another 12 month close follow-up bilateral diagnostic mammmogram including magnification views is recommended to ensure longer stability of bilateral breast calcifications given that they are not as well seen on the synthesized 2d mammography 13perineal body 14[facility] Impression: ACR BI-RADS CATEGORY 3: PROBABLY BENIGN 1. Stable bilateral mammograms including post biopsy changes in each breast and stable groupings offaint punctate and amorphous calcifications bilaterally. Another 12 month follow-up bilateral diagnostic mammogram including repeat spot magnification views is recommended to ensure longer stability of the calcifications 152 pieces right abdomen 16left shoulder 17tendon replacement Social History Social History Type Response Tobacco Former smoker 1 Smoking Status Never smoked cigaret oliver Sex Female Sex Representation Female (finding) 1Quit in 2000 Patient Care team information Care Team Personnel Name: GABRIELLE Smith Lynn Position: Physician Director Child Exempt - Vasc Surg Member Role: Lifetime Relationship [address]: [address] [place] [address] Telecom: [phone] Name: MICAELA Perry Katy Marie Position: Nurse Pract - Family Med Member Role: Primary Care Provider Address: [address] [place] [address] Telecom: [phone] Care Team Related Persons Name: TODD MARTINEZ Insurance Providers Guarantor name: NINFA DURAN Health Plan Information #: 1 Payer: ANGELINE Member Number: [id number] Policy Number: NA Group Number: [id number] Health Plan Information #: 2 Payer: [employer] Member Number: [id number] Policy Number: NA Group Number: [id number]
--- OUTSIDE RECORDS SUMMARY | 2024-12-22 09:22 | External Medical Summary | Continuity of Care Document ---
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 Name Role Phone Shanon Perry Primary Care Physician [phone] Encounter [facility] [id number] Date(s): 12/07/24 - 12/07/24 [facility] [address] [id number] Encounter Diagnosis Dermatitis(Discharge Diagnosis) - 12/07/24 Pityriasis amiantacea(Discharge Diagnosis) - 12/07/24 Discharge Disposition: Home or Self Care Attending Physician: MD Rishi, Makayla Arroyo Encounter Type: Clinic Allergies, Adverse Reactions, Alerts Substance Criticality Severity Reaction Reaction Severity Status lisinopril cough Active Allergy Not found in Search 1 Nausea Active sulfa drugs Itching Rash Active Augmentin abdominal pain Activ e 1cantalope Assessment and Plan Extracted from: Title:Dermatology Office Visit Note Author:Dick velasquez MD, Makayla Arroyo Date:12/07/24 1. Dermatitis The rash from 2 different areas had 2 different morphologies 1 with more psoriasiform features and 1 with more dermatitic features. Both direct immunofluorescence's were negative. Differential diagnosis includes EAC PLC dermatitis MF psoriasis. The highest on my differential is actually drug-induced. None of her medications or supplements are new and she has not gone up or changed formulations on any. For now organ to take 2 new biopsies on the right chest and the right leg. The area was identified and time out was completed. Verbal informed consent was obtained with the patient aware of the possibility of bleeding, scarring and infection and they did elect to proceed. The site was cleansed with alcohol and anesthetized with 1% lidocaine with epinephrine. Time out was performed and scanned into the patient's chart. Tangential shave biopsy was performed, hemostasis was achieved with cautery and the area was dressed with Vaseline and a bandage. Patient was given verbal and written instructions regarding wound care. My office will be in touch with results. Call with any problems. Photograph(s) was/were taken to document location and verbal informed consent was obtained to use the [address] Camera Capture christ. I am going to go to clobetasol cream for any patches she has on her trunk risks and benefits of chronic steroids including skin thinning when use long-term were discussed. I will see her back in about 2 to 3 weeks and reassess. I did see her both with Ambar Alvarez and Dr. Almanzar and we were in agreement on current plan of action including repeat biopsies. 2. Pityriasis amiantacea Chronic, not at goal, I think it is different than the patches she has on her trunk. We are going to start 0.05% Clobex shampoo for the scalp alternating with the ketoconazole. 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 Risks and benefits including skin thinning with chronic use of steroids topically were discussed Immunizations Given and Recorded Vaccine Date Status [...] vaccine 08/12/23 Given SARS-CoV-2 (COVID-19) mRNA-vacc - [id number] 06/29/23 Recorded SARS-CoV-2 mRNA (Pfizer 12+) bivalent [...] vaccine 10 07/13/98 Recorde d 1Result Comment: [facility] 2Result Comment: per [facility] 3Location History: [facility] 4Result Comment: 2022-11-08: Historical information-source unspecified [...] Daily, Disp# 90 tab, Refills: 3, Pharmacy: [id number] Start Date: 01/12/24 Status: Ordered Quantity: 90.0 Unit: tab Repeat number: 4 aspirin 81 mg oral delayed release tablet Start: 04/16/23 11:00:00 AM EDT, 1 tab, PO, Daily, Disp# 90 tab, Refills: 3, Pharmacy: [facility] Start Date: 04/16/23 Status: Ordered Quantity: 90.0 Unit: tab Repeat number: 4 Indication: Occlusion and stenosis of left carotid artery atorvastatin 40 mg oral tablet Start: 07/01/24 10:52:00 AM EDT, 1 tab, PO, Daily, Disp# 90 tab, Refills: 3, Pharmacy: [facility] Start Date: 07/01/24 Status: Ordered Quantity: 90.0 Unit: tab Repeat number: 1 carvedilol 3.125 mg oral tablet Start: 05/11/24 1:51:00 PM EDT, See Instructions, Disp# 180 tab, Refills: 3, TAKE 1 TABLET BY MOUTH TWO TIMES DAILY, Pharmacy: [facility] Start Date: 05/11/24 Status: Ordered Quantity: 180.0 Unit: tab Repeat number: 1 clobetasol 0.05% topical ointment Start: 01/20/23 11:12:00 AM EDT, See Instructions, Disp# 15 g, Refills: 2, APPLY A THIN FILM TO VULVA TWO TIMES DAILY FOR 14 DAYS, Pharmacy: [facility] Start Date: 01/20/23 Status: Ordered Quantity: 15.0 Unit: g Repeat number: 1 Clobex 0.05% topical shampoo Start: 12/07/24 9:10:00 AM EDT, 1 appl, topical, Daily, Disp# 118 mL, Refills: 1, To invovled scalp nightly, Pharmacy: [facility] Start Date: 12/07/24 Status: Ordered Quantity: 118.0 Unit: mL Repeat number: 2 clopidogrel 75 mg oral tablet Start: 05/24/24 3:20:00 PM EDT, 1 tab, PO, Daily, Disp# 90 tab, Refills: 3, Pharmacy: [facility] Start Date: 05/24/24 Status: Ordered Quantity: 90.0 Unit: tab Repeat number: 1 Co-Q10 100 mg oral capsule Start: 05/09/23 2:06:00 PM EDT, 1 cap, PO, Daily Start Date: 05/09/23 Status: Ordered Repeat number: 1 Colace 100 mg oral capsule Start: 09/27/19 9:50:00 AM EST, 1 cap, PO, Daily, PRN Start Date: 09/27/19 Status: Ordered Repeat number: 1 fluocinonide 0.05% topical cream Start: 12/07/24 9:11:00 AM EDT, 1 appl, topical, bid, Disp# 120 g, TO itchy red spots on BID as needed., Pharmacy: [facility] Start Date: 12/07/24 Status: Ordered Quantity: 120.0 Unit: g Repeat number: 1 fluticasone 50 mcg/inh nasal spray Start: 05/29/23 11:23:00 AM EDT, See Instructions, Disp# 16 g, Refills: 5, USE 1 SPRAY IN EACH NOSTRIL DAILY, Pharmacy: [facility] Start Date: 05/29/23 Status: Ordered Quantity: 16.0 Unit: g Repeat number: 6 ketoconazole 2% topical cream Start: 04/08/24 1:44:00 PM EDT, 1 appl, topical, bid, Disp# 30 g, Refills: 2, To red scaly facial areas BID, Pharmacy: [facility] Start Date: 04/08/24 Status: Ordered Quantity: 30.0 Unit: g Repeat number: 3 ketoconazole 2% topical shampoo Start: 11/03/24 10:55:00 AM EST, See Instructions, Disp# 120 mL, Refills: 11, Shampoo at least 3 times per week., Pharmacy: [facility] Start Date: 11/03/24 Status: Ordered Quantity: 120.0 Unit: mL Repeat number: 12 losartan 50 mg oral tablet Start: 01/12/24 4:38:00 PM EDT, 1 tab, PO, Daily, Disp# 90 tab, Refills: 3, Pharmacy: [facility] Start Date: 01/12/24 Status: Ordered Quantity: 90.0 Unit: tab Repeat number: 4 Lumigan 0.01% ophthalmic solution Start: 05/16/20 4:19:00 PM EDT Start Date: 05/16/20 Status: Ordered Repeat number: 1 [place]-3 Fish Oil Start: 12/07/24 8:53:00 AM EDT Start Date: 12/07/24 Status: Ordered Repeat number: 1 omeprazole 20 mg oral delayed release capsule Start: 08/02/24 12:54:00 PM EST, 1 cap, PO, Daily, Disp# 90 cap, Refills: 3, Pharmacy: [facility] Start Date: 08/02/24 Status: Ordered Quantity: 90.0 Unit: cap Repeat number: 4 PreserVision AREDS Start: 02/26/22 2:13:00 PM EDT Start Date: 02/26/22 Status: Ordered Repeat number: 1 Tumeric Start: 10/19/18 3:56:00 PM EST, Tumeric, [...] Date: 08/22/23 Status: Ordered Repeat number: 1 Mental Status 12/07/24 Barriers to Learning one year None evide nt Mandatory Health Literacy Documentation Yes Health Literacy Communication Barriers N ever Primary Language Guatemalan Problem List Condition Confirmation Course Effective Dates [...] 2right 3bcc left leg, right cheek area Diagnosis Diagnosis Type Effective Dates Health Status Clinical Service Informant Dermatitis Discharge Diagnosis 12/07/24 Pityriasis amiantacea Discharge Diagnosis 12/07/24 Procedures Procedure Date Related Diagnosis Body Site Status Shave biopsy and cauterizati on of skin 1 12/07/24 Completed Shave biopsy 2 11/23/24 Completed Removal - procedure 3 08/11/23 Com pleted left TCAR 04/21/23 Completed MRI 02/2023 Completed Mammogram 4 01/13/23 Completed Biopsy 5 11/05/22 Completed Biopsy 6 11/05/22 Completed Ultrasonography guided biops y of right breast 7, 8 08/14/22 Completed Diagnostic mammogram 9 07/26/22 Co mpleted Diagnostic mammogram 10 07/25/21 C ompleted Colonoscopy 11 10/13/20 Completed Bone density scan 12 07/25/20 Comp leted Diagnostic mammogram 13 07/24/20 C ompleted Punch biopsy 14 11/08/19 Completed Mammogram 15 07/19/19 Completed Shave biopsy of skin 16 08/06/18 C ompleted Biopsy 07/14/18 Completed Shave biopsy 17 04/22/16 Completed Appendectomy Completed Cholecystectomy Completed Hand surgery, left 18 Com pleted History of knee surgery C ompleted Mohs micrographic surgery Completed Tonsillectomy Completed 11. Right medial chest 2. Right upper thigh 21. right post upper arm ---H&E and DIF 2.left sup clavicle ---- H$E and DIF 3toenail, with Podiatry 4[facility], [address], [address] [place], [address] Mammography Report Patient: NINFA DURAN Date: 01/13/23 MR#: [id number] [address] Acct ID:[id number]: Date: 1940[facility] Zip: [place] [address] Age: 82Location: MAMMO Sex: FRoom/Bed: Att Phy: [...] ultrasound, 07/26/2022 mammogram, and 07/25/2021 mammogram - [facility]. PATIENT CONSENT: After explaining the risks, benefits [...] in CC from below compression. A tomosynthesis machine gunner view was obtained which demonstrates the 10 [...] computer. 8 samples were obtained using a [employer] 9-gauge vacuum-assisted biopsy device. 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 There was no immediate complication. Hemostasis was achieved after several minutes of manual compression. The samples were sent to pathology in an appropriately labeled container. On a separate upright Hologic dimensions tomosynthesis mammography unit, post procedure right CC [...] the department. Melissa Felix M.D. ay/:01/13/2023 15:05:52 5Right breast biopsy with wire localization. 6Needle localization left breast biopsy. 7[facility] Impression: 1 Biopsy of a new 7.0 x 7.5 mm mass in the right 9:00 breast with heart-shaped metallic biopsy marker placed at the site 8Pathology: Sclerotic epithelial lesion with atypical ductal hyperplasia 9[facility] Impression: ACR BI-RADS CATEGORY 4: SUSPICIOUS, ULTRASOUND [...] evidence of malignancy in the left breast 10[facility] Impression: ACR BI-RADS CATEGORY 3: PROBABLY BENIGN [...] Another 12 month diagnostic mammogram is recommended. 112 4-6mm polyps in transverse colon; non-bleeding hemorrhoids 12[facility] Impression: 1. AP Spine L1-L4 T-score: -1.3 2. Femur neck left T-score: -0.5 3. Femur neck right T-score: -0.4 4. Femur total left T-score: 0.4 5. Femur total right T-score: 0.2 6. Z-score: 0.5 BMD within normal limits relative to age 13[facility] Impression: ACR BI-RADS CATEGORY 3: PROBABLY BENIGN 1. Stable bilateral mammograms including postbiopsy changes in both breasts and stable groupings ofmicrocalcifications bilaterally. Another 12 month close follow-up bilateral diagnostic mammmogram including magnification views is recommended to ensure longer stability of bilateral breast calcifications given that they are not as well seen on the synthesized 2d mammography 14perineal body 15[facility] Impression: ACR BI-RADS CATEGORY 3: PROBABLY BENIGN 1. Stable bilateral mammograms including post biopsy changes in each breast and stable groupings offaint punctate and amorphous calcifications bilaterally. Another 12 month follow-up bilateral diagnostic mammogram including repeat spot magnification views is recommended to ensure longer stability of the calcifications 162 pieces right abdomen 17left shoulder 18tendon replacement Social History Social History Type Response Tobacco Former smoker 1 Smoking Status Never smoked cigaret oliver Sex Female Sex Representation Female (finding) 1Quit in 2000 Dermatology Outpatient Note * MD Rishi, Makayla Arroyo: PERFORM Event Display: Dermatology Outpt Note Authored Date: [id number] Chief Complaint 2 wk f/u History of Present Illness Ms. Duran follows up today for rash. She came in initially with a new onset rash in November 03, 2024. She had had several months of some scaling on her scalp and only a couple week history of some rash. Patient is unaware of anything she has changed such as detergents shampoos or medications around that time. In the intervening couple weeks since I treated her with IM Kenalog and did her biopsy she has figured out that she may have started eating peanut butter around that time so hasstopped it as of 2 days ago. The patient states that the IM Kenalog helped a little bit but not completely. She is not using the topical triamcinolone as she does not think it helps. She is alternating ketoconazole shampoo with tea tree oil shampoo and she just got a shampoo brush that she is going to start using this week Physical Exam Exam of trunk and scalp as well as extremities show erythematous somewhat annular patches with some scale some have a different morphology some look more patchy nummular dermatitis on the back around her seborrheic keratoses there is a more targetoid lesion on the right central chest 1 with an outer edge of scale on the right anterior thigh. We will biopsy those areas today. Assessment/Plan 1. Dermatitis The rash from 2 different areas had 2 different morphologies 1 with more psoriasiform features and1 with more dermatitic features. Both direct immunofluorescence's were negative. Differential diagnosis includes EAC PLC dermatitis MF psoriasis. The highest on my differential is actually drug-induced. None of her medications or supplements are new and she has not gone up or changed formulations on any. For now organ to take 2 new biopsies on the right chest and the right leg. The area was identified and time out was completed. Verbal informed consent was obtained with thepatient aware of the possibility of bleeding, scarring and infection and they did elect to proceed.The site was cleansed with alcohol and anesthetized with 1% lidocaine with epinephrine. Time out was performed and scanned into the patient's chart. Tangential shave biopsy was performed, hemostasis was achieved with cautery and the area was dressed with Vaseline and a bandage. Patient was given verbal and written instructions regarding wound care. My office will be in touch with results. Call with any problems. Photograph(s) was/were taken to document location and verbal informed consent was obtained to use the [address] Camera Capture christ. I am going to go to clobetasol cream for any patches she has on her trunk risks and benefits of chronic steroids including skin thinning when use long-term were discussed. I will see her back in about 2 to 3 weeks and reassess. I did see her both with Ambar Alvarez and Dr. Almanzar and we were in agreement on current plan of action including repeat biopsies. 2. Pityriasis amiantacea Chronic, not at goal, I think it is different than the patches she has on her trunk. We are goingto start 0.05% Clobex shampoo for the scalp alternating with the ketoconazole. 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 Risks and benefits including skin thinning with chronic use of steroids topically were discussed Problem List/Past Medical History Ongoing Actinic keratoses Acute upper respiratory infection Meade's cyst of knee BCC (basal cell carcinoma) BCC (basal cell carcinoma) Bilateral carotid artery stenosis [place] Body mass index [BMI] 32.0-32.9, adult Chronic rhinitis Dermatitis Elevated cholesterol Elevated cholesterol Epidermal cyst Essential tremor Family history of melanoma FAMILY HISTORY OF OTHER SPECIFIED MALIGNANT NEOPLASM Female stress incontinence GERD (gastroesophageal reflux disease) Gingival hypertrophy Gingival hypertrophy History of basal cell carcinoma (BCC) History of transcarotid artery revascularization (TCAR) Hyperlipidemia Hyperlipidemia Hypertension Inflamed seborrheic keratosis Knee pain Knee pain 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 Lichen sclerosus Milia Osteoarthritis, generalized PERSONAL HISTORY OF OTHER MALIGNANT NEOPLASM OF SKIN PERSONAL HISTORY OF OTHER MALIGNANT NEOPLASM OF SKIN 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 Rash| Status: Inactive RBBB plus LA hemiblock Reflux Seasonal allergies Seasonal allergies Seborrhea Seborrheic keratoses SK (seborrheic keratosis) Skin cyst Skin lesion Symptomatic stenosis of left carotid artery Thumb pain Resolved Acute pain of left knee Acute pain of left knee Neoplasm of uncertain behavior of skin Open wound PMR (polymyalgia rheumatica) Sinus problem Procedure/Surgical History •Shave biopsy and cauterization of skin| Service Date: 12/07/2024•Shave biopsy| Service Date: 11/23/2024•Removal - procedure| Service Date: 08/11/2023•left TCAR| Service Date: 04/21/2023•MRI| Service Date: 02/2023•Mammogram| Service Date: 01/13/2023•Biopsy| Service Date: 11/05/2022•Biopsy| Service Date: 11/05/2022•Ultrasonography guided biopsy of right breast| Service Date: 08/14/2022•Diagnostic mammogram| Service Date: 07/26/2022•Diagnostic mammogram| Service Date: 07/25/2021•Colonoscopy| Service Date: 10/13/2020•Bone density scan| Service Date: 07/25/2020•Diagnostic mammogram| Service Date: 07/24/2020•Punch biopsy| Service Date: 11/08/2019•Mammogram| Service Date: 07/19/2019•Shave biopsy of skin| Service Date: 08/06/2018•Biopsy| Service Date: 07/14/2018•Shave biopsy| Service Date: 04/22/2016•Hand surgery, left•Mohs micrographic surgery•Cholecystectomy•Tonsillectomy•Appendectomy•History of knee surgery Medications acetaminophen(Tylenol 8 HR Arthritis Pain 650 mg oral tablet, extended release) amLODIPine(amLODIPine 5 mg oral tablet), 5 mg= 1 tab, PO, Daily, 3 refills aspirin(aspirin 81 mg oral delayed release tablet), 81 mg= 1 tab, PO, Daily, 3 refills atorvastatin(atorvastatin 40 mg oral tablet), 1 tab, PO, Daily bimatoprost ophthalmic(Lumigan 0.01% ophthalmic solution) carvedilol(carvedilol 3.125 mg oral tablet), See Instructions cholecalciferol(Vitamin D3 5000 intl units oral capsule), See Instructions clobetasol topical(Clobex 0.05% topical shampoo), 1 appl, topical, Daily, 1 refills clobetasol topical(clobetasol 0.05% topical ointment), See Instructions clopidogrel(clopidogrel 75 mg oral tablet), 1 tab, PO, Daily cyanocobalamin(Vitamin B12) diphenhydrAMINE(Z-Sleep) docusate(Colace 100 mg oral capsule), 100 mg= 1 cap, PO, Daily fluocinonide topical(fluocinonide 0.05% topical cream), 1 appl, topical, bid fluticasone nasal(fluticasone 50 mcg/inh nasal spray), See Instructions, 5 refills ketoconazole topical(ketoconazole 2% topical cream), 1 appl, topical, bid, 2 refills ketoconazole topical(ketoconazole 2% topical shampoo), See Instructions, 11 refills losartan(losartan 50 mg oral tablet), 50 mg= 1 tab, PO, Daily, 3 refills multivitamin with minerals(PreserVision AREDS) omega-3 polyunsaturated fatty acids([place]-3 Fish Oil) omeprazole(omeprazole 20 mg oral delayed release capsule), 20 mg= 1 cap, PO, Daily, 3 refills ubiquinone(Co-Q10 100 mg oral capsule), 100 mg= 1 cap, PO, Daily unlisted medication(Tumeric), 1 cap, PO, Daily Allergies Allergy Not found in Search Nausea Augmentin abdominal pain lisinopril cough sulfa drugs Itching, Rash Social History Smoking Status Never smoked cigarettes Alcohol Use:Current Type:Wine Frequency:Daily Employment/School Status:Retired Description:[employer] Exercise - Occasional exercise Exercise type:Walking Home/Environment Lives with:Spouse Living situation:Home/Independent Feels unsafe at home:No - Comments: Home has smoke and CO detectors. Wears seatbelt in the car. Wears sun protectoin when outdoors. Nutrition/Health Caffeine intake amount:1 cup of coffee/day Other Details:Has not had a blood transfusion and has not been incarcerated. Can't recall having HIV or hepatitis C screening. Sexual Sexually active:Yes Self described orientation:Lesbian, so or homosexual Substance Abuse - Denies Substance Abuse Tobacco Use:Former smoker - Comments: Quit in 2000 Family History Heart attack: Brother. Heart disease: Brother. Irregular heart beat: Sister. Melanoma: Sister and Brother. Menieres disease: Sister. Stroke: Mother. Health Status Family Member(s) Electronic Signature on File Electronically Reviewed/Signed by: Makayla Blackwell MD Author Signature Dt/Tm:12/07/2024 09:49 AM Department of Dermatology [facility] Patient Care team information Care Team Personnel Name: GABRIELLE Smith Lynn Position: Physician Acetone Button Paster Exempt - Vasc Surg Member Role: Lifetime Relationship Address: [address] [place] [address] Telecom: [phone] Name: MICAELA Perry Katy Marie Position: Nurse Pract - Family Med Member Role: Primary Care Provider Address: [address] [place] [address] [address] Telecom: [phone] Care Team Related Persons Name: TODD MARTINEZ Insurance Providers Guarantor name: NINFA DURAN Health Plan Information #: 1 Payer: [employer] Member Number: [id number] Policy Number: NA Group Number: [id number] Health Plan Information #: 2 Payer: [employer] Member Number: [id number] Policy Number: NA Group Number: [id number]"
--- OUTSIDE RECORDS SUMMARY | 2024-12-22 09:23 | External Medical Summary | Continuity of Care Document ---
Author Name Unknown Organization [facility] [address] [id number] Care Team Providers Care Vocational Examiner Name Role Phone Shanon Perry Primary Care Physician [phone] Encounter [facility] [id number] Date(s): 11/03/24 - 11/03/24 [facility] [address] [phone] Encounter Diagnosis Pityriasis amiantacea(Discharge Diagnosis) - 11/03/24 Inflamed seborrheic keratosis(Discharge Diagnosis) - 11/03/24 Dermatitis(Discharge Diagnosis) - 11/03/24 Seborrheic keratoses(Discharge Diagnosis) - 11/03/24 Discharge Disposition: Home or Self Care Attending Physician: MD Rishi, Makayla Arroyo Encounter Type: Clinic Allergies, Adverse Reactions, Alerts Substance Criticality Severity Reaction Reaction Severity Status lisinopril cough Active Allergy Not found in Search 1 Nausea Active sulfa drugs Itching Rash Active Augmentin abdominal pain Activ e 1cantalope Assessment and Plan Extracted from: Title:Dermatology Office Visit Note Author:Dick velasquez MD, Makayla Arroyo Date:11/03/24 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 Printed out information online from [employer] to hand to her. Recommended alternating ketoconazole shampoo and Neutrogena T- cell shampoo daily lather up Allevyn for 10 minutes and then rinse well. She will only use to this area of the scalp. She does not need to use elsewhere. Risks and benefits including irritation were discussed as well as brittleness of hair. 2. Inflamed seborrheic keratosis X 3 Lesions treated with liquid nitrogen. Patient aware of possibility of infection, hypo or hyperpigmentation or scarring and did elect to proceed. They should inform me of any problems or recurrences post treatment. Care sheet given. 3. Dermatitis Favor nummular eczema. Acute. Recommended Cetaphil or CeraVe twice a day. Also recommended triamcinolone 0.1% cream to red areas twice a day as needed. Risks and benefits including skin thinning were discussed. 4. Seborrheic keratoses Chronic, within normal limits today Immunizations Given and Recorded Vaccine Date Status [...] vaccine 08/12/23 Given SARS-CoV-2 (COVID-19) mRNA-vacc - [id number] 06/29/23 Recorded SARS-CoV-2 mRNA (Pfizer 12+) bivalent [...] vaccine 10 07/13/98 Recorde d 1Result Comment: [facility] 2Result Comment: per [facility] 3Location History: [facility] 4Result Comment: 2022-11-08: Historical information-source unspecified [...] Daily, Disp# 90 tab, Refills: 3, Pharmacy: [id number] Start Date: 01/12/24 Status: Ordered Quantity: 90.0 Unit: tab Repeat number: 4 aspirin 81 mg oral delayed release tablet Start: 04/16/23 11:00:00 AM EDT, 1 tab, PO, Daily, Disp# 90 tab, Refills: 3, Pharmacy: [id number] Start Date: 04/16/23 Status: Ordered Quantity: 90.0 Unit: tab Repeat number: 4 Indication: Occlusion and stenosis of left carotid artery atorvastatin 40 mg oral tablet Start: 07/01/24 10:52:00 AM EDT, 1 tab, PO, Daily, Disp# 90 tab, Refills: 3, Pharmacy: [facility] Start Date: 07/01/24 Status: Ordered Quantity: 90.0 Unit: tab Repeat number: 1 carvedilol 3.125 mg oral tablet Start: 05/11/24 1:51:00 PM EDT, See Instructions, Disp# 180 tab, Refills: 3, TAKE 1 TABLET BY MOUTH TWO TIMES DAILY, Pharmacy: [facility] Start Date: 05/11/24 Status: Ordered Quantity: 180.0 Unit: tab Repeat number: 1 clobetasol 0.05% topical ointment Start: 01/20/23 11:12:00 AM EDT, See Instructions, Disp# 15 g, Refills: 2, APPLY A THIN FILM TO VULVA TWO TIMES DAILY FOR 14 DAYS, Pharmacy: [facility] Start Date: 01/20/23 Status: Ordered Quantity: 15.0 Unit: g Repeat number: 1 clopidogrel 75 mg oral tablet Start: 05/24/24 3:20:00 PM EDT, 1 tab, PO, Daily, Disp# 90 tab, Refills: 3, Pharmacy: [facility] Start Date: 05/24/24 Status: Ordered [...] 1 SPRAY IN EACH NOSTRIL DAILY, Pharmacy: [facility] Start Date: 05/29/23 Status: Ordered Quantity: 16.0 Unit: g Repeat number: 6 ketoconazole 2% topical cream Start: 04/08/24 1:44:00 PM EDT, 1 appl, topical, bid, Disp# 30 g, Refills: 2, To red scaly facial areas BID, Pharmacy: [facility] Start Date: 04/08/24 Status: Ordered Quantity: 30.0 Unit: g Repeat number: 3 ketoconazole 2% topical shampoo Start: 11/03/24 10:55:00 AM EST, See Instructions, Disp# 120 mL, Refills: 11, Shampoo at least 3 times per week., Pharmacy: [facility] Start Date: 11/03/24 Status: Ordered Quantity: 120.0 Unit: mL Repeat number: 12 losartan 50 mg oral tablet Start: 01/12/24 4:38:00 PM EDT, 1 tab, PO, Daily, Disp# 90 tab, Refills: 3, Pharmacy: [facility] Start Date: 01/12/24 Status: Ordered Quantity: 90.0 Unit: tab Repeat number: 4 Lumigan 0.01% ophthalmic solution Start: 05/16/20 4:19:00 PM EDT Start Date: 05/16/20 Status: Ordered Repeat number: 1 omeprazole 20 mg oral delayed release capsule Start: 08/02/24 12:54:00 PM EST, 1 cap, PO, Daily, Disp# 90 cap, Refills: 3, Pharmacy: [facility] Start Date: 08/02/24 Status: Ordered Quantity: 90.0 Unit: cap Repeat number: 4 PreserVision AREDS Start: 02/26/22 2:13:00 PM EDT Start Date: 02/26/22 Status: Ordered Repeat number: 1 triamcinolone 0.1% topical cream Start: 11/03/24 11:00:00 AM EST, 1 appl, topical, bid, Disp# 30 g, Refills: 2, To red rash BID PRN, Pharmacy: [facility] Start Date: 11/03/24 Status: Ordered [...] Status: Ordered Repeat number: 1 Mental Status 11/03/24 Barriers to Learning one year None evide nt Mandatory Health Literacy Documentation Yes Health Literacy Communication Barriers N ever Primary Language Sami Problem List Condition Confirmation Course Effective Dates [...] Status Clinical Service Informant Dermatitis Discharge Diagnosis 11/03/24 Pityriasis amiantacea Discharge Diagnosis 11/03/24 Seborrheic keratoses Discharge Diagnosis 11/03/24 Inflamed seborrheic keratosis Discharge Diagnosis 11/03/24 Procedures Procedure Date Related Diagnosis Body Site Status Removal - procedure 1 08/11/23 Com pleted left TCAR 04/21/23 Completed MRI 02/2023 Completed Mammogram 2 01/13/23 Completed Biopsy 3 11/05/22 Completed Biopsy 4 11/05/22 Completed Ultrasonography guided biops y of right breast 5, 6 08/14/22 Completed Diagnostic mammogram 7 07/26/22 Co mpleted Diagnostic mammogram 8 07/25/21 Co mpleted Colonoscopy 9 10/13/20 Completed Bone density scan 10 07/25/20 Comp leted Diagnostic mammogram 11 07/24/20 C ompleted Punch biopsy 12 11/08/19 Completed Mammogram 13 07/19/19 Completed Shave biopsy of skin 14 08/06/18 C ompleted Biopsy 07/14/18 Completed Shave biopsy 15 04/22/16 Completed Appendectomy Completed Cholecystectomy Completed Hand surgery, left 16 Com pleted History of knee surgery C ompleted Mohs micrographic surgery Completed Tonsillectomy Com[facility] [address] [place] [address], [address] [place], [address] Mammography Report Patient: NINFA DURAN Date: 01/13/23 MR#: [id number] [address] Acct ID:[id number]: Date: [address] [place] [address] Zip: [place] [address] Age: 82Location: MAMMO Sex: FRoom/Bed: Att Phy: [...] ultrasound, 07/26/2022 mammogram, and 07/25/2021 mammogram - [facility]. PATIENT CONSENT: After explaining the risks, [...] in CC from below compression. A tomosynthesis group manager view was obtained which demonstrates the 10 [...] computer. 8 samples were obtained using a Loccie 9-gauge vacuum-assisted biopsy device. The specimen radiograph demonstrated several business services sales representative microcalcifications, therefore, an hourglass shaped [...] the department. Melissa Felix M.D. ay/:01/13/2023 15:05:52 3Right breast biopsy with wire localization. 4Needle localization left breast biopsy. 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 92 4-6mm polyps in transverse colon; non-bleeding hemorrhoids 10[facility] Impression: 1. AP Spine L1-L4 T-score: -1.3 2. Femur neck left T-score: -0.5 3. Femur neck right T-score: -0.4 4. Femur total left T-score: 0.4 5. Femur total right T-score: 0.2 6. Z-score: 0.5 BMD within normal limits relative to age 11[facility] Impression: ACR BI-RADS CATEGORY 3: PROBABLY BENIGN 1. Stable bilateral mammograms including postbiopsy changes in both breasts and stable groupings ofmicrocalcifications bilaterally. Another 12 month close follow-up bilateral diagnostic mammmogram including magnification views is recommended to ensure longer stability of bilateral breast calcifications given that they are not as well seen on the synthesized 2d mammography 12perineal body 13[facility] Impression: ACR BI-RADS CATEGORY 3: PROBABLY BENIGN 1. Stable bilateral mammograms including post biopsy changes in each breast and stable groupings offaint punctate and amorphous calcifications bilaterally. Another 12 month follow-up bilateral diagnostic mammogram including repeat spot magnification views is recommended to ensure longer stability of the calcifications 142 pieces right abdomen 15left shoulder 16tendon replacement Social History Social History Type Response Tobacco Former smoker 1 Smoking Status Never smoked cigaret oliver Sex Female Sex Representation Female (finding) 1Quit in 2000 Dermatology Outpatient Note * MD Rishi, Makayla Arroyo: PERFORM Event Display: Dermatology Outpt Note Authored Date: Chief Complaint cyst on scalp, spot on back, and on arms History of Present Illness The patient reports today with numerous acute concerns. She is in an overbook slot. She has somescaly spot that she has had for the past 3 to 4 months on her right scalp. She is not using any kind of antidandruff shampoo. It is gotten crusty and her hair. It is itchy. She also points out many scaly spots. She has 100s of seborrheic keratoses. The ones in her left scalp a bit more noticeable. In addition she points out 3 irritated spots that she caught with her fingernail in the shower which are irritated seborrheic keratoses left upper back left inner thigh and left posterior lateral leg. These are bleeding at this point. She also asked me about a new rash that she hasnoticed which are some red itchy spots on the thighs and the dorsal forearms. She does not have any known family history of psoriasis. The only medication change is doubling her co-Q10 which I recommended she go back to the single dose. Physical Exam Exam of scalp arms thighs posterior thighs back chest abdomen today. The right side of her scalphas adherent crusted scale close to the scalp and the hairs consistent with pityriasis amiantacea. She has numerous seborrheic keratoses throughout her body including on the left scalp which are more purply silver with a hair dye she has been using. She has 3 bleeding irritated seborrheic keratoses left upper back left inner thigh left lateral thigh. She also has an occasional quarter sized area of erythema on the dorsal thigh dorsal forearms most consistent with nummular eczema. 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 Printed out information online from [employer] to hand to her. Recommended alternating ketoconazole shampoo and Neutrogena T-cell shampoo daily lather up Allevyn for 10 minutes and then rinse well. She will only use to this area of the scalp. She does not need to use elsewhere. Risks and benefits including irritation were discussed as well as brittleness of hair. 2. Inflamed seborrheic keratosis X 3 Lesions treated with liquid nitrogen. Patient aware of possibility of infection, hypo or hyperpigmentation or scarring and did elect to proceed. They should inform me of any problems orrecurrences post treatment. Care sheet given. 3. Dermatitis Favor nummular eczema. Acute. Recommended Cetaphil or CeraVe twice a day. Also recommended triamcinolone 0.1% cream to red areas twice a day as needed. Risks and benefits including skin thinning were discussed. 4. Seborrheic keratoses Chronic, within normal limits today Problem List/Past Medical History Ongoing Actinic keratoses [...] PMR (polymyalgia rheumatica) Sinus problem Procedure/Surgical History •Removal - procedure| Service Date: 08/11/2023•left TCAR| Service [...] biopsy| Service Date: 04/22/2016•Hand surgery, left•Mohs micrographic surgery•Cholecystectom y•Tonsillectomy•Appendectomy•History of knee surgery Medications acetaminophen(Tylenol 8 HR [...] intl units oral capsule), See Instructions clobetasol topical(clobetasol 0.05% topical ointment), See Instructions clopidogrel(clopidogrel 75 mg oral tablet), 1 tab, PO, Daily cyanocobalamin(Vitamin B12) diphenhydrAMINE(Z-Sleep) docusate(Colace 100 mg oral capsule), 100 mg= 1 cap, PO, Daily fluticasone nasal(fluticasone 50 mcg/inh nasal spray), See Instructions, 5 refills ketoconazole topical(ketoconazole 2% topical cream), 1 appl, topical, bid, 2 refills ketoconazole topical(ketoconazole 2% topical shampoo), See Instructions, 11 refills losartan(losartan 50 mg oral tablet), 50 mg= 1 tab, PO, Daily, 3 refills multivitamin with minerals(PreserVision AREDS) omeprazole(omeprazole 20 mg oral delayed release capsule), 20 mg= 1 cap, PO, Daily, 3 refills triamcinolone topical(triamcinolone 0.1% topical cream), 1 appl, topical, bid, 2 refills ubiquinone(Co-Q10 100 mg oral capsule), 100 [...] Reviewed/Signed by: Makayla Blackwell MD Author Signature Dt/Tm:11/03/2024 11:07 AM Department of Dermatology [facility] Patient Care team information Care Team Personnel Name: GABRIELLE Smith Lynn Position: Physician Gas Appliance Servicer Exempt - Vasc Surg Member Role: Lifetime Relationship [address]: [address] [place] [address] [address] Telecom: [phone] Name: MICAELA Perry [place] Marie Position: Nurse Pract - Family Med Member Role: Primary Care Provider Address: [address] [facility] [address] Telecom: [phone] Care Team Related Persons Name: TODD MARTINEZ Insurance Providers Guarantor name: NINFA DURAN Health Plan Information #: 1 Payer: [employer] Member Number: [id number] Policy Number: NA Group Number: [id number] Health Plan Information #: 2 Payer: [employer] Member Number: [id number] Policy Number: NA Group Number: [id number]"
--- OUTSIDE RECORDS SUMMARY | 2024-12-22 09:23 | External Medical Summary | Continuity of Care Document ---
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 Name Role Phone Shanon Perry Primary Care Physician [phone] [id number] Date(s): 11/23/24 - 11/23/24 [facility] [address] [employer] [address] [phone] Encounter Diagnosis Dermatitis(Discharge Diagnosis) - 11/23/24 Pityriasis amiantacea(Discharge Diagnosis) - 11/23/24 Other specified papulosquamous disorders(Final) - Discharge Disposition: Home or Self Care Attending Physician: MD Rishi, Makayla Arroyo Encounter Type: Clinic Allergies, Adverse Reactions, Alerts Substance Criticality Severity Reaction Reaction Severity Status lisinopril cough Active Allergy Not found in Search 1 Nausea Active sulfa drugs Itching Rash Active Augmentin abdominal pain Activ e 1cantalope Assessment and Plan Extracted from: Title:Clinical Document Author:Mariah Beth Date :11/23/24 DERMATOLOGY OUTPATIENT NOTE Name: NINFA DURAN Patient Number: [id number] : 1940 Date of Service: 11/23/2024 Primary Care Physician: MICAELA Perry Katy Marie Chief Complaint: 3-week follow-up; multiple concerns HPI: The patient is a 83 year old female presenting today to follow up regarding her 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 She has been using alternating ketoconazole shampoo and Neutrogena T-cell shampoo daily without much improvement. There is a new patch of pityriasis amiantacea on her L scalp. Her irritated spot on her . She has hundreds of seborrheic keratoses, including an irritated one on her R lateral leg that she reports is painful when it catches on her clothing. Her well-demarcated, red, scaling, circular spots initially only on her thighs and dorsal forearms thought to be nummular dermatitis has increased in number and are now also on her back. She has been using triamcinolone cream 1% once a day on these spots after her shower without much improvement. Last visit, she had an inflamed SK frozen off which bled for hours. It looks well healed today. No family hx psoriasis. Review of Systems: Denies SOB/coughing/fever/abd pain/MSK pain/changes in bowel movements. Current Home Meds: (Last Updated 11/23 10:55) acetaminophen (Tylenol 8 HR Arthritis Pain 650 mg oral tablet, extended release) amLODIPine (amLODIPine 5 mg oral tablet) 5 mg PO Daily aspirin (aspirin 81 mg oral delayed release tablet) 81 mg PO Daily atorvastatin (atorvastatin 40 mg oral tablet) 1 tab PO Daily bimatoprost ophthalmic (Lumigan 0.01% ophthalmic solution) carvedilol (carvedilol 3.125 mg oral tablet) TAKE 1 TABLET BY MOUTH TWO TIMES DAILY cholecalciferol (Vitamin D3 5000 intl units oral capsule) 1 cap PO Daily clobetasol topical (clobetasol 0.05% topical ointment) APPLY A THIN FILM TO VULVA TWO TIMES DAILY FOR 14 DAYS clopidogrel (clopidogrel 75 mg oral tablet) 1 tab PO Daily cyanocobalamin (Vitamin B12) diphenhydrAMINE (Z-Sleep) docusate (Colace 100 mg oral capsule) 100 mg PO Daily PRN fluticasone nasal (fluticasone 50 mcg/inh nasal spray) USE 1 SPRAY IN EACH NOSTRIL DAILY ketoconazole topical (ketoconazole 2% topical cream) 1 appl topical bid To red scaly facial areas BID ketoconazole topical (ketoconazole 2% topical shampoo) Shampoo at least 3 times per week. losartan (losartan 50 mg oral tablet) 50 mg PO Daily multivitamin with minerals (PreserVision AREDS) omeprazole (omeprazole 20 mg oral delayed release capsule) 20 mg PO Daily triamcinolone topical (triamcinolone 0.1% topical cream) 1 appl topical bid To red rash BID PRN ubiquinone (Co-Q10 100 mg oral capsule) 100 mg PO Daily unlisted medication (Tumeric) 1 cap PO Daily Allergies and Sensitivities: lisinopril(cough) Augmentin(abdominal pain) Allergy Not found in Search(Nausea) sulfa drugs(Itching) sulfa drugs(Rash) Past Medical History: Problems: Dermatitis Inflamed seborrheic keratosis Pityriasis amiantacea Hypertension Seborrhea Knee pain Knee pain Body mass index [BMI] 32.0-32.9, adult BCC (basal cell carcinoma) Lichen sclerosus Seasonal allergies PERSONAL HISTORY OF OTHER MALIGNANT NEOPLASM OF SKIN Elevated cholesterol Gingival hypertrophy History of transcarotid artery revascularization (TCAR) Hyperlipidemia Hyperlipidemia RBBB plus LA hemiblock Osteoarthritis, generalized Laugier-Hunziker syndrome Bilateral carotid artery stenosis Presence of internal carotid stent Symptomatic stenosis of left carotid artery Essential tremor Acute upper respiratory infection Blackhead Milia Thumb pain History of basal cell carcinoma (BCC) Seborrheic keratoses Labial melanotic macule Gingival hypertrophy Actinic keratoses Female stress incontinence Chronic rhinitis Meade's cyst of knee GERD (gastroesophageal reflux disease) Lichen sclerosus Epidermal cyst Family history of melanoma BCC (basal cell carcinoma) Skin cyst Skin lesion SK (seborrheic keratosis) FAMILY HISTORY OF OTHER SPECIFIED MALIGNANT NEOPLASM PERSONAL HISTORY OF OTHER MALIGNANT NEOPLASM OF SKIN Elevated cholesterol Reflux Seasonal allergies OBJECTIVE Physical Exam General: in no acute distress Physical Exam: of scalp arms thighs posterior thighs back chest abdomen today. The right and left side of her scalp has adherent crusted scale close to the scalp and the hairs consistent with pityriasis amiantacea. The left-sided scalp is new. She has numerous raised seborrheic keratoses diffusely throughout her body. She has one irritated seborrheic keratoses right lower lateral thigh. She also has 1 - 4 inch areas of circular, scaling erythema diffusely over her body, worsened from last visit that were initially thought to be nummular dermatitis. In addition to the dorsal thigh and dorsal forearms from prior visit, she also has new rashes over her back, arms, legs, and abdomen. ASSESSMENT: PLAN: 1. Pityriasis amiantacea Little improvement from prior visit. A sample of hair and plaque were snipped and surrounding skin were dabbed with a q tip to be sent for fungal and bacterial wound culture. Continue alternating ketoconazole shampoo and Neutrogena T-cell shampoo. Patient was recommended to schedule f/u in 2-3 weeks to discuss biopsy results and management. 2. Possible nummular eczema, differential bullous pemphigoid, ? CTCL She has been using 1% triamcinolone cream once a day with little improvement. Will biopsy 2 locations - right superior upper arm and left superior clavicle. Both H&E and DIF for each location. The biopsy sites were outlined, prepped with antiseptic solution, draped, and anesthetized with of local anesthetic. Following this, a biopsy of the rash and a sample of the nearby non-inflamed skin were taken to be sent for pathology results. The areas of concern were then electrocauterized to stop bleeding. Vasoline was applied, the area was bandaged, and would care instructions were given. Patient is allowed to continue moisturizing areas of rash with CeraVe or Cetaphil. Schedule f/u in 2-3 weeks to discuss biopsy results and management. Due to the nature of the rash and the itching and the progression I elected to treat the patient with systemic steroid today. She is not diabetic. Risks and benefits including mood changes sleeplessness immunosuppression elevated blood sugars were all discussed. 60 mg IM Kenalog shot was given today. 3. Inflamed seborrheic keratosis Patient was informed these are benign and declined surgical removal and liquid nitrogen. 4. Seborrheic keratoses Chronic, many in number. Within normal limits today Immunizations Given and Recorded [...] vaccine 08/12/23 Given SARS-CoV-2 (COVID-19) mRNA-vacc - [id number] 06/29/23 Recorded SARS-CoV-2 mRNA (Pfizer 12+) bivalent [...] vaccine 10 07/13/98 Recorde d 1Result Comment: [facility] 2Result Comment: per [facility] 3Location History: [facility] 4Result Comment: 2022-11-08: Historical information-source unspecified [...] Daily, Disp# 90 tab, Refills: 3, Pharmacy: [id number] Start Date: 01/12/24 Status: Ordered Quantity: 90.0 Unit: tab Repeat number: 4 aspirin 81 mg oral delayed release tablet Start: 04/16/23 11:00:00 AM EDT, 1 tab, PO, Daily, Disp# 90 tab, Refills: 3, Pharmacy: [id number] Start Date: 04/16/23 Status: Ordered Quantity: 90.0 Unit: tab Repeat number: 4 Indication: Occlusion and stenosis of left carotid artery atorvastatin 40 mg oral tablet Start: 07/01/24 10:52:00 AM EDT, 1 tab, PO, Daily, Disp# 90 tab, Refills: 3, Pharmacy: [facility] Start Date: 07/01/24 Status: Ordered Quantity: 90.0 Unit: tab Repeat number: 1 carvedilol 3.125 mg oral tablet Start: 05/11/24 1:51:00 PM EDT, See Instructions, Disp# 180 tab, Refills: 3, TAKE 1 TABLET BY MOUTH TWO TIMES DAILY, Pharmacy: [facility] Start Date: 05/11/24 Status: Ordered Quantity: 180.0 Unit: tab Repeat number: 1 clobetasol 0.05% topical ointment Start: 01/20/23 11:12:00 AM EDT, See Instructions, Disp# 15 g, Refills: 2, APPLY A THIN FILM TO VULVA TWO TIMES DAILY FOR 14 DAYS, Pharmacy: [id number] Start Date: 01/20/23 Status: Ordered Quantity: 15.0 Unit: g Repeat number: 1 clopidogrel 75 mg oral tablet Start: 05/24/24 3:20:00 PM EDT, 1 tab, PO, Daily, Disp# 90 tab, Refills: 3, Pharmacy: [facility] Start Date: 05/24/24 Status: [...] 1 SPRAY IN EACH NOSTRIL DAILY, Pharmacy: [facility] Start Date: 05/29/23 Status: Ordered Quantity: 16.0 Unit: g Repeat number: 6 ketoconazole 2% topical cream Start: 04/08/24 1:44:00 PM EDT, 1 appl, topical, bid, Disp# 30 g, Refills: 2, To red scaly facial areas BID, Pharmacy: [facility] Start Date: 04/08/24 Status: Ordered Quantity: 30.0 Unit: g Repeat number: 3 ketoconazole 2% topical shampoo Start: 11/03/24 10:55:00 AM EST, See Instructions, Disp# 120 mL, Refills: 11, Shampoo at least 3 times per week., Pharmacy: [facility] Start Date: 11/03/24 Status: Ordered Quantity: 120.0 Unit: mL Repeat number: 12 losartan 50 mg oral tablet Start: 01/12/24 4:38:00 PM EDT, 1 tab, PO, Daily, Disp# 90 tab, Refills: 3, Pharmacy: [facility] Start Date: 01/12/24 Status: Ordered Quantity: 90.0 Unit: tab Repeat number: 4 Lumigan 0.01% ophthalmic solution Start: 05/16/20 4:19:00 PM EDT Start Date: 05/16/20 Status: Ordered Repeat number: 1 omeprazole 20 mg oral delayed release capsule Start: 08/02/24 12:54:00 PM EST, 1 cap, PO, Daily, Disp# 90 cap, Refills: 3, Pharmacy: [facility] Start Date: 08/02/24 Status: Ordered Quantity: 90.0 Unit: cap Repeat number: 4 PreserVision AREDS Start: 02/26/22 2:13:00 PM EDT Start Date: 02/26/22 Status: Ordered Repeat number: 1 triamcinolone 0.1% topical cream Start: 11/03/24 11:00:00 AM EST, 1 appl, topical, bid, Disp# 30 g, Refills: 2, To red rash BID PRN, Pharmacy: [id number] Start Date: 11/03/24 Status: [...] Status: Ordered Repeat number: 1 Mental Status 11/23/24 Barriers to Learning one year None evide nt Mandatory Health Literacy Documentation Yes Communication Barrier Present No Health Literacy Communication Barriers N ever Primary Language Tamazight Problem List Condition Confirmation Course Effective Dates [...] Effective Dates Health Status Clinical Service Informant Pityriasis amiantacea Discharge Diagnosis 11/23/24 Dermatitis Discharge Diagnosis 11/23/24 Procedures Procedure Date Related Diagnosis Body Site [...] ---- H$E and DIF 2toenail, with Podiatry [address] [place] [address] [facility], [address] [place] [address], [address] [place], [address] Mammography Report Patient: NINFA DURAN Date: 01/13/23 MR#: [id number]: [id number] QUARRY Acct ID:[id number]: Date: 1940[facility] Zip: [place] [address] Age: 82Location: MAMMO Sex: FRoom/Bed: Att Phy: [...] ultrasound, 07/26/2022 mammogram, and 07/25/2021 mammogram - [facility]. PATIENT CONSENT: After explaining the risks, [...] in CC from below compression. A tomosynthesis hop weigher view was obtained which demonstrates the 10 [...] computer. 8 samples were obtained using a ACTV8 9-gauge vacuum-assisted biopsy device. The specimen radiograph demonstrated several order entry representative microcalcifications, therefore, an hourglass shaped metallic marker was placed at the biopsy site. There was no immediate complication. Hemostasis was achieved after several minutes of manual compression. The samples were sent to pathology in an appropriately labeled container. On a separate upright [facility] tomosynthesis mammography unit, post procedure right CC [...] localization. 5Needle localization left breast biopsy. 6[facility] Impression: 1 Biopsy of a new 7.0 x 7.5 mm mass in the right 9:00 breast with heart-shaped metallic biopsy marker placed at the site 7Pathology: Sclerotic epithelial lesion with atypical ductal hyperplasia 8[facility] Impression: ACR BI-RADS CATEGORY 4: SUSPICIOUS, ULTRASOUND [...] of malignancy in the left breast 9[facility] Impression: ACR BI-RADS CATEGORY 3: PROBABLY BENIGN [...] polyps in transverse colon; non-bleeding hemorrhoids 11[facility] Impression: 1. AP Spine L1-L4 T-score: -1.3 2. Femur neck left T-score: -0.5 3. Femur neck right T-score: -0.4 4. Femur total left T-score: 0.4 5. Femur total right T-score: 0.2 6. Z-score: 0.5 BMD within normal limits relative to age 12[facility] Impression: ACR BI-RADS CATEGORY 3: PROBABLY BENIGN 1. Stable bilateral mammograms including postbiopsy changes in both breasts and stable groupings ofmicrocalcifications bilaterally. Another 12 month close follow-up bilateral diagnostic mammmogram including magnification views is recommended to ensure longer stability of bilateral breast calcifications given that they are not as well seen on the synthesized 2d mammography 13perineal body 14[facility] Impression: ACR BI-RADS CATEGORY 3: PROBABLY BENIGN 1. Stable bilateral mammograms including post biopsy changes in each breast and stable groupings offaint punctate and amorphous calcifications bilaterally. Another 12 month follow-up bilateral diagnostic mammogram including repeat spot magnification views is recommended to ensure longer stability of the calcifications 152 pieces right abdomen 16left shoulder 17tendon replacement Results Orders for Microbiology Reports Name Date Fungus Culture, Wound w Smear (CULTURE,F UNGUS(WOUND)) 11/23/24 Wound Culture w Smear (CULTURE, WOUND) Microbiology Reports TEST:Fungus.Culture, Wound STATUS:Unauthenticated BODY SITE: SOURCE:Wound COLLECTED DATE/TIME:11/23/24 11:49 AM Culture NO FUNGUS ISOLATED AFTER 2 DAYS TEST:Wound.Cx STATUS:Auth (Verified) BODY SITE: SOURCE:Wound COLLECTED DATE/TIME:11/23/24 11:49 AM Status FINAL 11/26/2024 Social History Social History Type Response Tobacco Former smoker 1 Smoking Status Never smoked cigaret oliver Sex Female Sex Representation Female (finding) 1Quit in 2000 Dermatology Outpatient Note * MD Blackwell Sara B: MODIFY MD Blackwell Sara B: MODIFY, MODIFY, MODIFY, MODIFY, MODIFY, MODIFY, MODIFY, MODIFY, MODIFY, MODIFY, MODIFY, MODIFY, MODIFY, MODIFY Event Display: Dermatology Outpt Note Authored Date: [id number] DERMATOLOGY OUTPATIENT NOTE Name: NINFA DURAN Patient Number: [id number] : 1940 Date of Service: 11/23/2024 Primary Care Physician: MICAELA Perry Katy Marie Chief Complaint: 3-week follow-up; multiple concerns HPI: The patient is a 83 year old female presenting today to follow up regarding her 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 She has been using alternating ketoconazole shampoo and Neutrogena T-cell shampoo daily without much improvement. There is a new patch of pityriasisamiantacea on her L scalp. Her irritated spot on her . She has hundreds of seborrheic keratoses, inc luding an irritated one on her R lateral leg that she reports is painful when it catches on her clothing. Her well-demarcated, red, scaling, circular spots initially only on her thighs and dorsal forearms thought to be nummular dermatitis has increased in number and are now also on her back. She has been using triamcinolone cream 1% once a day on these spots after her shower without much improvement. Last visit, she had an inflamed SK frozen off which bled for hours. It looks well healed today. No family hx psoriasis. Review of Systems: Denies SOB/coughing/fever/abd pain/MSK pain/changes in bowel movements. Current Home Meds: (Last Updated 11/23 10:55) acetaminophen (Tylenol 8 HR Arthritis Pain 650 mg oral tablet, extended release) amLODIPine (amLODIPine 5 mg oral tablet) 5 mg PO Daily aspirin (aspirin 81 mg oral delayed release tablet) 81 mg PO Daily atorvastatin (atorvastatin 40 mg oral tablet) 1 tab PO Daily bimatoprost ophthalmic (Lumigan 0.01% ophthalmic solution) carvedilol (carvedilol 3.125 mg oral tablet) TAKE 1 TABLET BY MOUTH TWO TIMES DAILY cholecalciferol (Vitamin D3 5000 intl units oral capsule) 1 cap PO Daily clobetasol topical (clobetasol 0.05% topical ointment) APPLY A THIN FILM TO VULVA TWO TIMES DAILY FOR 14 DAYS clopidogrel (clopidogrel 75 mg oral tablet) 1 tab PO Daily cyanocobalamin (Vitamin B12) diphenhydrAMINE (Z-Sleep) docusate (Colace 100 mg oral capsule) 100 mg PO Daily PRN fluticasone nasal (fluticasone 50 mcg/inh nasal spray) USE 1 SPRAY IN EACH NOSTRIL DAILY ketoconazole topical (ketoconazole 2% topical cream) 1 appl topical bid To red scaly facial areas BID ketoconazole topical (ketoconazole 2% topical shampoo) Shampoo at least 3 times per week. losartan (losartan 50 mg oral tablet) 50 mg PO Daily multivitamin with minerals (PreserVision AREDS) omeprazole (omeprazole 20 mg oral delayed release capsule) 20 mg PO Daily triamcinolone topical (triamcinolone 0.1% topical cream) 1 appl topical bid To red rash BID PRN ubiquinone (Co-Q10 100 mg oral capsule) 100 mg PO Daily unlisted medication (Tumeric) 1 cap PO Daily Allergies and Sensitivities: lisinopril(cough) Augmentin(abdominal pain) Allergy Not found in Search(Nausea) sulfa drugs(Itching) sulfa drugs(Rash) Past Medical History: Problems: Dermatitis Inflamed seborrheic keratosis Pityriasis amiantacea Hypertension Seborrhea Knee pain Knee pain Body mass index [BMI] 32.0-32.9, adult BCC (basal cell carcinoma) Lichen sclerosus Seasonal allergies PERSONAL HISTORY OF OTHER MALIGNANT NEOPLASM OF SKIN Elevated cholesterol Gingival hypertrophy History of transcarotid artery revascularization (TCAR) Hyperlipidemia Hyperlipidemia RBBB plus LA hemiblock Osteoarthritis, generalized Laugier-Hunziker syndrome Bilateral carotid artery stenosis Presence of internal carotid stent Symptomatic stenosis of left carotid artery Essential tremor Acute upper respiratory infection Blackhead Milia Thumb pain History of basal cell carcinoma (BCC) Seborrheic keratoses Labial melanotic macule Gingival hypertrophy Actinic keratoses Female stress incontinence Chronic rhinitis Meade's cyst of knee GERD (gastroesophageal reflux disease) Lichen sclerosus Epidermal cyst Family history of melanoma BCC (basal cell carcinoma) Skin cyst Skin lesion SK (seborrheic keratosis) FAMILY HISTORY OF OTHER SPECIFIED MALIGNANT NEOPLASM PERSONAL HISTORY OF OTHER MALIGNANT NEOPLASM OF SKIN Elevated cholesterol Reflux Seasonal allergies OBJECTIVE Physical Exam General: in no acute distress Physical Exam: of scalp arms thighs posterior thighs back chest abdomen today. The right and left side of her scalp has adherent crusted scale close to the scalp and the hairs consistent with pityriasis amiantacea. The left-sided scalp is new. She has numerous raised seborrheic keratoses diffusely throughout her body. She has one irritated seborrheic keratoses right lower lateral thigh. She also has 1 - 4 inch areas of circular, scaling erythema diffusely over her body, worsened from last visitthat were initially thought to be nummular dermatitis. In addition to the dorsal thigh and dorsal forearms from prior visit, she also has new rashes over her back, arms, legs, and abdomen. ASSESSMENT: PLAN: 1. Pityriasis amiantacea Little improvement from prior visit. A sample of hair and plaque were snipped and surrounding skin were dabbed with a q tip to be sent for fungal and bacterial wound culture. Continue alternating ketoconazole shampoo and Neutrogena T-cell shampoo. Patient was recommended to schedule f/u in 2-3 weeks to discuss biopsy results and management. 2. Possible nummular eczema, differential bullous pemphigoid, ? CTCL She has been using 1% triamcinolone cream once a day with little improvement. Will biopsy 2 locations - right superior upper arm and left superior clavicle. Both H&E and DIF for each location. The biopsy sites were outlined, prepped with antiseptic solution, draped, and anesthetized with of local anesthetic. Following this, a biopsy of the rash and a sample of the nearby non-inflamed skin were taken to be sent for pathology results. The areas of concern were then electrocauterized to stop bleeding. Vasoline was applied, the area was bandaged, and would care instructions were given. Patient is allowed to continue moisturizing areas of rash with CeraVe or Cetaphil. Schedule f/u in 2-3 weeks to discuss biopsy results and management. Due to the nature of the rash and the itching and the progression I elected to treat the patient with systemic steroid today. She is not diabetic. Risks and benefits including mood changes sleeplessness immunosuppression elevated blood sugars were all discussed. 60 mg IM Kenalog shot was given today. 3. Inflamed seborrheic keratosis Patient was informed these are benign and declined surgical removal and liquid nitrogen. 4. Seborrheic keratoses Chronic, many in number. Within normal limits today Electronic Signature on File CC: Makayla Blackwell MD [address] [place] [address] 2 [facility] [id number] Electronically Reviewed/Signed by: Mariah Beth Author Signature Dt/Tm:11/23/2024 12:31 PM Medical Student Electronically Reviewed/Signed by: Makayla Blackwell MD Cosigner Signature Dt/Tm: 11/23/2024 12:37 PM Department of Dermatology Patient Care team information Care Team Personnel Name: GABRIELLE Smith Lynn Position: Physician Gis Administrator Exempt - Vasc Surg Member Role: Lifetime Relationship Address: [address] [place] [address] [address] Telecom: [phone] Name: MICAELA Perry Katy Marie Position: Nurse Pract - Family Med Member Role: Primary Care Provider Address: [address] [facility] [address] Telecom: [phone] Care Team Related Persons Name: TODD MARTINEZ Insurance Providers Guarantor name: NINFA DRUAN Health Plan Information #: 1 Payer: [employer] Member Number: [id number] Policy Number: NA Group Number: [id number] Health Plan Information #: 2 Payer: [employer] Member Number: [id number] Policy Number: NA Group Number: NA
--- OUTSIDE RECORDS SUMMARY | 2024-12-22 09:23 | External Medical Summary | Continuity of Care Document ---
Author Name Unknown Organization [facility] [address] [id number] Care Team Providers Care Die Maker Stamping Name Role Phone Shanon Perry Primary Care Physician [phone] [id number] Date(s): 11/16/24 - 11/16/24 [facility] [address] [phone] Discharge Disposition: Home or Self Care Attending [...] vaccine 08/12/23 Given SARS-CoV-2 (COVID-19) mRNA-vacc - [id number] 06/29/23 Recorded SARS-CoV-2 mRNA (Pfizer 12+) bivalent [...] vaccine 10 07/13/98 Recorde d 1Result Comment: [facility] 2Result Comment: per [facility] 3Location History: [facility] 4Result Comment: 2022-11-08: Historical information-source unspecified [...] Daily, Disp# 90 tab, Refills: 3, Pharmacy: [facility] Start Date: 01/12/24 Status: Ordered Quantity: 90.0 Unit: tab Repeat number: 4 aspirin 81 mg oral delayed release tablet Start: 04/16/23 11:00:00 AM EDT, 1 tab, PO, Daily, Disp# 90 tab, Refills: 3, Pharmacy: [facility] Start Date: 04/16/23 Status: Ordered Quantity: 90.0 Unit: tab Repeat number: 4 Indication: Occlusion and stenosis of left carotid artery atorvastatin 40 mg oral tablet Start: 07/01/24 10:52:00 AM EDT, 1 tab, PO, Daily, Disp# 90 tab, Refills: 3, Pharmacy: [facility] Start Date: 07/01/24 Status: Ordered Quantity: 90.0 Unit: tab Repeat number: 1 carvedilol 3.125 mg oral tablet Start: 05/11/24 1:51:00 PM EDT, See Instructions, Disp# 180 tab, Refills: 3, TAKE 1 TABLET BY MOUTH TWO TIMES DAILY, Pharmacy: [facility] Start Date: 05/11/24 Status: Ordered Quantity: 180.0 Unit: tab Repeat number: 1 clobetasol 0.05% topical ointment Start: 01/20/23 11:12:00 AM EDT, See Instructions, Disp# 15 g, Refills: 2, APPLY A THIN FILM TO VULVA TWO TIMES DAILY FOR 14 DAYS, Pharmacy: [facility] Start Date: 01/20/23 Status: Ordered Quantity: 15.0 Unit: g Repeat number: 1 clopidogrel 75 mg oral tablet Start: 05/24/24 3:20:00 PM EDT, 1 tab, PO, Daily, Disp# 90 tab, Refills: 3, Pharmacy: [facility] Start Date: 05/24/24 Status: Ordered [...] 1 SPRAY IN EACH NOSTRIL DAILY, Pharmacy: [facility] Start Date: 05/29/23 Status: Ordered Quantity: 16.0 Unit: g Repeat number: 6 ketoconazole 2% topical cream Start: 04/08/24 1:44:00 PM EDT, 1 appl, topical, bid, Disp# 30 g, Refills: 2, To red scaly facial areas BID, Pharmacy: [facility] Start Date: 04/08/24 Status: Ordered Quantity: 30.0 Unit: g Repeat number: 3 ketoconazole 2% topical shampoo Start: 11/03/24 10:55:00 AM EST, See Instructions, Disp# 120 mL, Refills: 11, Shampoo at least 3 times per week., Pharmacy: [facility] Start Date: 11/03/24 Status: Ordered Quantity: 120.0 Unit: mL Repeat number: 12 losartan 50 mg oral tablet Start: 01/12/24 4:38:00 PM EDT, 1 tab, PO, Daily, Disp# 90 tab, Refills: 3, Pharmacy: [facility] Start Date: 01/12/24 Status: Ordered Quantity: 90.0 Unit: tab Repeat number: 4 Lumigan 0.01% ophthalmic solution Start: 05/16/20 4:19:00 PM EDT Start Date: 05/16/20 Status: Ordered Repeat number: 1 omeprazole 20 mg oral delayed release capsule Start: 08/02/24 12:54:00 PM EST, 1 cap, PO, Daily, Disp# 90 cap, Refills: 3, Pharmacy: [facility] Start Date: 08/02/24 Status: Ordered Quantity: 90.0 Unit: cap Repeat number: 4 PreserVision AREDS Start: 02/26/22 2:13:00 PM EDT Start Date: 02/26/22 Status: Ordered Repeat number: 1 triamcinolone 0.1% topical cream Start: 11/03/24 11:00:00 AM EST, 1 appl, topical, bid, Disp# 30 g, Refills: 2, To red rash BID PRN, Pharmacy: [facility] Start Date: 11/03/24 Status: Ordered [...] surgery Completed Tonsillectomy [facility], [address] [place] [address], [address] [place], [address] Mammography Report Patient: NINFA DURAN Date: 01/13/23 MR#: [id number]: [address] Acct ID:[id number]: Date: 1940[facility] Zip: [place] [address] Age: 82Location: MAMMO Sex: FRoom/Bed: Att Phy: [...] ultrasound, 07/26/2022 mammogram, and 07/25/2021 mammogram - [facility]. PATIENT CONSENT: After explaining the risks, benefits [...] in CC from below compression. A tomosynthesis travel cota view was obtained which demonstrates the 10 [...] computer. 8 samples were obtained using a Myxer 9-gauge vacuum-assisted biopsy device. The specimen radiograph demonstrated several screening representative microcalcifications, therefore, an hourglass shaped metallic [...] localization. 4Needle localization left breast biopsy. 5[facility] Impression: 1 Biopsy of a new 7.0 x 7.5 mm mass in the right 9:00 breast with heart-shaped metallic biopsy marker placed at the site 6Pathology: Sclerotic epithelial lesion with atypical ductal hyperplasia 7[facility] Impression: ACR BI-RADS CATEGORY 4: SUSPICIOUS, ULTRASOUND [...] of malignancy in the left breast 8[facility] Impression: ACR BI-RADS CATEGORY 3: PROBABLY BENIGN [...] polyps in transverse colon; non-bleeding hemorrhoids 10[facility] Impression: 1. AP Spine L1-L4 T-score: -1.3 2. Femur neck left T-score: -0.5 3. Femur neck right T-score: -0.4 4. Femur total left T-score: 0.4 5. Femur total right T-score: 0.2 6. Z-score: 0.5 BMD within normal limits relative to age 11[facility] Impression: ACR BI-RADS CATEGORY 3: PROBABLY BENIGN 1. Stable bilateral mammograms including postbiopsy changes in both breasts and stable groupings ofmicrocalcifications bilaterally. Another 12 month close follow-up bilateral diagnostic mammmogram including magnification views is recommended to ensure longer stability of bilateral breast calcifications given that they are not as well seen on the synthesized 2d mammography 12perineal body 13[facility] Impression: ACR BI-RADS CATEGORY 3: PROBABLY BENIGN [...] Personnel Name: GABRIELLE Smith Lynn Position: Physician Adding Machine Mechanic Exempt - Vasc Surg Member Role: Lifetime Relationship Address: [address] [place] [address] Telecom: [phone] Name: MICAELA Perry Katy Marie Position: Nurse Pract - Family Med Member Role: Primary Care Provider Address: [address] [place] [address] Telecom: [phone] Care Team Related Persons Name: TODD MARTINEZ Insurance Providers Guarantor name: NINFA DURAN Health Plan Information #: 1 Payer: ANGELINE Member Number: [id number] Policy Number: NA Group Number: [id number] Health Plan Information #: 2 Payer: AENAVEED Member Number: [id number] Policy Number: NA Group Number: [id number]
--- OUTSIDE RECORDS SUMMARY | 2024-12-22 09:23 | External Medical Summary | Continuity of Care Document ---
Author Name Unknown Organization [facility] [address] [facility] Address [address] [place], [place] [id number] Care Team Providers Care Biomedical Manager Name Role Phone Shanon Perry Primary Care Physician [phone] [id number] Date(s): 11/03/24 - 11/03/24 [facility] [address], [address] [place] [address] [phone] Encounter Diagnosis Murmur(Discharge Diagnosis) - 11/03/24 Bifascicular block(Discharge Diagnosis) - 11/03/24 Sinus tachycardia(Discharge Diagnosis) - 11/03/24 HLD (hyperlipidemia)(Discharge Diagnosis) - 11/03/24 Discharge Disposition: Home or Self Care Attending Physician: MICAELA Fields Sarah A Encounter Type: Clinic Allergies, Adverse Reactions, Alerts Substance Criticality Severity Reaction Reaction Severity Status lisinopril cough Active Allergy Not found in Search 1 Nausea Active sulfa drugs Itching Rash Active Augmentin abdominal pain Activ e 1cantalope Assessment and Plan Extracted from: Title:Cardiology Office Visit Note Author:MICAELA Merlos rd, Sarah A Date:11/03/24 Impression: 1. RBBB with LAFB 2. TIA 04/2023 S/P Left TCAR 3. Echocardiogram 10/2022 showing normal ejection fraction of 60%, no wall motion abnormalities, mild to moderate concentric left ventricular hypertrophy, trace aortic insufficiency, mild mitral valve regurgitation, mild tricuspid but valve regurgitation, normal PASP 4. Hypertension 5. Stress echo negative for ischemia, achieving 143% of predicted with 6 METS, hypertensive response to exercise. (10/2022) 6. Hyperlipidemia 7. Right TKR 04/2024 Ms. Duran continues to demonstrate bifascicular block on EKG. She had questions about this physiology which I explained in detail. We reviewed symptoms of worsening conduction disease that she would want to let us know about. Her heart rate is always mildly tachycardic and continues to be so. She admits that she does not drink enough water and was encouraged to do so. She declines increasing her Coreg. She has a new murmur. I will have her repeat an echo. Her lipids are at goal. She will return to the clinic in 6 months. Immunizations Given and Recorded Vaccine Date Status [...] vaccine 08/12/23 Given SARS-CoV-2 (COVID-19) mRNA-vacc - [id number] 06/29/23 Recorded SARS-CoV-2 mRNA (Pfizer 12+) bivalent [...] vaccine 10 07/13/98 Recorde d 1Result Comment: [facility] 2Result Comment: per [facility] 3Location History: [facility] 4Result Comment: 2022-11-08: Historical information-source unspecified 5Result [...] Disp# 90 tab, Refills: 3, Pharmacy: [facility] Start Date: 01/12/24 Status: Ordered Quantity: 90.0 Unit: tab Repeat number: 4 aspirin 81 mg oral delayed release tablet Start: 04/16/23 11:00:00 AM EDT, 1 tab, PO, Daily, Disp# 90 tab, Refills: 3, Pharmacy: [facility] Start Date: 04/16/23 Status: Ordered Quantity: 90.0 Unit: tab Repeat number: 4 Indication: Occlusion and stenosis of left carotid artery atorvastatin 40 mg oral tablet Start: 07/01/24 10:52:00 AM EDT, 1 tab, PO, Daily, Disp# 90 tab, Refills: 3, Pharmacy: [facility] Start Date: 07/01/24 Status: Ordered Quantity: 90.0 Unit: tab Repeat number: 1 carvedilol 3.125 mg oral tablet Start: 05/11/24 1:51:00 PM EDT, See Instructions, Disp# 180 tab, Refills: 3, TAKE 1 TABLET BY MOUTH TWO TIMES DAILY, Pharmacy: [facility] Start Date: 05/11/24 Status: Ordered Quantity: 180.0 Unit: tab Repeat number: 1 clobetasol 0.05% topical ointment Start: 01/20/23 11:12:00 AM EDT, See Instructions, Disp# 15 g, Refills: 2, APPLY A THIN FILM TO VULVA TWO TIMES DAILY FOR 14 DAYS, Pharmacy: [facility] Start Date: 01/20/23 Status: Ordered Quantity: 15.0 Unit: g Repeat number: 1 clopidogrel 75 mg oral tablet Start: 05/24/24 3:20:00 PM EDT, 1 tab, PO, Daily, Disp# 90 tab, Refills: 3, Pharmacy: [facility] Start Date: 05/24/24 Status: Ordered [...] SPRAY IN EACH NOSTRIL DAILY, Pharmacy: [facility] Start Date: 05/29/23 Status: Ordered Quantity: 16.0 Unit: g Repeat number: 6 ketoconazole 2% topical cream Start: 04/08/24 1:44:00 PM EDT, 1 appl, topical, bid, Disp# 30 g, Refills: 2, To red scaly facial areas BID, Pharmacy: [facility] Start Date: 04/08/24 Status: Ordered Quantity: 30.0 Unit: g Repeat number: 3 ketoconazole 2% topical shampoo Start: 11/03/24 10:55:00 AM EST, See Instructions, Disp# 120 mL, Refills: 11, Shampoo at least 3 times per week., Pharmacy: [facility] Start Date: 11/03/24 Status: Ordered Quantity: 120.0 Unit: mL Repeat number: 12 losartan 50 mg oral tablet Start: 01/12/24 4:38:00 PM EDT, 1 tab, PO, Daily, Disp# 90 tab, Refills: 3, Pharmacy: [facility] Start Date: 01/12/24 Status: Ordered Quantity: 90.0 Unit: tab Repeat number: 4 Lumigan 0.01% ophthalmic solution Start: 05/16/20 4:19:00 PM EDT Start Date: 05/16/20 Status: Ordered Repeat number: 1 omeprazole 20 mg oral delayed release capsule Start: 08/02/24 12:54:00 PM EST, 1 cap, PO, Daily, Disp# 90 cap, Refills: 3, Pharmacy: [facility] Start Date: 08/02/24 Status: Ordered Quantity: 90.0 Unit: cap Repeat number: 4 PreserVision AREDS Start: 02/26/22 2:13:00 PM EDT Start Date: 02/26/22 Status: Ordered Repeat number: 1 triamcinolone 0.1% topical cream Start: 11/03/24 11:00:00 AM EST, 1 appl, topical, bid, Disp# 30 g, Refills: 2, To red rash BID PRN, Pharmacy: [facility] Start Date: 11/03/24 Status: Ordered [...] Literacy Communication Barriers N ever Primary Language Albanian Problem List Condition Confirmation Course Effective Dates [...] Effective Dates Health Status Clinical Service Informant Murmur Discharge Diagnosis 11/03/24 Non-Specified HLD (hyperlipidemia) Discharge Diagnosis 11/03/24 Non-Specified Bifascicular block Discharge Diagnosis 11/03/24 Non-Specified Sinus tachycardia Discharge Diagnosis 11/03/24 Non-Specified Procedures Procedure Date Related Diagnosis Body Site [...] surgery Completed Tonsillectomy Completed 1toenail, with Podiatry [address] [place] [address] [facility], [address] [facility], [address] [place], [address] Mammography Report Patient: NINFA DURAN Date: 01/13/23 MR#: [id number]: [address] Acct ID:[id number]: Date: 1940[facility] Zip: [place] [address] Age: 82Location: MAMMO Sex: FRoom/Bed: Att Phy: [...] ultrasound, 07/26/2022 mammogram, and 07/25/2021 mammogram - [facility]. PATIENT CONSENT: After explaining the risks, benefits [...] in CC from below compression. A tomosynthesis crm system administrator view was obtained which demonstrates the 10 [...] computer. 8 samples were obtained using a Verdezyne 9-gauge vacuum-assisted biopsy device. The specimen radiograph demonstrated several wholesale representative microcalcifications, therefore, an hourglass shaped metallic [...] localization. 4Needle localization left breast biopsy. 5[facility] Impression: 1 Biopsy of a new 7.0 x 7.5 mm mass in the right 9:00 breast with heart-shaped metallic biopsy marker placed at the site 6Pathology: Sclerotic epithelial lesion with atypical ductal hyperplasia 7[facility] Impression: ACR BI-RADS CATEGORY 4: SUSPICIOUS, ULTRASOUND [...] of malignancy in the left breast 8[facility] Impression: ACR BI-RADS CATEGORY 3: PROBABLY BENIGN [...] polyps in transverse colon; non-bleeding hemorrhoids 10[facility] Impression: 1. AP Spine L1-L4 T-score: -1.3 2. Femur neck left T-score: -0.5 3. Femur neck right T-score: -0.4 4. Femur total left T-score: 0.4 5. Femur total right T-score: 0.2 6. Z-score: 0.5 BMD within normal limits relative to age 11[facility] Impression: ACR BI-RADS CATEGORY 3: PROBABLY BENIGN 1. Stable bilateral mammograms including postbiopsy changes in both breasts and stable groupings ofmicrocalcifications bilaterally. Another 12 month close follow-up bilateral diagnostic mammmogram including magnification views is recommended to ensure longer stability of bilateral breast calcifications given that they are not as well seen on the synthesized 2d mammography 12perineal body 13[facility] Impression: ACR BI-RADS CATEGORY 3: PROBABLY BENIGN 1. Stable bilateral mammograms including post biopsy changes in each breast and stable groupings offaint punctate and amorphous calcifications bilaterally. Another 12 month follow-up bilateral diagnostic mammogram including repeat spot magnification views is recommended to ensure longer stability of the calcifications 142 pieces right abdomen 15left shoulder 16tendon replacement Vital Signs Most recent to oldest [Reference Range]: 1 Patient Weight 75 kg (11/03/24 10:50 AM) Heart Rate 92 bpm (11/03/24 10:50 AM) Respiratory Rate 18 br/min (11/03/24 10:50 AM) Blood Pressure 118/68mmHg (11/03/24 10:50 AM) BP Location # 1 Left Arm (11/03/24 10:50 AM) Social History Social History Type Response Tobacco Former smoker 1 Smoking Status Never smoked cigaret oliver Sex Female Sex Representation Female (finding) 1Quit in 2000 EKG study * Contributor_system, MUSE01: VERIFY, PERFORM Event Display: EKG Authored Date: Please click on link to see image. Cardiology Outpatient Note * MICAELA Fields Sarah A: PERFORM Event Display: Cardiology Outpt Note Authored Date: Primary Care Provider MICAELA Perry Katy Marie Chief Complaint f/u Home BP 130s/70s HR 90s and higher SOB having occasional dizziness and lightheaded -1 fallsdue to cat no syncopal episodes denies chest pain , heart racing or Palpations, no edema –No unusual bleeding History of Present Illness Ms. Duran presents for follow up of her history of bifascicular block, hld, carotid artery disease, and htn. She is still sob with things like showering and going up the steps. She described the same at our visit in 2022 and she agrees this is unchanged. No chest pain. No edema. No palpitations. Review of Systems All other systems reviewed and negative except as discussed in the HPI Physical Exam Vitals & Measurements HR: 92 (Monitored) RR: 18 BP: 118/68 SpO2: 98% WT: 75 kg WT: 75.000 kg (Dosing) Physical Examination General: Alert and oriented, No acute distress. Respiratory: Lungs are clear to auscultation, Respirations are non-labored. Cardiovascular: Normal rate, Regular rhythm, 2/6 lusb systolic murmur, No edema, no carotid bruits to auscultation bilaterally. Integumentary: Warm, Dry, [place] Neurologic: Alert, Oriented. Cognition and Speech: Speech clear and coherent. Psychiatric: Cooperative, Appropriate mood & affect. Assessment/Plan Impression: 1. RBBB with LAFB 2. TIA 04/2023 S/P Left TCAR 3. Echocardiogram 10/2022 showing normal ejection fraction of 60%, no wall motion abnormalities, mild to moderate concentric left ventricular hypertrophy, trace aortic insufficiency, mild mitral valveregurgitation, mild tricuspid but valve regurgitation, normal PASP 4. Hypertension 5. Stress echo negative for ischemia, achieving 143% of predicted with 6 METS, hypertensive response to exercise. (10/2022) 6. Hyperlipidemia 7. Right TKR 04/2024 Ms. Duran continues to demonstrate bifascicular block on EKG. She had questions about this physiology which I explained in detail. We reviewed symptoms of worsening conduction disease that she would want to let us know about. Her heart rate is always mildly tachycardic and continues to be so. She admits that she does not drink enough water and was encouraged to do so. She declines increasing her Coreg. She has a new murmur. I will have her repeat an echo. Her lipids are at goal. She will return to the clinic in 6 months. Problem List/Past Medical History Ongoing Actinic keratoses [...] Status Family Member(s) Electronic Signature on File CC: MICAELA Lyn [address] [id number] Electronically Reviewed/Signed by: MICAELA Lira Author Signature Dt/Tm:11/03/2024 04:28 PM [facility] Patient Care team information Care Team Personnel Name: GABRIELLE Smith Lynn Position: Physician Quality Control Engineer Exempt - Vasc Surg Member Role: Lifetime Relationship Address: [address] [place] [address] YouTab: [phone] Name: MICAELA Perry Katy Marie Position: Nurse Pract - Family Med Member Role: Primary Care Provider Address: [address] [place] [address] Telecom: [phone] Care Team Related Persons Name: TODD MARTINEZ Insurance Providers Guarantor name: NINFA DURAN Health Plan Information #: 1 Payer: ANGELINE Member Number: [id number] Policy Number: NA Group Number: [id number] Health Plan Information #: 2 [facility] Member Number: [id number] Policy Number: NA Group Number: [id number]"
--- NOTE | 2024-12-22 10:19 | Electrocardiogram Report ---
Test Reason : Blood Pressure : */* mmHG Vent. Rate : 92 BPM Atrial Rate : 92 BPM P-R Int : 144 ms QRS Dur : 136 ms QT Int : 360 ms P-R-T Axes : 54 -49 43 degrees QTcB Int : 445 ms Normal sinus rhythm Right bundle branch block Left anterior fascicular block Bifascicular block Minimal voltage criteria for LVH, may be normal variant Abnormal ECG When compared with ECG of 03-Sep-2023 11:53, No significant change was found Confirmed by Gt Hernandez ([id number]) on 12/22/2024 10:18:35 AM Referred By: REFERRED SELF Confirmed By: Gt Hernandez
--- NOTE | 2024-12-22 11:54 | History & Physical Report ---
Date of Service December 22, 2024 Assessment & Plan (1) TIA (transient ischemic attack): (2) Mild dehydration: (3) HTN (hypertension): Plan Patient is an 83-year-old female with past medical history of previous TIA, s/p Left TCAR 2022 on aspirin and Plavix, breast cancer s/p lumpectomy, hyperlipidemia, GERD, hypertension. Patient presented with persistent dizziness and an episode of vision changes that lasted for several minutes, similar to her previous TIA. Head CTA and neck CTA essentially negative. Patient is being admitted for stroke workup including MRI. #TIA - Suspected TIA as symptoms have resolved. History of TIA with similar symptoms. Head and neck CTA negative. No PFO noted on previous echoes. - telestroke recommending admission for stroke workup - stroke without TNK order set - active ROM, Q4H neuro checks - Continue daily baby aspirin and Plavix - increase atorvastatin 40 Mg daily to 80 Mg daily, lipid panel order and adjust as needed - Allow for permissive hypertension with goal parameters 220/110 until MRI resulted - if no acute changes seen, decrease systolic <180 - MRI brain ordered - lipid panel and A1C with AM labs - defer repeat echo as no PFO noted on previous echoes, just had echocardiogram approximately 1 month ago with Nikole. board of education secretary working to obtain records. #mild dehydration - 2/2 poor po intake. Contributing to above. BUN/Cr mildly elevated (24.7). Received 1L NSS in ED. - promote oral hydration - repeat BMP with AM labs #HTN stable Holding amlodipine, carvedilol, losartan with permissive hypertension #GERD - stable -continue PPI #breast CA - s/p lumpectomy. Yearly MRI, follows with Dr. Monterroso CCP. No current treatment. VTE ppx: SCDs, low risk and stroke workup Dispo:med/tele obs; anticipate dc home 12/23 Admission and Anticipated Discharge Date Admission Date: 12/22/24 History of Present Illness Chief Complaint: vertigo Primary Care Provider: Shanon Perry Patient is an 83-year-old female with past medical history of previous TIA, s/p LCA stent 2022 on aspirin and Plavix, breast cancer s/p lumpectomy, hyperlipidemia, GERD, hypertension. Patient presented with persistent dizziness and an episode of vision changes that lasted for several minutes, similar to her previous TIA. Head CTA and neck CTA essentially negative. Patient is being admitted for stroke workup including MRI. No stroke alert called given symptoms outside of TNK window. Telestroke recommending admission with stroke workup. Patient seen at bedside with her friend present. She stated she has been stressed for several weeks given her was in the hospital and just disch arged home yesterday. She feels as though she is dehydrated and not drinking enough fluids recently, BUN/creatinine elevated and received 1L NSS bolus in ED. Patient stated that yesterday morning she woke up and just did not feel right with lightheadedness. The lightheadedness is still persistent and she thought that was secondary to dehydration. However she did note an episode of vision changes in which she felt like she missing parts of her vision. She did not see dots or flashes however when she looked at something sections were missing. When she had a TIA in 2022 she was driving and when she looked at the speed limits on the center of it was missing. Patient also noted in October she had an episode where she was watching TV and it became very weepy for several minutes. Patient denies any other strokelike symptoms, denies headaches, slurred speech, facial droop, numbness, tingling, ambulatory dysfunction. She denies any recent flulike symptoms, nausea, vomiting, diarrhea. She was a former smoker but quit in 1999. She drinks 1 glass of wine with dinner daily. She does not use oxygen at baseline. She did not get any home medications today and is due for her aspirin and Plavix. She wishes to be DNR/DNI. Patient is agreeable to observation status with MRI. She stated she had an echocardiogram in the past month with nikole, unit support representative to work on obtaining records. Allergies Allergy/AdvReac Type Severity Reaction Status Date / Time Sulfa (Sulfonamide Allergy Intermediate Rash Verified 12/22/24 08:52 Antibiotics) melon AdvReac Mild Nausea Verified 12/22/24 08:52 lisinopril AdvReac Unknown Cough Verified 12/22/24 08:52 cantaloupe AdvReac Nausea Verified 12/22/24 08:52 Home Medications Medication Instructions Recorded Confirmed Type vitamin B complex 1 tab PO QAM 08/29/18 12/22/24 History carvedilol 3.125 mg tablet 3.125 mg PO BID 11/12/22 12/22/24 History cholecalciferol (vitamin D3) 125 125 mcg PO QAM 11/12/22 12/22/24 History mcg (5,000 unit) tablet (Vitamin D3) bimatoprost 0.01 % eye drops 1 drp ophthalmic (eye) DIRECTED 12/25/22 12/22/24 History (Lumigan) turmeric root extract 500 mg tablet 1,000 mg PO QAM 04/10/23 12/22/24 History atorvastatin 40 mg tablet 40 mg PO HS 04/17/23 12/22/24 History clopidogrel 75 mg tablet 75 mg PO QAM 04/17/23 12/22/24 History vitamins A,C,T-hhob-igjjks 2,148 2 tab PO BID 02/18/24 12/22/24 History mcg-113 mg-45 mg-17.4 mg tablet (PreserVision AREDS) Eye Ointment 1 applic OPB DIRECTED 12/22/24 12/22/24 History amlodipine 5 mg tablet 5 mg PO DAILY 12/22/24 12/22/24 History aspirin 81 mg tablet,delayed 81 mg PO DAILY 12/22/24 12/22/24 History release clobetasol 0.05 % shampoo 1 applic topical HS 12/22/24 12/22/24 History fluocinonide 0.05 % topical cream 1 applic topical BID PRN Red Spots 12/22/24 12/22/24 History ketoconazole 2 % shampoo 1 applic topical 3XWK 12/22/24 12/22/24 History losartan 50 mg tablet 50 mg PO DAILY 12/22/24 12/22/24 History magnesium 250 mg tablet 250 mg PO DAILY 12/22/24 12/22/24 History omega 9-pqd-aeb-fish oil 900 1 cap PO DAILY 12/22/24 12/22/24 History mg-1,400 mg capsule,delayed release omeprazole 20 mg capsule,delayed 20 mg PO DAILY 12/22/24 12/22/24 History release triamcinolone acetonide 0.1 % 1 applic topical BID PRN Red Rash 12/22/24 12/22/24 History topical cream Past Med/Surg History Problem List (Updated 12/22/24 @ 13:03 by Rodolfo Hubbard DO) Dizziness (Acute) Mild dehydration HTN (hypertension) TIA (transient ischemic attack) (Acute 04/2023) 04/2023 > Left TCAR 04/21/23 Status post right knee replacement (~04/2024) Plantar fasciitis Acid reflux Right knee DJD Lichen sclerosus et atrophicus Medical History Ductal carcinoma in situ (DCIS) of right breast History of colon polyps Degenerative arthritis Internal carotid artery stent present (04/2023) Tremor of both hands HTN (hypertension) TIA (transient ischemic attack) (04/2023) Sleep apnea Bifascicular block History of COVID-19 GERD (gastroesophageal reflux disease) History of polymyalgia rheumatica Hyperlipidemia Surgical History S/P lumpectomy, right breast History of transcarotid artery revascularization (TCAR) (04/21/23) H/O right breast biopsy (11/05/22) Nausea and vomiting after administration of anesthetic agent History of benign breast biopsy History of hand surgery History of colonoscopy with polypectomy History of appendectomy History of cholecystectomy History of wisdom tooth extraction History of tonsillectomy History of esophagogastroduodenoscopy (EGD) History of bilateral cataract extraction Family History Mother Stroke Sister Cancer of kidney Pulmonary embolism Father Pacemaker Brother Coronary heart disease S/P CABG x 5 Skin cancer (melanoma) Other Family history non-contributory No family history of adverse response to anesthesia Denies family history of Ovarian cancer Breast cancer Colorectal cancer Social History Smoking Status: Former smoker Tobacco Type: Cigarettes Age Started Using Tobacco: 19; Age Quit Using Tobacco: 60; packs per day: 1; Second Hand Exposure: No; Do You Dip or Chew Tobacco: No; Hx Alcohol Use: Yes Alcohol type: wine Alcohol Intake Frequency: 2-3 x/Week Preferred Language: Bulgarian Communication Ability: Effective Weapons Specialist Required: No Beliefs That Will Affect Care: None marital status: Current Living Situation: Spouse current occupational status: retired Feels Safe at Home: Yes Assistive Devices: Walker Review of Systems Review of Systems: See HPI Physical Exam Physical Exam: The patient is awake, alert and oriented 3, well developed and well nourished, normocephalic and atraumatic, in no acute distress. Non-toxic appearing. HEENT- EOMI, mucous membranes moist. Hearing grossly intact. Heart-normal S1 and S2. No murmurs, rubs or gallops. Lungs-clear bilaterally, no respiratory distress, no accessory muscle use. Abdomen-normal bowel sounds and soft. No ascites noted. Non-tender. Extremities- no clubbing, cyanosis, or edema. Rheumatologic-normal range of motion. Psychiatric-normal affect. Eyes: PERRL and EOM intact bilaterally; no nystagmus Neurologic: PERRL, EOMI, accommodation nl, no face palsy, no dysarthria Results & Data Results & Data Vital Signs (Past 12 Hours) Vital Signs Temp Pulse Pulse Resp BP BP Pulse Ox 12/22/24 11:14 99 H 20 134/69 98 12/22/24 10:30 132/77 12/22/24 10:00 94 H 21 172/100 H 97 12/22/24 09:29 187/88 H 12/22/24 08:17 79 12/22/24 08:00 80 24 148/50 H 99 12/22/24 07:30 12/22/24 07:18 36.8 C 90 20 169/70 H 98 O2 Del Method 12/22/24 11:14 Room Air 12/22/24 10:30 12/22/24 10:00 Room Air 12/22/24 09:29 12/22/24 08:17 12/22/24 08:00 12/22/24 07:30 Room Air 12/22/24 07:18 Room Air Laboratory Results reviewed CBC and CMP Diagnostic Findings reviewed head CTA, neck CTA, CXR Medications Administered EDAntivert 25 Mg p.o., 1L NSS bolus ECG Additional Comments: NSR, RBBB (known history of) Rate 92 QTc 445 Code Status & VTE Plan Code Status DNR/DNI VTE Prophylaxis Plan VTE Prophylaxis will be ordered: Yes Supervising Physician Co-Signing Physician Notes Patient was seen and examined independently I discussed the case with Marisa JESSICA I reviewed pertinent past medical social family history and also the plan of care and agree with the plan of care. Patient is having intermittent outpatient symptoms consistent with her previous history of TIA. At that time proximately 1 year ago she was placed on dual antiplatelet therapy and continues on the same. Patient woke up this morning having episodes of disequilibrium lightheadedness which was not vertiginous. This reminds her of her previous symptoms. 1 day prior she had visual changes of what sounds kind like scotomata on her left eye with those wavy line that blurred her visual acuity. She also notes that the symptoms have been intermittent over the last 2 months. In the emergency department she had no acute changes seen on brain imaging. His room physician contacted teleroke with an on-call stroke alert to review the time being outside of the recommended interval. Recommendations for inpatient evaluation including MRI and continuing dual antiplatelet therapy escalating her statin to higher dose. Physical examination shows her to have no facial asymmetry or drooping no palmar drift equal symmetrical strength and sensation. Cardiac exam is regular without murmurs lungs are clear Assessment impossibly TIA versus CVA. Patient had an echocardiogram 1 month prior with him to get those results patient will have MRI of her brain. Patient will continue on dual antiplatelet therapy but decisions on escalating care will be made after results of additional testing. Any exceptions will be noted below PG Care Time/CCT Total # of Minutes Spent Total Time Spent with Patient: Total time spent is greater than 50% in coordination of care (as documented) at patient's floor/unit and/or counseling patient: Coding Level of Care Code 64357 INT INP/OBS CARE 3/75MIN Diagnoses TIA (transient ischemic attack) G45.9 Mild dehydration E86.0 HTN (hypertension) I10
--- NOTE | 2024-12-22 13:36 | Magnetic Resonance Report ---
MR brain wo con HISTORY: 83 years-old Female stroke workup acute stroke like symptoms COMPARISON: CTA head of same day, brain MRI 04/10/2023. TECHNIQUE: Multiplanar multisequence MRI of the brain was obtained without IV contrast. FINDINGS: Study is mildly motion degraded. Midline structures are unremarkable. Degenerative changes of the cer vical spine. No acute intracranial hemorrhage, midline shift, abnormal extra-axial collection, hydroc ephalus or intra-axial mass. Involutional changes with mild to moderate T2/FLAIR hyperintense foci ag ain noted throughout the white matter, unchanged from prior. Cerebral venous sinuses and major arterial flow voids appear patent. Skull, orbits and soft tissues a re unremarkable. Prior bilateral lens repair. IMPRESSION: 1. No acute intracranial abnormality. No acute or subacute infarct. 2. Involutional changes with chronic microvascular ischemic disease redemonstrated. ACT 112: Negative or not required by law. The above report was generated using voice recognition software. It may contain grammatical, syntax o r spelling errors. Electronically signed by: Zhang Garibay M.D. 12/22/2024 1:35 PM
[2024-12-22] MEDS ORDERED: PHARMACIST DISCHARGE MED REC CONSULT PRN (14:21)
[2024-12-22] MEDS ORDERED: MELATONIN 3 MG TAB PO PRN (14:21)
[2024-12-22] MEDS ORDERED: DOCUSATE SODIUM 100 MG CAP PO PRN (14:21)
[2024-12-22] MEDS ORDERED: ACETAMINOPHEN 325 MG TAB PO PRN (14:21)
[2024-12-22] MEDS ORDERED: ONDANSETRON INJ 2 MG/ML 2 ML VIAL IV PRN (14:21)
[2024-12-22] MEDS: PANTOprazole 40 MG TAB PO SCH (16:20)
[2024-12-22] MEDS: ATORVASTATIN 40 MG TAB PO SCH (16:20)
[2024-12-22] MEDS: CLOPIDOGREL BISULFATE 75 MG TAB PO SCH (16:20)
[2024-12-22] MEDS: ASPIRIN 81 MG ECTAB PO SCH (16:52)
[2024-12-22] MEDS: BIMATOPROST 0.01% OP SOLN 2.5 ML BTL OP SCH (20:07)
[2024-12-23 07:39] VITALS: O2SAT 96
[2024-12-23 08:36] LABS: Calcium 9.2 mg/dl (8.6-10.3); Potassium 4.2 mmol/L (3.5-5.1)
[2024-12-23 08:42] LABS: BUN Creatinine Ratio 25.7 (10-20); Chol HDL Ratio 1.8 (0-5); Creatinine Clr Calc Pharmacy 54.3 ml/min
[2024-12-23 08:53] LABS: Estimated Average Glucose 103 mg/dl; Hemoglobin A1C 5.2 % (4.5-5.6)
--- NOTE | 2024-12-23 09:56 | Pharmacy Report ---
- Date of Service December 23, 2024 - Pharmacy CVA/TIA Medication Review Medications to Prevent Stroke handout has been added to the patients discharge packet. Antiplatelet(s) * continue aspirin 81mg PO daily * continue Plavix 75mg PO daily Cholesterol * High intensity statin: increase to atorvastatin 80 mg daily DVT Prophylaxis * SCD knee Therapeutic Anticoagulation * No history of Afib/Aflutter noted Type 2 Diabetes * Patient does not have T2DM, HbA1c excellent at 5.2% (12/23/24)
[2024-12-23 10:34] LABS: Appearance Urine Clear (Clear); Bilirubin Urine Negative (Negative); Blood Urine Negative (Negative); Color Urine Yellow; Glucose Urine UA Negative (Negative); Ketones Urine Negative (Negative); Leukocyte Esterase Urine 1+ (Negative); Nitrite Urine Negative (Negative); Protein Urine Negative (Negative); Urobilinogen Urine Negative (Negative)
[2024-12-23 10:51] LABS: RBC Urine 0-2 /hpf (0-2); WBC Urine 0-5 /hpf (0-5)
[2024-12-23 10:52] LABS: Bacteria Urine None Seen (None Seen); Calcium Oxalate Crystals Urine Present (None Prsent)
[2024-12-23 11:35] VITALS: BP 164/79; RESP 18; TEMP 97.7
[2024-12-23] MEDS ORDERED: STROKE PATIENT DISCHARGE STA (13:41)
[2024-12-23 13:43] VITALS: PULSE 89
--- NOTE | 2024-12-23 15:40 | Discharge Summary ---
Discharge Summary Date of Service December 23, 2024 Principal Dx & Hospital Course #1 = Principal Diagnosis (1) TIA (transient ischemic attack): Event monitor lipitor increase from 40mg to 80mg (2) Mild dehydration: encourage 7-8 glasses of water daily hold amlodipine (3) HTN (hypertension): Plan Patient is an 83-year-old female with past medical history of previous TIA, s/p Left TCAR 2022 on aspirin and Plavix, breast cancer s/p lumpectomy, hyperlipidemia, GERD, hypertension. Patient presented with persistent dizziness and an episode of vision changes that lasted for several minutes, similar to her previous TIA. Head CTA and neck CTA essentially negative. Patient is being admitted for stroke workup including MRI. #TIA - Suspected TIA as symptoms have resolved. History of TIA with similar symptoms. Head and neck CTA negative. No PFO noted on previous echoes. - telestroke recommending admission for stroke workup - stroke without TNK order set - active ROM, Q4H neuro checks - Continue daily baby aspirin and Plavix - increase atorvastatin 40 Mg daily to 80 Mg daily, lipid panel order and adjust as needed - Allow for permissive hypertension with goal parameters 220/110 until MRI resulted - if no acute changes seen, decrease systolic <180 --brain MRI w/o contrast negative dizziness resolved - lipid panel and A1C with AM labs event monitoring #mild dehydration - 2/2 poor po intake. Contributing to above. BUN/Cr mildly elevated (24.7). Received 1L NSS in ED. - promote oral hydration - repeat BMP with AM labs -hold amlodipine till her BP improved to 130/80 #HTN stable Holding amlodipine, carvedilol, losartan with permissive hypertension #GERD - stable -continue PPI #breast CA - s/p lumpectomy. Yearly MRI, follows with Dr. Monterroso CCP. No current treatment. VTE ppx: SCDs, low risk and stroke workup Dispo:med/tele obs; anticipate dc home 12/23 Notes For Next Care Provider orthostatic BP if appeite remained limited, then hold amlodipine if her SBP is below 130 repeat CBC to ensure no anemia event monitoring Medication Changes From Visit amlodipine being held Admission HPI Per Admitting Provider Patient is an 83-year-old female with past medical history of previous TIA, s/p LCA stent 2022 on aspirin and Plavix, breast cancer s/p lumpectomy, hyperlipidemia, GERD, hypertension. Patient presented with persistent dizziness and an episode of vision changes that lasted for several minutes, similar to her previous TIA. Head CTA and neck CTA essentially negative. Patient is being admitted for stroke workup including MRI. No stroke alert called given symptoms outside of TNK window. Telestroke recommending admission with stroke workup. Patient seen at bedside with her friend present. She stated she has been stressed for several weeks given her was in the hospital and just discharged home yesterday. She feels as though she is dehydrated and not drinking enough fluids recently, BUN/creatinine elevated and received 1L NSS bolus in ED. Patient stated that yesterday morning she woke up and just did not feel right with lightheadedness. The lightheadedness is still persistent and she thought that was secondary to dehydration. However she did note an episode of vision changes in which she felt like she missing parts of her vision. She did not see dots or flashes however when she looked at something sections were missing. When she had a TIA in 2022 she was driving and when she looked at the speed limits on the center of it was missing. Patient also noted in October she had an episode where she was watching TV and it became very weepy for several minutes. Patient denies any other strokelike symptoms, denies headaches, slurred speech, facial droop, numbness, tingling, ambulatory dys function. She denies any recent flulike symptoms, nausea, vomiting, diarrhea. She was a former smoker but quit in 1999. She drinks 1 glass of wine with dinner daily. She does not use oxygen at baseline. She did not get any home medications today and is due for her aspirin and Plavix. She wishes to be DNR/DNI. Patient is agreeable to observation status with MRI. She stated she had an echocardiogram in the past month with bree, unit aid to work on obtaining records. Hospital course she was having dizziness, anorexia and soft blood pressure, her brain MRI is negative and CTA is negative for MCA infarct she's has carotid repair in Summer 2023, she will remained on aspirin and plavix. her lipitor increased to 80mg her amlodipine, coreg and losartan being held she will need to be off amlodipine for 48-72 hours Discharge Exam VITALS: Reviewed. WEIGHT/BMI reviewed. GEN: Healthy appearing, well-developed, NAD. PSYCH: Good Judgment. AOx3. Normal memory, mood, and affect. HEENT -Head: NC/AT; Neuro: AAOx3; 5/5 strength; normal finger to nose; normal heel to bran no facial droop; no slurred speech NECK: Supple, with no masses. CV: RRR, no m/r/g. LUNGS: CTAB, no w/r/c. ABD: Soft, NT/ND, NBS, no masses or organomegaly. : N/A SKIN: multiple skins lesion in the back EXT: No clubbing, cyanosis, or edema. Discharge Plan Discharge Items Patient Disposition: Home - Self-Care Reason For Visit: STROKE WORKUP Discharge Diagnosis: TIA, dizziness, low BP Condition on Discharge: Fair Goals: follow up with cardiology and wear event monitor for 2-4 weeks if you have ongoing dizziness, you need to has brain MRI with and without contrast hold amlodipine but stay on coreg if your blood presure is below 130/80, hold amlodipine Activity: Per Instructions section Lifting: Gradually increase as tolerated Bathing: No limitations Exercise/Sports: Gradually increase as tolerated Non-emergency contact: Primary Care Provider Call non-emergency contact if: your symptoms worsen and your rectal temperature is above 100.4 Follow-up/Referrals: Shanon Perry [Primary Care Provider] - (PLEASE CALL YOUR PRIMARY CARE PROVIDER TO SCHEDULE A HOSPITAL FOLLOW-UP APPOINTMENT WITHIN 7-10 DAYS) Diet: Low Fat Addtl Attending Provider Instructions: avoid dehydration. follow up with cardiology after you increased the statin dosage; recheck your lipid panel in 3-4 months Pending Studies at Discharge: Yes Studies:: event monitoring; repeat lipid panel in 3-4 months Stand-Alone Forms: My [employer], Smoking Cessation Medications and DC Order Prescriptions: New atorvastatin [Lipitor] 80 mg tablet 80 mg PO HS Qty: 30 0RF Continued Lumigan 0.01 % drops 1 drp ophthalmic (eye) DIRECTED Rx Instructions: Every other night, alternating with eye ointment. vitamin B complex Tablet 1 tab PO QAM carvedilol 3.125 mg tablet 3.125 mg PO BID cholecalciferol (vitamin D3) [Vitamin D3] 125 mcg (5,000 unit) Tablet 125 mcg PO QAM turmeric root extract 500 mg Tablet 1,000 mg PO QAM clopidogrel 75 mg tablet 75 mg PO QAM PreserVision AREDS 2,148 mcg-113 mg-45 mg-17.4mg Tablet 2 tab PO BID Rx Instructions: administer with AM and PM meals losartan 50 mg tablet 50 mg PO DAILY ketoconazole 2 % shampoo 1 applic TOPICAL 3XWK triamcinolone acetonide 0.1 % cream 1 applic topical BID PRN (Reason: Red Rash) omeprazole 20 mg capsule,delayed release(DR/EC) 20 mg PO DAILY magnesium 250 mg Tablet 250 mg PO DAILY fluocinonide 0.05 % cream 1 applic topical BID PRN (Reason: Red Spots) clobetasol 0.05 % shampoo 1 applic TOPICAL HS Rx Instructions: Apply to scalp omega 7-rax-vfs-fish oil 900-1,400 mg Capsule,Delayed Release(Dr/Ec) 1 cap PO DAILY Eye Ointment 1 applic OPB DIRECTED Rx Instructions: Apply every other night alternating with Lumigan eye drops. Pt unsure of name/strength, gets it directly from industrial management teacher. aspirin 81 mg tablet,delayed release (DR/EC) 81 mg PO DAILY Held amlodipine 5 mg tablet 5 mg PO DAILY Hold Instructions: Resume on 12/26/24. hold amlodipine as long as your blood pressure is below 130/80 Discontinued atorvastatin 40 mg tablet 40 mg PO HS Discharge Orders: Discharge Order (Routine); Ordered 12/23/24 Ordered By: Delia Garcia/Other Patient Handouts: Dehydration, TIA Dc, Blood Pressure Check Steps Admission Data Admit Date/Time: 12/22/24 12:02 Attending Provider: Delia Coyle Admit Provider: Moses Macias Primary Care Provider: Shanon Perry Other Providers: Moses Macias Other Interventions: Discharge Summary Assessment (RN) Last Done: 12/23/24 13:42 Hospital Stay Data Consultations 12/22/24 11:09 ED Decision to Admit Stat Diagnostic Imagining Performed 12/22/24 07:30 CT angio head wo/w Stat CT angio neck with con Stat 12/22/24 11:44 MRI Brain [MR brain wo con] Routine Pending Results Patient Have Any Pending Studies at Discharge: Yes Discharge Instructions Given to Patient (Per Discharging Provider) avoid dehydration. follow up with cardiology after you increased the statin dosage; recheck your lipid panel in 3-4 months Total Time Total Time Spent Total Time Spent (In Minutes): 35 minutes Coding Level of Care Code 99114 INP/OBS DISCH >30 MIN Diagnoses TIA (transient ischemic attack) G45.9 Mild dehydration E86.0 HTN (hypertension) I10 Time Spent (min) 35
== END 2024-12-23 14:14 | disposition home or self-care (01) ==
LOC: ED 07:16 → INTOOBSV 12:02 → EDINP 12:02 → SUATTDRO 12:02 → 2N 14:21